=== PATIENT | female | born 1940 | race Hispanic/Latino ===

== ENCOUNTER 2020-04-17 15:16 | Inpatient (IN) | payer OTHER ==
[~2020-04-17] VITALS: Ht 162.6 cm; Wt 88.5 kg
[~2020-04-17 15:16] MED LIST: CYCLOBENZAPRINE5 MG PO; GLYBURIDE PO; LEVOTHYROXINE PO; LISINOPRIL; LOSARTAN-HCTZ1 EACH PO; METFORMIN HCL1000 MG; METFORMIN PO; TRAMADOL PO; TUMS200 MG PO; TYLENOL EXTRA500 MG PO; ZYRTEC10 M3; aleve; sudafed; symbicort inhaler
--- OUTSIDE RECORDS SUMMARY | 2020-04-17 15:45 | XMS REPORT | Clinical Summary ---
Author Author [facility] Address Unknown Phone Unavailable Care Team Providers Care Material Loader Name Role Phone Dirk Anna DO PCP Allergies Not on File Medications Not on file Active Problems Not on file Encounters Care Team Description Date Type Specialty 04/14/2020 Travel 04/12/2020 Travel 04/09/2020 Travel 04/07/2020 Travel 04/02/2020 Travel 03/29/2020 Travel 03/25/2020 Travel Ton Giraldo MD Pain in unspecified joint (Primary Dx) 03/22/2020 Transcribe Physical Therapy Orders 03/22/2020 Travel 03/18/2020 Travel 03/15/2020 Travel 03/10/2020 Travel 03/08/2020 Travel 03/03/2020 Travel 03/01/2020 Travel 02/25/2020 Travel 02/23/2020 Travel Ton Giraldo MD Pain in unspecified joint (Primary Dx) 02/23/2020 Transcribe Physical Therapy Orders 02/19/2020 Travel 02/16/2020 Travel 02/11/2020 Travel 02/09/2020 Travel 02/06/2020 Travel 02/04/2020 Travel 01/30/2020 Travel 01/26/2020 Travel 01/21/2020 Travel Ton Giraldo MD Pain in unspecified joint (Primary Dx) 01/21/2020 Transcribe Physical Therapy Orders Sebastian Costa MD 06/25/2019 Telephone Physical Therapy Sebastian Costa MD Osteoarthritis of multiple joints, unspe cified osteoarthritis type (Primary Dx) 06/16/2019 Transcribe Physical Therapy Orders Sebastian Costa MD Generalized osteoarthrosis, involving mu ltiple sites (Primary Dx) 04/17/2019 Transcribe Physical Therapy Orders after 04/17/2019 Social History Date Tobacco Use Types Packs/Day Years Used Never Assessed Sex Assigned at Date Recorded Not on file Industry Job Start Date Occupation Not on file Not on file Not on file Travel End Travel History Travel Start No recent travel history available. Date Recorded COVID-19 Exposure Response 04/14/2020 9:48 AM CDT In the last month, have you been in contact with No / Unsure someone who was confirmed or suspected to have Coronavirus / COVID-19? Last Filed Vital Signs Not on file Plan of Treatment Care Team Description Date Type Specialty Ton Giraldo MD [address] [place] [address] [phone] Josefina Sousa, FINISHED CLOTH EXAMINER 04/19/2020 Office Visit Physical Therapy Ton Giraldo MD [address] [place] [address] [phone] Josefina Sousa, FINISHED CLOTH EXAMINER 04/21/2020 Office Visit Physical Therapy Ton Giraldo MD [address] [place] [address] [phone] Josefina Sousa, FINISHED CLOTH EXAMINER 04/26/2020 Office Visit Physical Therapy Ton Giraldo MD [address] [place] [address] [phone] Josefina Sousa, FINISHED CLOTH EXAMINER 04/28/2020 Office Visit Physical Therapy Ton Giraldo MD [address] [place] [address] [phone] Josefina Sousa, FINISHED CLOTH EXAMINER 05/05/2020 Office Visit Physical Therapy Ton Giraldo MD [address], [place] 739[address] Subha Gann, PT 05/07/2020 Office Visit Physical Therapy Ton Giraldo MD [address] [place] [address] [phone] Vidya Alarcon, PT 05/10/2020 Office Visit Physical Therapy Ton Giraldo MD [address] [place] [address] [phone] Taniya Donohue, PT 05/12/2020 Office Visit Physical Therapy Ton Giraldo MD [address] [place] [address] [phone] Taniya Donohue, PT 05/20/2020 Office Visit Physical Therapy Ton Giraldo MD [address], [place] [phone] Josefina Sousa, FINISHED CLOTH EXAMINER 05/21/2020 Office Visit Physical Therapy Ton Giraldo MD [address], [place] [phone] Josefina Sousa, FINISHED CLOTH EXAMINER 05/24/2020 Office Visit Physical Therapy Health Maintenance Due Date Last Done Comments DIABETIC RETINAL EYE EXAM 1940 DIABETIC FOOT EXAM 1950 URINE MICROALBUMIN 1950 SHINGLES VACCINES (#1) 1990 INFLUENZA VACCINE 04/10/2020 05/18/2018, 06/01/2017, 06/15/2016, Additional history exists 65+ PNEUMOCOCCAL VACCINE Completed 06/18/2017, 05/10/2015 Results Not on fileafter 04/17/2019 Insurance Type Payer Benefit Subscriber ID Effective Phone Address Plan / Dates Group HMO DEVOTED HEALTH DEVOTED xxxxxx [id number] HEALTH resent Advance Directives For more information, please contact: [phone] Patient Rehab Aid Explanation Type Date Recorded Advance Directives, Living Will and Medical Power of Yoga Coordinator
--- OUTSIDE RECORDS SUMMARY | 2020-04-17 15:46 | XMS REPORT ---
Author Author GASTON FRANCO Organization Unknown Address Unknown Phone Care Team Providers Care Stunt Woman Name Role Phone DESTINEE FRANCO PP Unavailable Reason for Referral No Reason for Referral was given. History of Present Illness No HPI available. 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); (Active) Medication * Lisinopril-Hydrochlorothiazide 20-12.5 MG Oral Tablet (Active) * Levothyroxine Sodium 100 MCG Oral Tablet (Active) * ValACYclovir HCl 1 GM Oral Tablet; TAKE 2 TABLETS TWICE DAILY; Start Date: 09/17/2012; End Date: (Active) * PARoxetine HCl 20 MG Oral Tablet (Active) * Singulair 10 MG Oral Tablet (Active) * Naproxen 500 MG Oral Tablet (Active) * Abreva 10 % External Cream; APPLY AND RUB IN 5 TIMES DAILY UNTIL HEALED.; Start Date: 09/17/2012; End Date: (Active) * Gabapentin 100 MG Oral Capsule; TAKE 1 CAPSULE BEDTIME.MAY INCREASE TO 3 CAPSULES AT BEDTIME TOLERATED.; Start Date: 09/18/2012; End Date: (Active) * Symbicort 160-4.5 MCG/ACT Inhalation Aerosol; Start Date: 09/30/2012 (Active) * GlyBURIDE-MetFORMIN 5-500 MG Oral Tablet; TAKE 2 TABLET TWICE DAILY; Start Date: 09/30/2012; End Date: (Active) * Losartan Potassium-HCTZ 50-12.5 MG Oral Tablet; TAKE 1 TABLET TWICE DAILY.; Start Date: 09/30/2012 (Active) * TraMADol HCl 50 MG Oral Tablet; Start Date: 09/30/2012 (Active) * Cyanocobalamin 1000 MCG/ML Injection Solution; INJECT 1 ML INTRAMUSCULARLY ONCE A MONTH; Start Date: 09/30/2012; End Date: (Active) Allergies and Adverse Reactions * Penicillins (Active) Past Medical History * History of Herpes Simplex Type I (054.9); (Resolved) Procedures Procedure Procedure Date Date Completed Status Hysterectomy - - Resolved Social History * Never A Smoker (Active) Advance Directives * No Advance Directives available. Encounters * AUDIT 10/03/2012 * CAMILLA, Provider: DESTINEE FRANCO, Status: Will, Time: 8:15 AM 10/15/2012
--- OUTSIDE RECORDS SUMMARY | 2020-04-17 15:46 | XMS REPORT ---
Author Author Augustus GASTON Eduardo Organization Unknown Address Unknown Phone Care Team Providers Care Coreroom Foundry Laborer Name Role Phone Ping Coffman PP Unavailable Reason for Referral No Reason for Referral was given. History of Present Illness No HPI available. Problems * Normal Routine History And Physical Senior Citizen (65-80) (V70.0); ( Active) * Sciatica (724.3); (Active) * Asthma (493.90); (Active) * Pain In Flank (789.09); (Active) * Limb Pain (729.5); (Active) * Anemia (285.9); (Active) * Visit For: Screening Exam For Malignant Neoplasm Cervix (V76.2); ( Active) * Allergic Rhinitis (477.9); (Active) * Depression With Anxiety (300.4); (Active) * Hypothyroidism (244.9); (Active) * Benign Essential Hypertension (401.1); (Active) * Type 2 Diabetes Mellitus - Uncomplicated, Controlled (250.00); (Active) * Vitamin B12 Deficiency (266.2); (Active) Medication * Levothyroxine Sodium 112 MCG Oral Tablet; TAKE ONE TABLET BY MOUTH EVERY DAY; Start Date: 07/21/2013; End Date: (Active) * Symbicort 160-4.5 MCG/ACT Inhalation Aerosol; INHALE 2 PUFFS DAILY PRN; Start Date: 09/30/2012 (Active) * Losartan Potassium-HCTZ 100-25 MG Oral Tablet; TAKE 1 TABLET DAILY.; Start Date: 09/30/2012; End Date: (Active) * TraMADol HCl 50 MG Oral Tablet; TAKE ONE TABLET BY MOUTH EVERY 12 HOURS NEEDED; Start Date: 09/30/2012; End Date: (Active) * GlyBURIDE-MetFORMIN 5-500 MG Oral Tablet; TAKE TWO TABLETS BY MOUTH TWICE A DAY; Start Date: 09/30/2012; End Date: (Active) * Nebulizer Compressor KIT; USE DIRECTED.; Start Date: 05/27/2013 (Active) * Levalbuterol HCl 1.25 MG/0.5ML Inhalation Nebulization Solution; TAKE 1 VIAL IN NEBULIZER 3 TIMES A DAY.; Start Date: 05/26/2013 (Active) * Caltrate 600+D Plus TABS; TAKE 1 TABLET DAILY DIRECTED. (Active) * Probiotic CAPS; TAKE 1 CAPSULE DAILY (Active) * Cyclobenzaprine HCl 5 MG Oral Tablet; TAKE ONE TABLET BY MOUTH EVERY NIGHT AT BEDTIME NEEDED; Start Date: 05/29/2013; End Date: (Active) * Naproxen 500 MG Oral Tablet; TAKE ONE TABLET BY MOUTH TWO TIMES A DAY WITH FOOD FOR 7 DAYS THEN TAKE ONE TABLET BY MOUTH EVERY 12 HOURS NEEDED; Start Date: 09/22/2013; End Date: (Active) * Betamethasone Valerate 0.1 % External Cream; APPLY SPARINGLY TO AFFECTED AREA(S) TWICE DAILY; Start Date: 12/19/2013; End Date: (Active) * Clotrimazole Anti-Fungal 1 % External Cream; APPLY SPARINGLY TO AFFECTED AREA(S) TWICE DAILY; Start Date: 12/19/2013; End Date: (Active) * Azithromycin 250 MG Oral Tablet; TAKE 2 TABLETS ON DAY 1 THEN TAKE 1 TABLET A DAY FOR 4 DAYS.; Start Date: 12/25/2013; End Date: (Active) * Blood Pressure Monitor KIT; use as needed to check blood pressure; Start Date: 01/09/2014 (Active) Allergies and Adverse Reactions * Penicillins (Active) * Adhesive Tape (Active) Past Medical History * History of Herpes Simplex Type I (054.9); (Resolved) * History of Vitamin B12 Deficiency (266.2); (Resolved) * 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); ( Resolved) * 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); (Resolved) * History of Vaccines Prophylactic Need Against Influenza (V04.81); ( Resolved) Procedures Procedure Procedure Date Date Completed Status Hysterectomy - - Resolved Tonsillectomy - - Resolved Cataract Surgery - - Resolved Cholecystectomy - - Resolved Thyroid Surgery Total Thyroidectomy - - Resolved Immunization * Influenza (Lot #: [id number]) - Administered on: 05/19/2013 Family History * Family history of Congestive Heart Failure (Active) * Family history of Diabetes Mellitus (V18.0); (Active) * Family history of Osteoarthritis (V17.7); (Active) Social History * Never A Smoker (Active) * Alcohol Use (Active) * Marital History - Single (Active) * Occupation: Retired (Active) Treatment Plan * Medication Use 12/19/2013 Routine Advance Directives * No Advance Directives available. Encounters * AUDIT 01/14/2014 * JUANP, Provider: DESTINEE FRANCO, Status: Will, Time: 10:30 AM 03/30/2014
--- OUTSIDE RECORDS SUMMARY | 2020-04-17 15:46 | XMS REPORT ---
Author Author GASTON FRANCO Organization Unknown Address Unknown Phone Care Team Providers Care Reed Or Wind Instrument Repairer Name Role Phone DESTINEE FRANCO PP Unavailable Reason for Referral No Reason for Referral was given. History of Present Illness No HPI available. 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); (Active) * Vomiting (Symptom) (787.03); (Active) * Hypothyroidism (244.9); (Active) * Type 2 Diabetes Mellitus - Uncomplicated, Controlled (250.00); (Active) * Vaccines Prophylactic Need Against Influenza (V04.81); (Active) * Vitamin B12 Deficiency (266.2); (Active) * Asthma (493.90); (Active) Medication * Levothyroxine Sodium 112 MCG Oral Tablet; TAKE 1 TABLET DAILY.; Start Date: ; End Date: (Active) * Singulair 10 MG Oral Tablet (Active) * Losartan Potassium-HCTZ 50-12.5 MG Oral Tablet; TAKE 1 TABLET TWICE DAILY.; Start Date: 09/30/2012 (Active) * Cyanocobalamin 1000 MCG/ML Injection Solution; INJECT 1 ML INTRAMUSCULARLY ONCE A MONTH; Start Date: 09/30/2012; End Date: (Active) * TraMADol HCl 50 MG Oral Tablet; TAKE 1 TABLET EVERY 12 HOURS NEEDED.; Start Date: 09/30/2012; End Date: (Active) * Symbicort 160-4.5 MCG/ACT Inhalation Aerosol; INHALE 2 PUFFS DAILY PRN; Start Date: 09/30/2012 (Active) * GlyBURIDE-MetFORMIN 5-500 MG Oral Tablet; TAKE 2 TABLET TWICE DAILY; Start Date: 09/30/2012; End Date: (Active) * Aleve TABS; TAKE 2 TABLET DAILY (Active) * Azithromycin 250 MG Oral Tablet; TAKE 2 TABLETS ON DAY 1 THEN TAKE 1 TABLET A DAY FOR 4 DAYS.; Start Date: 05/26/2013; End Date: (Active) * Levalbuterol HCl 1.25 MG/0.5ML Inhalation Nebulization Solution; TAKE 1 VIAL IN NEBULIZER 3 TIMES A DAY.; Start Date: 05/26/2013; End Date: (Active) * Nebulizer Compressor KIT; USE DIRECTED.; Start Date: 05/27/2013 (Active) * Flexeril 5 MG TABS; TAKE 1 TABLET AT BEDTIME NEEDED. (Active) * Cyclobenzaprine HCl 5 MG Oral Tablet; TAKE ONE TABLET BY MOUTH EVERY NIGHT AT BEDTIME NEEDED; Start Date: 05/29/2013; End Date: (Active) Allergies and Adverse Reactions * Penicillins (Active) * Adhesive Tape (Active) Past Medical History * History of Herpes Simplex Type I (054.9); (Resolved) * History of Vitamin B12 Deficiency (266.2); (Resolved) Procedures Procedure Procedure Date Date Completed Status Hysterectomy - - Resolved Tonsillectomy - - Resolved Cataract Surgery - - Resolved Cholecystectomy - - Resolved Thyroid Surgery Total Thyroidectomy - - Resolved Immunization * Influenza (Lot #: [id number]) - Administered on: 05/19/2013 Family History * Family history of Congestive Heart Failure (Active) * Family history of Diabetes Mellitus (V18.0); (Active) * Family history of Osteoarthritis (V17.7); (Active) Social History * Never A Smoker (Active) * Alcohol Use (Active) * Marital History - Single (Active) * Occupation: Retired (Active) Advance Directives * No Advance Directives available. Encounters * AUDIT 05/29/2013 * ECL, Provider: DESTINEE FRANCO, Status: Pen, Time: 10:00 AM 08/11/2013
--- OUTSIDE RECORDS SUMMARY | 2020-04-17 15:46 | XMS REPORT ---
Author Author GASTON FRANCO Organization Unknown Address Unknown Phone Care Team Providers Care Toll Bridge Operator Name Role Phone DESTINEE FRANCO PP Unavailable Reason for Referral No Reason for Referral was given. History of Present Illness No HPI available. Problems * Normal Routine History And Physical Senior Citizen (65-80) (V70.0); ( Active) * Sciatica (724.3); (Active) * Depression With Anxiety (300.4); (Active) * Allergic Rhinitis (477.9); (Active) * Vomiting (Symptom) (787.03); (Active) * Asthma (493.90); (Active) * Vaccines Prophylactic Need Against Influenza (V04.81); (Active) * Hypothyroidism (244.9); (Active) * Benign Essential Hypertension (401.1); (Active) * Type 2 Diabetes Mellitus - Uncomplicated, Controlled (250.00); (Active) * Anemia (285.9); (Active) * Pain In Flank (789.09); (Active) * Limb Pain (729.5); (Active) * Urinary Tract Infection (599.0); (Active) * Vitamin B12 Deficiency (266.2); (Active) Medication * Levothyroxine Sodium 112 MCG Oral Tablet; TAKE ONE TABLET BY MOUTH EVERY DAY; Start Date: 07/21/2013; End Date: (Active) * Cyanocobalamin 1000 MCG/ML Injection Solution; INJECT 1 ML INTRAMUSCULARLY ONCE A MONTH; Start Date: 09/30/2012; End Date: (Active) * Symbicort 160-4.5 MCG/ACT Inhalation Aerosol; INHALE 2 PUFFS DAILY PRN; Start Date: 09/30/2012 (Active) * GlyBURIDE-MetFORMIN 5-500 MG Oral Tablet; TAKE 2 TABLET TWICE DAILY; Start Date: 09/30/2012; End Date: (Active) * Losartan Potassium-HCTZ 50-12.5 MG Oral Tablet; TAKE ONE TABLET BY MOUTH TWICE A DAY; Start Date: [...] CAPS; TAKE 1 CAPSULE DAILY (Active) * Ciprofloxacin HCl 500 MG Oral Tablet; TAKE 1 TABLET TWICE DAILY.; Start Date: 09/22/2013; End Date: (Active) * Naproxen 500 MG Oral Tablet; Take 1 po bid with food for seven days. 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); (Resolved) Procedures Procedure Procedure Date Date Completed Status Hysterectomy - - Resolved Tonsillectomy - - Resolved Cataract Surgery - - Resolved Cholecystectomy - - Resolved Thyroid Surgery Total Thyroidectomy - - Resolved Immunization * Influenza (Lot #: [id number]) - Administered on: 05/19/2013 Family History * Family history of Congestive Heart Failure (Active) * Family history of Diabetes Mellitus (V18.0); (Active) * Family history of Osteoarthritis (V17.7); (Active) Social History * Never A Smoker (Active) * Alcohol Use (Active) * Marital History - Single (Active) * Occupation: Retired (Active) Treatment Plan * [[facility]] CBC (INCLUDES DIFF/PLT) 10/17/2013 Routine Advance Directives * No Advance Directives available. Encounters * AUDIT 09/25/2013
--- OUTSIDE RECORDS SUMMARY | 2020-04-17 15:46 | XMS REPORT ---
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); (Active) Medication * Levothyroxine Sodium 100 MCG Oral Tablet (Active) * ValACYclovir HCl 1 GM Oral Tablet; TAKE 2 TABLETS TWICE DAILY; Start Date: 09/17/2012; End Date: (Active) * PARoxetine HCl 20 MG Oral Tablet (Active) * Singulair 10 MG Oral Tablet (Active) * Abreva 10 % External Cream; APPLY AND RUB IN 5 TIMES DAILY UNTIL HEALED.; Start Date: 09/17/2012; End Date: (Active) * Gabapentin 100 MG Oral Capsule; TAKE 1 CAPSULE BEDTIME.MAY INCREASE TO 3 CAPSULES AT BEDTIME TOLERATED.; Start Date: 09/18/2012; End Date: (Active) * Symbicort 160-4.5 MCG/ACT Inhalation Aerosol; Start Date: 09/30/2012 (Active) * Losartan Potassium-HCTZ 50-12.5 MG Oral Tablet; TAKE 1 TABLET TWICE DAILY.; Start Date: 09/30/2012 (Active) * GlyBURIDE-MetFORMIN 5-500 MG Oral Tablet; TAKE 2 TABLET TWICE DAILY; Start Date: 09/30/2012; End Date: (Active) * Cyanocobalamin 1000 MCG/ML Injection Solution; INJECT 1 ML INTRAMUSCULARLY ONCE A MONTH; Start Date: 09/30/2012; End Date: (Active) * TraMADol HCl 50 MG Oral Tablet; TAKE 1 TABLET EVERY 12 HOURS NEEDED.; Start Date: 09/30/2012; End Date: (Active) Allergies and Adverse Reactions * Penicillins (Active) Past Medical History * History of Herpes Simplex Type I (054.9); (Resolved) Procedures Procedure Procedure Date Date Completed Status Hysterectomy - - Resolved Social History * Never A Smoker (Active) Advance Directives * No Advance Directives available. Encounters * AUDIT 11/29/2012
--- OUTSIDE RECORDS SUMMARY | 2020-04-17 15:46 | XMS REPORT ---
Author Author GASTON FRANCO Organization Unknown Address Unknown Phone Care Team Providers Care Automotive Window Tinter Name Role Phone DESTINEE FRANCO PP Unavailable [...] TABS; TAKE 2 TABLET DAILY (Active) * Nebulizer Compressor KIT; USE DIRECTED.; Start Date: 05/27/2013 (Active) * Flexeril 5 MG TABS; TAKE 1 TABLET AT BEDTIME NEEDED. (Active) * Levalbuterol HCl 1.25 MG/0.5ML Inhalation Nebulization Solution; TAKE 1 VIAL IN NEBULIZER 3 TIMES A DAY.; Start Date: 05/26/2013 (Active) * Cyclobenzaprine HCl 5 MG Oral [...] - Resolved Immunization * Influenza (Lot #: [id number]) - Administered on: 05/19/2013 Family History * Family history of Congestive Heart Failure (Active) * Family history of Diabetes Mellitus (V18.0); (Active) * Family history of Osteoarthritis (V17.7); (Active) Social History * Never A Smoker (Active) * Alcohol Use (Active) * Marital History - Single (Active) * Occupation: Retired (Active) Advance Directives * No Advance Directives available. Encounters * AUDIT 06/23/2013 * ECL, Provider: DESTINEE FRANCO, Status: Will, Time: 10:00 AM 08/11/2013
--- OUTSIDE RECORDS SUMMARY | 2020-04-17 15:46 | XMS REPORT ---
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 Encounters * AUDIT 04/29/2013 * INJ, Provider: DESTINEE FRANCO, Status: Will, Time: 4:30 PM 05/26/2013
--- OUTSIDE RECORDS SUMMARY | 2020-04-17 15:46 | XMS REPORT ---
Author Author GASTON FRANCO Organization Unknown Address Unknown Phone Care Team Providers Care Liquid Fertilizer Servicer Name Role Phone DESTINEE FRANCO PP Unavailable Reason for Referral No Reason for Referral was given. History of Present Illness No HPI available. 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); (Active) * Vitamin B12 Deficiency (266.2); (Active) * Type 2 Diabetes Mellitus - Uncomplicated, Controlled (250.00); (Active) * Asthma (493.90); (Active) * Allergic Rhinitis (477.9); (Active) * Normal Routine History And Physical Senior Citizen (65-80) (V70.0); ( Active) * Sciatica (724.3); (Active) * Limb Pain (729.5); (Active) * Hypothyroidism (244.9); (Active) * Benign Essential Hypertension (401.1); (Active) * Depression With Anxiety (300.4); (Active) Medication * Levothyroxine Sodium 100 MCG Oral Tablet (Active) * PARoxetine HCl 20 MG Oral Tablet (Active) * Singulair 10 MG Oral Tablet (Active) * Symbicort 160-4.5 MCG/ACT Inhalation Aerosol; Start Date: 09/30/2012 (Active) * ValACYclovir HCl 1 GM Oral Tablet; TAKE 2 TABLETS TWICE DAILY; Start Date: 09/17/2012; End Date: (Active) * Gabapentin 100 MG Oral Capsule; TAKE 1 CAPSULE BEDTIME.MAY INCREASE TO 3 CAPSULES AT BEDTIME TOLERATED.; Start Date: 09/18/2012; End Date: (Active) * Abreva 10 % External Cream; APPLY AND RUB IN 5 TIMES DAILY UNTIL HEALED.; Start Date: 09/17/2012; End Date: (Active) * Losartan Potassium-HCTZ 50-12.5 [...] Procedures Procedure Procedure Date Date Completed Status Tonsillectomy - - Resolved Cataract Surgery - - Resolved Cholecystectomy - - Resolved Thyroid Surgery Total Thyroidectomy - - Resolved Hysterectomy - - Resolved Family History * Family history of Congestive Heart Failure (Active) * Family history of Diabetes Mellitus (V18.0); (Active) * Family history of Osteoarthritis (V17.7); (Active) Social History * Alcohol Use (Active) * Marital History - Single (Active) * Occupation: Retired (Active) * Never A Smoker (Active) Advance Directives * No Advance Directives available. Encounters * AUDIT 05/06/2013 * ECL, Provider: DESTINEE FRANCO, Status: Will, Time: 3:00 PM 05/13/2013 * INJ, Provider: DESTINEE FRANCO, Status: Will, Time: 4:30 PM 05/26/2013
--- OUTSIDE RECORDS SUMMARY | 2020-04-17 15:46 | XMS REPORT ---
Author Author Kevin GASTON Jayce Organization Unknown Address Unknown Phone Care Team Providers Care Moveman Name Role Phone Vidya Brown PP Unavailable Reason for Referral No Reason for Referral was given. History of Present Illness No HPI available. 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 (Active) Allergies and Adverse Reactions * Penicillins [...] - Resolved Immunization * Influenza (Lot #: [id number]) - Administered on: 05/19/2013 Family History * Family history of Congestive Heart Failure (Active) * Family history of Diabetes Mellitus (V18.0); (Active) * Family history of Osteoarthritis (V17.7); (Active) Social History * Never A Smoker (Active) * Alcohol Use (Active) * Marital History - Single (Active) * Occupation: Retired (Active) Treatment Plan * [QLH] TSH, 3RD GENERATION W/REFLEX TO FT4 05/13/2013 Routine * [QLH] VITAMIN B12 05/13/2013 Routine * [QLH] CMP W/EGFR 05/13/2013 Routine * [QLH] HEMOGLOBIN A1c 05/13/2013 Routine * [Q] LIPID PANEL WITH REFLEX TO DIRECT LDL 05/13/2013 Routine Advance Directives * No Advance Directives available. Encounters * AUDIT 05/19/2013 * INJ, Provider: DESTINEE FRANCO, Status: Will, Time: 4:30 PM 05/26/2013 * ECL, Provider: DESTINEE FRANCO, Status: Will, Time: 10:00 AM 08/11/2013
--- OUTSIDE RECORDS SUMMARY | 2020-04-17 15:46 | XMS REPORT ---
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 (Active) * Cyanocobalamin 1000 MCG/ML Injection Solution; [...] Thyroid Surgery Total Thyroidectomy - - Resolved Family History * Family [...] No Advance Directives available. Encounters * AUDIT 05/14/2013 * INJ, Provider: DESTINEE FRANCO, Status: Will, Time: 4:30 PM 05/26/2013 * ECL, Provider: DESTINEE FRANCO, Status: Will, Time: 10:00 AM 08/11/2013
--- OUTSIDE RECORDS SUMMARY | 2020-04-17 15:46 | XMS REPORT | Continuity of Care Document ---
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 Name Role Phone [employer] Unavailable Un available Problems Problem Status Onset Date Classification Date Reported Comments Source Rheumatoid arthritis, unspecified 07/30/2018 02/10/2019 ALVARADO Ortiz Asymptomatic menopausal state 04/23/2018 11/03/2018 ALVARADO Warren J18.9 - "PNEUMONIA, UNSPECIFIED ORGANIS" Active 10/04/2015 [employer] 493.90 - ASTHMA NOS Active 05/27/2013 ALVARADO Warren Limb Pain Active 01/14/2014 [facility] Sciatica Active 01/14/2014 [facility] Hypothyroidism Active 01/14/2014 [facility] Benign Essential Hypertension Active 01/14/2014 [facility] Depression With Anxiety Active 01/14/2014 [facility] Allergic Rhinitis Active 01/14/2014 [facility] Asthma Active 01/14/2014 [facility] Type 2 Diabetes Mellitus - Uncomplicated, Controlled Active 01/14/2014 [facility] Vitamin B12 Deficiency Active 01/14/2014 [facility] Solitary Thyroid Nodule Active 11/29/2012 [facility] Herpes Simplex Type I Active 09/18/2012 [facility] Nontoxic Solitary Thyroid Nodule Active 08/21/2013 [facility] Vomiting (Symptom) Active 11/17/2013 [facility] Vaccines Prophylactic Need Against Influenza Active 10/29/2013 [facility] Anemia Active 01/14/2014 [facility] Pain In Flank Active 01/14/2014 [facility] Urinary Tract Infection Active 11/17/2013 [facility] Other vp strategic partnerships (current) drug therapy 02/10/2019 ALVARADO Ortiz Age-related osteoporosis without current pathological fracture 02/10/2019 AIDAN [place] Encounter for therapeutic drug level monitoring 02/10/2019 ALVARADO Ortiz Unspecified acute lower respiratory infection 02/10/2019 ALVARADO [place] Osteoarthritis involving multiple joints on both sides of body Active Prob chente 04/23/2019 Beth Siddiqui Rheumatoid arthritis of multiple sites w ithout organ or system involvement with positive rheumatoid factor Active Problem Beth Milaloretta High risk medication use Active Diagnosis 04/10/2019 Beth Milaloretta Cervicalgia Active Diagnosis 04/10/2019 Beth Milaloretta Pain, joint, multiple sites Ac tive Diagnosis 0 04/10/2019 Beth Artur Counseling NOS Active Diagnosis 04/10/2019 Beth Milaloretta Medications Medication Details Route Status Patient Instructions Ordering Provider Order Date Source Hydroxychloroquine Sulfate 1.5 tabs Orally Active 200 MG Orally Once a day [facility] 05/17/2019 Beth Milaloretta Folic Acid 1 tablet Orally Active 1 mg Orally Once a day [facility] 05/17/2019 Beth Milaloretta Tramadol HCl 1 tablet as needed Orally Active 50 MG Orally bid [facility] 04/17/2019 Beth Milaloretta Enbrel Mini 50mg Subcutaneously Active 50mg Subcutaneously Onc e weekly [facility] 04/09/2019 Beth Artur Blood Pressure Monitor KIT ; S tart Date: 01/09/2014 (Active) Active 01/09/2014 [facility] Azithromycin 250 MG Oral Tablet ; Start Date: 12/25/2013; End Date: (Active) Active 12/25/2013 [facility] Betamethasone Valerate 0.1 % External Cream ; Start Date: 12/19/2013; End Date: (Active) Active 12/19/2013 [facility] Clotrimazole Anti-Fungal 1 % External Cream ; Start Date: 12/19/2013; End Date: (Active) Active 12/19/2013 [facility] Ciprofloxacin HCl 500 MG Oral Tablet ; Start Date: 09/22/2013; End Date: (Active) Active 09/22/2013 [facility] Naproxen 500 MG Oral Tablet ; Start Date: 09/22/2013; End Date: (Active) Active 09/22/2013 [facility] Levothyroxine Sodium 112 MCG Oral Tablet ; Start Date: 07/21/2013; End Date: (Active) Active 07/21/2013 [facility] Cyclobenzaprine HCl 5 MG Oral Tablet ; Start Date: 05/29/2013; End Date: (Active) Active 05/29/2013 [facility] Nebulizer Compressor KIT ; Sta rt Date: 05/27/2013 (Active) Active 05/27/2013 [facility] Azithromycin 250 MG Oral Tablet ; Start Date: 05/26/2013; End Date: (Active) Active 05/26/2013 [facility] Levalbuterol HCl 1.25 MG/0.5ML Inhalatio n Nebulization Solution ; Start Date: 05/26/2013 (Active) Active 05/26/2013 [facility] Symbicort 160-4.5 MCG/ACT Inhalation Aerosol ; Start Date: 09/30/2012 (Active) Active 09/30/2012 [facility] GlyBURIDE-MetFORMIN 5-500 MG Oral Tablet ; Start Date: 09/30/2012; End Date: (Active) Active 09/30/2012 [facility] Losartan Potassium-HCTZ 50-12.5 MG Oral Tablet ; Start Date: 09/30/2012; End Date: (Active) Active 09/30/2012 [facility] TraMADol HCl 50 MG Oral Tablet ; Start Date: 09/30/2012; End Date: (Active) Active 09/30/2012 [facility] Cyanocobalamin 1000 MCG/ML Injection Solution ; Start Date: 09/30/2012; End Date: (Active) Active 09/30/2012 [facility] Symbicort 160-4.5 MCG/ACT Inhalation Aerosol ; Start Date: 09/30/2012 (Active) Active 09/30/2012 [facility] Losartan Potassium-HCTZ 100-25 MG Oral Tablet ; Start Date: 09/30/2012; End Date: (Active) Active 09/30/2012 [facility] Gabapentin 100 MG Oral Capsule ; Start Date: 09/18/2012; End Date: (Active) Active 09/18/2012 [facility] ValACYclovir HCl 1 GM Oral Tablet ; Start Date: 09/17/2012; End Date: (Active) Active 09/17/2012 [facility] Abreva 10 % External Cream ; S tart Date: 09/17/2012; End Date: (Active) Active 09/17/2012 [facility] Levothyroxine Sodium 112 MCG Oral Tablet ; Start Date: ; End Date: (Active) Inactive [facility] Lisinopril-Hydrochlorothiazide 20-12.5 MG Oral Tablet (Active) Active [facility] Levothyroxine Sodium 100 MCG Oral Tablet (Active) Active [facility] PARoxetine HCl 20 MG Oral Tablet (Active) Active [facility] Singulair 10 MG Oral Tablet ( Active) Active [facility] Naproxen 500 MG Oral Tablet ( Active) Active [facility] Flexeril 5 MG TABS (Active) Active [facility] Aleve TABS (Active) Active [facility] Caltrate 600+D Plus TABS (Act micah) Active [facility] Probiotic CAPS (Active) Active [facility] Phenylephrine HCl 10 MG Oral Tablet (Active) Active [facility] Metformin HCl 1 tablet with a meal Orally Active 500 MG Orally Once a day [facility] Beth Namehreen Lantus SoloStar as directed Subcutaneous Active 100 UNIT/ML Subcutaneous [facility] Beth Namehreen Hydroxychloroquine Sulfate 1.5 tabs Orally Active 200 MG Orally [facility] Cetirizine HCl 1 tablet Orally Active 10 MG Orally Once a day [facility] Beth Zaragoza Atorvastatin Calcium 1 tablet Orally Active 40 MG [facility] Metronidazole 1 application to affected area Externally Active 0.75 % Externally Twice a day [facility] Beth Namehreenm Farxiga 1 tablet Orally Active 10 MG Orally Once a day Namehreen Jree n Namehreen Tramadol HCl 1 tablet as needed Orally Active 50 MG Orally bid [facility] Beth Zaragoza Stool Softener 1 capsule as ne eded Orally Active 100 MG Orally Once a day [facility] Beth Zaargoza Restasis 1 drop into affected eye Ophthalmic Active 0.05 % Ophthalmic Twice a day [facility] Beth Namehreen Folic Acid 1 tablet Orally Active 1 mg Orally [facility] Advair Diskus 1 puff Inhalation Active 100-50 MCG/DOSE Inhalat ion Twice a day [facility] Ipratropium-Albuterol 1 puff Inhalation Active 20-100 MCG/ACT Inhalation Four times a day [facility] Beth Namehreen Losartan Potassium 1 tablet Orally Active 100 MG Orally Once a day [facility] Beth Siddiqui Methotrexate 8 tabs Orally Active 2.5 mg Orally Once a we frank Siddiqui Allergies, Adverse Reactions, Alerts Substance Category Reaction Severity Reaction type Status Date Reported Comments Source Penicillin Adverse Reaction Info Not Available Adverse Reaction Active 04/09/2019 Beth Siddiqui Penicillins drug allergy drug allergy Active [facility] Immunizations Immunization Date Given Site Status Last Updated Comments Source Influenza 05/19/2013 completed [facility] Results No Data Provided for This Section Pathology Reports No Data Provided for This Section Diagnostic Reports Report Value Date Source Hand 3 views Bilateral DX CLIN ICAL HISTORY: - M06.9 Rheumatoid arthritis, unspecified; Z79.899 Other vp strategic partnerships (current) drug therapy AGE: 78 years GENDER: Female TECHNIQUE:Bilateral hand radiographs, 3 views. COMPARISON: None FINDINGS: Moderate osseous demineralization.. Left hand: There is no evidence of fracture or dislocation. Stable chronic appearing erosive change in the head of the second and fourth digits as well as in the base of the proximal phalanx of the thumb.. Moderate interphalangeal joint space narrowing in the PIP joints diffusely. Right hand: There is no evidence of fracture or dislocation. Stable erosive change in the heads of the middle phalanges of the third and fourth digits . IMPRESSION: Stable chronic erosive change in the bilateral hands. No specific radiographic evidence of acute erosive change. Moderate osseous demineralization. 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 No pulmonary or pleural-based abnormality is identified. The cardiomediastinal silhouette is normal. No acute osseous abnormality is identified. Surgical fixation hardware seen in the lower cervical spine. IMPRESSION: No acute cardiopulmonary abnormality. 07/23/2018 [facility] Bone Density DXA [employer] MA BONE DENSITY ASSESSMENT: 04/16/2018 CLINICAL DATA: Post menopausal. M81.0 Age-Related Osteoporosis Without Current Pathological Fracture/M81.0 Age-Related Osteoporosis Without Current Pathological Fracture FINDINGS: Bone density evaluation was performed 04/16/2018 on the right femur neck using a Hologic unit. The BMD average for the exam is 0.633 g/cm2. The T-score is -1.90 and the Z-score is 0.20. This matches the World Health Organization's criteria for osteopenia and places the patient at a medium risk for fracture. An additional bone density evaluation was performed 04/16/2018 on the left femur neck using a Hologic unit. The BMD average for the exam is 0.629 g/cm2. The T- score is -2.00 and the Z-score is 0.20. This matches the World Health Organization's criteria for osteopenia and places the patient at a medium risk for fracture. An additional bone density evaluation was performed 04/16/2018 on the right hip using a Hologic unit. The BMD average for the exam is 0.868 g/cm2. The T-score is -0.60 and the Z-score is 1.30. This matches the World Health Organization's criteria for normal bone density and places the patient within normal limits of fracture risk. An additional bone density evaluation was performed 04/16/2018 on the left hip using a Hologic unit. The BMD average for the exam is 0.883 g/cm2. The T-score is -0.50 and the Z-score is 1.40. This matches the World Health Organization's criteria for normal bone density and places the patient within normal limits of fracture risk. An additional bone density evaluation was performed 04/16/2018 on the AP L1-L4 region of spine using a Hologic unit. The BMD average for the exam is 1.205 g/cm2. The T-score is 1.40 and the Z-score is 4.00. This matches the World Health Organization's criteria for normal bone density and places the patient within normal limits of fracture risk. FRAX 10 year probability of major osteoporotic fracture is 13% and hip fracture is 3.4%. IMPRESSION: OSTEOPENIA Patient is at medium risk for fracture. This exam was interpreted at [id number] for KALI Nova 15. 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 Joint alignment is normal. Medial compartment joint space narrowing present. Tricompartmental osteophytes present most pronounced in the medial compartment. Superior patellar enthesophytes present. No joint effusion present. Peripheral vascular atherosclerosis present. Left knee: No fracture, periosteal reaction, or erosions identified. Joint alignment is normal. Medial compartment joint space narrowing present. Tricompartmental osteophytes present most pronounced in the medial compartment. Superior patellar enthesophytes present. No joint effusion present. Peripheral vascular atherosclerosis present. IMPRESSION: Right knee: Tricompartmental osteoarthrosis, Kellgren-Ryan grade 3, moderate most pronounced in the medial compartment. Left knee: Tricompartmental osteoarthrosis, Kellgren-Ryan grade 3, moderate most pronounced in the medial compartment. Peripheral vascular atherosclerosis. 07/20/2016 [facility] Foot 3 views bilateral DX EXAM : XR BILATERAL FEET 3 VIEWS DATE: 01/28/2016 11:43 AM CDT INDICATION: M79.671 Pain in right foot COMPARISON: None TECHNIQUE: AP, lateral, and oblique views of the bilateral feet. DISCUSSION: Generalized diminished bone mineral density. Bilateral hammertoe deformities. There is bilateral joint space narrowing osteophytes of the first MTP joint. There is also joint space narrowing and small osteophytes of the right second MTP joint. Sclerosis and collapse of the right second metatarsal head is present. No erosions identified. There are bilateral small calcaneal enthesophytes. Mild bilateral soft tissue swelling. IMPRESSION: 1. 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 2. Osteoarthrosis of the bilateral first and right second MTP joints. 3. Bilateral small calcaneal enthesophyt es. 01/28/2016 [facility] Knee 3 Views Bilateral DX EXAM : XR BILATERAL KNEES 3 VIEWS DATE: 01/20/2016 9:24 AM CDT INDICATION: M25.561 Pain in right knee COMPARISON: None available. TECHNIQUE: 3 views of bilateral knees FINDINGS: No acute fracture or malalignment is identified. Tricompartmental osteophytes are small to moderate size bilaterally. Medial joint space narrowing is identified in bilateral knees, with no subarticular cystic change or sclerosis. No excessive joint fluid is identified in either knee. Enthesophyte formation is identified at the superior patellar of the right knee. IMPRESSION: Tricompartmental osteoarthrosis of bilateral knee joints, most notably moderate in the bilateral medial compartments. 01/20/2016 [facility] Hand 2 views Bilateral DX EXAM : XR BILATERAL HANDS 2 VIEWS DATE: 01/20/2016 9:24 AM CDT INDICATION: M25.50 Pain in unspecified joint COMPARISON: None available. TECHNIQUE: PA, and lateral views of bilateral hands. FINDINGS: No acute fracture or malalignment is identified. Generalized osteopenia is identified. Multifocal small erosions are noted at the left thumb proximal phalanx, left index finger middle phalanx head, left ring finger middle phalanx head, and questionably at the left long finger middle phalanx head, as well as the right long and ring finger middle phalanx head and right ring finger proximal phalanx head and base. The joint spaces of the hands are preserved. Punctate vascular calcifications are noted at the left hand, radial to the third metacarpal midshaft. IMPRESSION: 1. Multifocal small erosive changes sug gest underlying inflammatory arthropathy, such as rheumatoid arthritis. 2. Generalized osteopenia. 01/20/2016 [facility] Chest 2 views DX EXAM: XR CHES T TWO VIEWS DATE: 10/04/2015 COMPARISON EXAMS: 05/27/2013 CLINICAL INDICATION: Pneumonia. TECHNIQUE: PA and Lateral views DISCUSSION: PA and lateral chest x-rays reveal no lung parenchymal or pleural abnormalities. The cardiomediastinal silhouette, hilar, and pulmonary vascular structures as well as the regional chest wall structures are normal in appearance. Tracheal and mainstem bronchial shadows are normal in appearance. Mild multilevel spondylosis is seen in the thoracic spine. Surgical hardware is again seen in the inferior cervical spine. IMPRESSION: No radiographic evidence of pneumonia. Stable appearance of the chest when compared with 05/27/2013. 10/04/2015 [facility] Chest 2 views No comparison ex am is available. Mild linear opacities are seen in the right lung base, likely due to atelectasis rather than pneumonia. No focal consolidation is seen. No pleural effusion or pneumothorax is seen. The heart size is within normal limits. Lower cervical spine fusion changes are seen. IMPRESSION: 1. Mild right basilar atelectasis. Pneum onia is less likely. Followup is recommended 05/27/2013 [facility] Consultation Notes No Data Provided for This Section Discharge Summaries No Data Provided for This Section History and Physicals No Data Provided for This Section Vital Signs Vital Sign Value Date Comments Source Height 64 0 04/09/2019 Beth Najam Diastolic (mm Hg) 67 04/09/2019 Beth Najam Systolic (mm Hg) 130 04/09/2019 Beth Najam Weight 194 04/09/2019 Beth Najam Height 64 0 03/18/2019 Beth Najam Diastolic (mm Hg) 83 03/18/2019 Beth Najam Systolic (mm Hg) 142 03/18/2019 Beth Najam Weight 194.8 03/18/2019 Beth Najam Encounters Location Location Details Encounter Type Encounter Number Reason For Visit Attending Provider ADM Date DC Date Status Source AUDIT [id number] 09/18/2012 09/18/2012 [facility] AUDIT [id number] 09/30/2012 09/30/2012 [facility] AUDIT [id number] 10/03/2012 10/03/2012 [facility] FUP, Provi dale: HARIKA FRANCO, Status: Pen, Time: 8:15 AM [id number] 10/15/2012 10/03/2012 [facility] AUDIT [id number] 11/29/2012 11/29/2012 [facility] AUDIT [id number] 04/29/2013 04/29/2013 [facility] AUDIT [id number] 05/06/2013 05/07/2013 [facility] ECL, Provi dale: HARIKA FRANCO, Status: Pen, Time: 3:00 PM [id number] 05/13/2013 05/07/2013 [facility] AUDIT [id number] 05/14/2013 05/14/2013 [facility] AUDIT [id number] 05/19/2013 05/19/2013 [facility] AUDIT [id number] 05/20/2013 05/20/2013 [facility] INJ, Provi dale: HARIKA FRANCO, Status: Pen, Time: 4:30 PM [id number] 05/26/2013 05/20/2013 [facility] AUDIT [id number] 05/26/2013 05/26/2013 [facility] OD [id number] 493.90 - ASTHMA NOS HARIKA FRANCO 05/27/2013 Active [facility] AUDIT [id number] 05/29/2013 05/29/2013 [facility] AUDIT [id number] 06/02/2013 06/02/2013 [facility] AUDIT [id number] 06/21/2013 06/21/2013 [facility] AUDIT [id number] 06/23/2013 06/23/2013 [facility] AUDIT [id number] 07/24/2013 07/24/2013 [facility] AUDIT [id number] 07/25/2013 07/25/2013 [facility] MELANIE, Provi dale: HARIKA FRANCO, Status: Pen, Time: 10:00 AM [id number] 08/11/2013 07/25/2013 [facility] AUDIT [id number] 08/21/2013 08/21/2013 [facility] AUDIT [id number] 09/25/2013 09/25/2013 [facility] AUDIT [id number] 10/07/2013 10/07/2013 [facility] AUDIT [id number] 10/08/2013 10/08/2013 [facility] AUDIT [id number] 10/28/2013 10/28/2013 [facility] AUDIT [id number] 10/29/2013 10/29/2013 [facility] WWHelene, Provi dale: HARIKA FRANCO, Status: Pen, Time: 3:15 PM [id number] 11/03/2013 10/29/2013 [facility] AUDIT [id number] 11/04/2013 11/04/2013 [facility] AUDIT [id number] 11/07/2013 11/07/2013 [facility] AUDIT [id number] 11/10/2013 11/11/2013 [facility] AUDIT [id number] 11/12/2013 11/12/2013 [facility] AUDIT [id number] 11/14/2013 11/14/2013 [facility] AUDIT [id number] 11/17/2013 11/17/2013 [facility] MELANIE, Provi dale: HARIKA FRANCO, Status: Pen, Time: 10:30 AM [id number] 12/29/2013 11/17/2013 [facility] AUDIT [id number] 01/02/2014 01/02/2014 [facility] AUDIT [id number] 01/14/2014 01/14/2014 [facility] CAMILLA, Provi dale: HARIKA FRANCO, Status: Pen, Time: 10:30 AM [id number] 03/30/2014 01/14/2014 [facility] [id number] Chriss Pereira 10/04/2015 10/05/[address] [facility] [id number] 02 Harika Forrestisabelle 01/20/2016 01/21/[address] [facility] [id number] 03 Marquis Loza 01/28/2016 01/29/[address] [facility] [id number] 04 Robert Jesus 07/20/2016 07/21/[address] [facility] [id number] [facility] 04/16/2018 04/17/2018 [facility] [id number] [facility] 07/23/2018 07/24/[address] [facility] [id number] 07 Christen Lawsonsaf 06/05/2019 06/06/2019 [facility] Procedures No Data Provided for This Section Assessment and Plan No Data Provided for This Section Plan of Care Plan of Care Date Source Medication Use 12/19/2013 Routine 01/14/2014 [facility] Medication Use 12/19/2013 RoutineFollow- up visit in 3 months 12/29/2013 Routine 01/02/2014 [facility] [Q] IRON, TIBC AND FERRITIN PANEL 11/03/2013 Routine 11/17/2013 [facility] [Q] IRON, TIBC AND FERRITIN PANEL 11/03/2013 Routine 11/14/2013 [facility] [Q] IRON, TIBC AND FERRITIN PANEL 11/03/2013 Routine 11/12/2013 [facility] [Q] IRON, TIBC AND FERRITIN PANEL 11/03/2013 Routine 11/11/2013 [facility] [Q] IRON, TIBC AND FERRITIN PANEL 2013 Routine[QLH] VITAMIN B12 11/03/2013 Routine[QLH] SED RATE BY MODIFIED LAURELREN 11/03/2013 Routine[Q] SUREPATH PAP 11/03/2013 Routine 11/07/2013 [facility] [Q] IRON, TIBC AND FERRITIN PANEL 2013 Routine[QLH] VITAMIN B12 11/03/2013 Routine[QLH] SED RATE BY MODIFIED JACKERGREN 11/03/2013 Routine[Q] SUREPATH PAP 11/03/2013 RoutineFollow-up visit in 2 months 11/03/2013 Routine 11/04/2013 [facility] [QLH] CBC (INCLUDES DIFF/PLT) 10/17/2013 Routine 10/08/2013 [facility] [QLH] CBC (INCLUDES DIFF/PLT) 10/17/2013 Routine 10/07/2013 [facility] [QLH] CBC (INCLUDES DIFF/PLT) 10/17/2013 Routine 09/25/2013 [facility] [QLH] CMP W/EGFR 08/21/2013 Routine[QLH] TSH, 3RD GENERATION W/REFLEX TO FT4 08/21/2013 Routine[Q] LIPID PANEL WITH REFLEX TO DIRECT LDL 08/21/2013 Routine[QLH] CBC (INCLUDES DIFF/PLT) 08/21/2013 Routine[QLH] MICROALBUMIN, RANDOM URINE (W/CREATININE) 08/21/2013 Routine[QLH] HEMOGLOBIN A1c 08/21/2013 Routine 08/21/2013 [facility] XRAY Chest 2 views [id number] 05/26/2013 Routine 05/26/2013 [facility] [QLH] TSH, 3RD GENERATION W/REFLEX TO FT 4 05/13/2013 Routine[QLH] VITAMIN B12 05/13/2013 Routine[QLH] CMP W/EGFR 05/13/2013 Routine[QLH] HEMOGLOBIN A1c 05/13/2013 Routine[Q] LIPID PANEL WITH REFLEX TO DIRECT LDL 05/13/2013 Routine 05/19/2013 [facility] [QLH] TSH, 3RD GENERATION W/REFLEX TO FT 4 05/13/2013 Routine[QLH] VITAMIN B12 05/13/2013 Routine[QLH] CMP W/EGFR 05/13/2013 Routine[QLH] HEMOGLOBIN A1c 05/13/2013 Routine[Q] LIPID PANEL WITH REFLEX TO DIRECT LDL 05/13/2013 Routine 05/14/2013 [facility] Social History Social History Date Source No data available for this section 06/06/2019 ALVARADO Warren No data available for this section 07/24/2018 ALVARADO Ortiz Never A Smoker (Active) Alcoh ol Use (Active) Marital History - Single (Active) Occupation: Retired (Active) 01/14/2014 [facility] Family History Value Date S ource Family history of Congestive Heart Failu re (Active) Family history of Diabetes Mellitus (V18.0); (Active) Family history of Osteoarthritis (V17.7); (Active) 01/14/2014 [facility] Family history of Congestive Heart Failu re (Active) Family history of Diabetes Mellitus (V18.0); (Active) Family history of Osteoarthritis (V17.7); (Active) 01/02/2014 [facility] Family history of Congestive Heart Failu re (Active) Family history of Diabetes Mellitus (V18.0); (Active) Family history of Osteoarthritis (V17.7); (Active) 11/17/2013 [facility] Family history of Congestive Heart Failu re (Active) Family history of Diabetes Mellitus (V18.0); (Active) Family history of Osteoarthritis (V17.7); (Active) 11/14/2013 [facility] Family history of Congestive Heart Failu re (Active) Family history of Diabetes Mellitus (V18.0); (Active) Family history of Osteoarthritis (V17.7); (Active) 11/12/2013 [facility] Family history of Osteoarthritis (V17.7) ; (Active) Family history of Diabetes Mellitus (V18.0); (Active) Family history of Congestive Heart Failure (Active) 11/11/2013 [facility] Family history of Congestive Heart Failu re (Active) Family history of Diabetes Mellitus (V18.0); (Active) Family history of Osteoarthritis (V17.7); (Active) 11/07/2013 [facility] Family history of Congestive Heart Failu re (Active) Family history of Diabetes Mellitus (V18.0); (Active) Family history of Osteoarthritis (V17.7); (Active) 11/04/2013 [facility] Family history of Congestive Heart Failu re (Active) Family history of Diabetes Mellitus (V18.0); (Active) Family history of Osteoarthritis (V17.7); (Active) 10/29/2013 [facility] Family history of Congestive Heart Failu re (Active) Family history of Diabetes Mellitus (V18.0); (Active) Family history of Osteoarthritis (V17.7); (Active) 10/28/2013 [facility] Family history of Congestive Heart Failu re (Active) Family history of Diabetes Mellitus (V18.0); (Active) Family history of Osteoarthritis (V17.7); (Active) 10/08/2013 [facility] Family history of Congestive Heart Failu re (Active) Family history of Diabetes Mellitus (V18.0); (Active) Family history of Osteoarthritis (V17.7); (Active) 10/07/2013 [facility] Family history of Congestive Heart Failu re (Active) Family history of Diabetes Mellitus (V18.0); (Active) Family history of Osteoarthritis (V17.7); (Active) 09/25/2013 [facility] Family history of Congestive Heart Failu re (Active) Family history of Diabetes Mellitus (V18.0); (Active) Family history of Osteoarthritis (V17.7); (Active) 08/21/2013 [facility] Family history of Congestive Heart Failu re (Active) Family history of Diabetes Mellitus (V18.0); (Active) Family history of Osteoarthritis (V17.7); (Active) 07/25/2013 [facility] Family history of Congestive Heart Failu re (Active) Family history of Diabetes Mellitus (V18.0); (Active) Family history of Osteoarthritis (V17.7); (Active) 07/24/2013 [facility] Family history of Congestive Heart Failu re (Active) Family history of Diabetes Mellitus (V18.0); (Active) Family history of Osteoarthritis (V17.7); (Active) 06/23/2013 [facility] Family history of Congestive Heart Failu re (Active) Family history of Diabetes Mellitus (V18.0); (Active) Family history of Osteoarthritis (V17.7); (Active) 06/21/2013 [facility] Family history of Congestive Heart Failu re (Active) Family history of Diabetes Mellitus (V18.0); (Active) Family history of Osteoarthritis (V17.7); (Active) 06/02/2013 [facility] Family history of Congestive Heart Failu re (Active) Family history of Diabetes Mellitus (V18.0); (Active) Family history of Osteoarthritis (V17.7); (Active) 05/29/2013 [facility] Family history of Congestive Heart Failu re (Active) Family history of Diabetes Mellitus (V18.0); (Active) Family history of Osteoarthritis (V17.7); (Active) 05/26/2013 [facility] Family history of Congestive Heart Failu re (Active) Family history of Diabetes Mellitus (V18.0); (Active) Family history of Osteoarthritis (V17.7); (Active) 05/20/2013 [facility] Family history of Congestive Heart Failu re (Active) Family history of Diabetes Mellitus (V18.0); (Active) Family history of Osteoarthritis (V17.7); (Active) 05/19/2013 [facility] Family history of Congestive Heart Failu re (Active) Family history of Diabetes Mellitus (V18.0); (Active) Family history of Osteoarthritis (V17.7); (Active) 05/14/2013 [facility] Family history of Congestive Heart Failu re (Active) Family history of Diabetes Mellitus (V18.0); (Active) Family history of Osteoarthritis (V17.7); (Active) 05/07/2013 [facility] Family history of Congestive Heart Failu re (Active) Family history of Diabetes Mellitus (V18.0); (Active) Family history of Osteoarthritis (V17.7); (Active) 04/29/2013 [facility] Advance Directives Order Name Results Value Date Source Advance Directives Advance Dir ectives No Advance Directives available. 01/14/2014 [facility] Advance Directives Advance Dir ectives No Advance Directives available. 01/02/2014 [facility] Advance Directives Advance Dir ectives No Advance Directives available. 11/17/2013 [facility] Advance Directives Advance Dir ectives No Advance Directives available. 11/14/2013 [facility] Advance Directives Advance Dir ectives No Advance Directives available. 11/12/2013 [facility] Advance Directives Advance Dir ectives No Advance Directives available. 11/11/2013 [facility] Advance Directives Advance Dir ectives No Advance Directives available. 11/07/2013 [facility] Advance Directives Advance Dir ectives No Advance Directives available. 11/04/2013 [facility] Advance Directives Advance Dir ectives No Advance Directives available. 10/29/2013 [facility] Advance Directives Advance Dir ectives No Advance Directives available. 10/28/2013 [facility] Advance Directives Advance Dir ectives No Advance Directives available. 10/08/2013 [facility] Advance Directives Advance Dir ectives No Advance Directives available. 10/07/2013 [facility] Advance Directives Advance Dir ectives No Advance Directives available. 09/25/2013 [facility] Advance Directives Advance Dir ectives No Advance Directives available. 08/21/2013 [facility] Advance Directives Advance Dir ectives No Advance Directives available. 07/25/2013 [facility] Advance Directives Advance Dir ectives No Advance Directives available. 07/24/2013 [facility] Advance Directives Advance Dir ectives No Advance Directives available. 06/23/2013 [facility] Advance Directives Advance Dir ectives No Advance Directives available. 06/21/2013 [facility] Advance Directives Advance Dir ectives No Advance Directives available. 06/02/2013 [facility] Advance Directives Advance Dir ectives No Advance Directives available. 05/29/2013 [facility] Advance Directives Advance Dir ectives No Advance Directives available. 05/26/2013 [facility] Advance Directives Advance Dir ectives No Advance Directives available. 05/20/2013 [facility] Advance Directives Advance Dir ectives No Advance Directives available. 05/19/2013 [facility] Advance Directives Advance Dir ectives No Advance Directives available. 05/14/2013 [facility] Advance Directives Advance Dir ectives No Advance Directives available. 05/07/2013 [facility] Advance Directives Advance Dir ectives No Advance Directives available. 04/29/2013 [facility] Advance Directives Advance Dir ectives No Advance Directives available. 11/29/2012 [facility] Advance Directives Advance Dir ectives No Advance Directives available. 10/03/2012 [facility] Advance Directives Advance Dir ectives No Advance Directives available. 09/30/2012 [facility] Advance Directives Advance Dir ectives No Advance Directives available. 09/18/2012 [facility] Functional Status No Data Provided for This Section
--- OUTSIDE RECORDS SUMMARY | 2020-04-17 15:46 | XMS REPORT ---
Author Author GAST[facility] FRANCO Organization Unknown Address Unknown Phone Care Team Providers Care Client Experience Consultant Name Role Phone DESTINEE FRANCO PP Unavailable Reason for Referral No Reason for Referral was given. History of Present Illness No HPI available. Problems * Normal Routine History And Physical Senior Citizen (65-80) (V70.0); ( Active) * Sciatica (724.3); (Active) * Depression With Anxiety (300.4); (Active) * Allergic Rhinitis (477.9); (Active) * Vomiting (Symptom) (787.03); (Active) * Asthma (493.90); (Active) * Benign Essential Hypertension (401.1); (Active) * Hypothyroidism (244.9); (Active) * Type 2 Diabetes Mellitus - Uncomplicated, Controlled (250.00); (Active) * Pain In Flank (789.09); (Active) * Limb Pain (729.5); (Active) * Urinary Tract Infection (599.0); (Active) * Vitamin B12 Deficiency (266.2); (Active) * Anemia (285.9); (Active) * Visit For: Screening Exam For Malignant Neoplasm Cervix (V76.2); ( Active) Medication * Levothyroxine Sodium 112 MCG Oral [...] NEEDED; Start Date: 09/22/2013; End Date: (Active) Allergies [...] - Resolved Immunization * Influenza (Lot #: [id number]) - Administered on: 05/19/2013 Family History * Family history of Congestive Heart Failure (Active) * Family history of Diabetes Mellitus (V18.0); (Active) * Family history of Osteoarthritis (V17.7); (Active) Social History * Never A Smoker (Active) * Alcohol Use (Active) * Marital History - Single (Active) * Occupation: Retired (Active) Treatment Plan * [Q] IRON, TIBC AND FERRITIN PANEL 11/03/2013 Routine Advance Directives * No Advance Directives available. Encounters * AUDIT 11/17/2013 * [facility], Provider: DESTINEE FRANCO, Status: Will, Time: 10:30 AM 12/29/2013
--- OUTSIDE RECORDS SUMMARY | 2020-04-17 15:46 | XMS REPORT | Summary of Care ---
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 (current) drug therapy (Final) - Age-related osteoporosis without current pathological fracture (Final) - Encounter for therapeutic drug level monitoring (Final) - Unspecified acute lower respiratory infection (Final) - Discharge Disposition: Home or Self Care Attending Physician: Marquis Loza MD Referring Physician: Marquis Loza MD Vital Signs No data available for this section Problem List No data available for this section Allergies, Adverse Reactions, Alerts No data available for this section Medications No data available for this section Results No data available for this section Immunizations No data available for this section Procedures No data available for this section Social History No data available for this section Assessment and Plan No data available for this section
--- OUTSIDE RECORDS SUMMARY | 2020-04-17 15:46 | XMS REPORT ---
Author Author [facility] FRAN[facility] Organization Unknown Address Unknown Phone Care Team Providers Care Lawn Caretaker Name Role Phone DESTINEE FRANCO PP Unavailable Reason for Referral No Reason for Referral was given. History of Present Illness No HPI available. 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); (Active) * Sciatica (724.3); (Active) Medication * Lisinopril-Hydrochlorothiazide 20-12.5 MG Oral Tablet (Active) * Levothyroxine Sodium 100 MCG Oral Tablet (Active) * PARoxetine HCl 20 MG Oral Tablet (Active) * Singulair 10 MG Oral Tablet (Active) * Naproxen 500 MG Oral Tablet (Active) * ValACYclovir HCl 1 GM Oral Tablet; TAKE 2 TABLETS TWICE DAILY; Start Date: 09/17/2012; End Date: (Active) * Abreva 10 % External Cream; APPLY AND RUB IN 5 TIMES DAILY UNTIL HEALED.; Start Date: 09/17/2012; End Date: (Active) * Gabapentin 100 MG Oral Capsule; TAKE 1 CAPSULE BEDTIME.MAY INCREASE TO 3 CAPSULES AT BEDTIME TOLERATED.; Start Date: 09/18/2012; End Date: (Active) Allergies and Adverse Reactions * Penicillins (Active) Past Medical History * No Significant Medical History Procedures Procedure Procedure Date Date Completed Status Hysterectomy - - Resolved Social History * Never A Smoker (Active) Advance Directives * No Advance Directives available. Encounters * AUDIT 09/18/2012
--- OUTSIDE RECORDS SUMMARY | 2020-04-17 15:46 | XMS REPORT ---
Author Author GASTON FRANCO Organization Unknown Address Unknown Phone Care Team Providers Care Warehouse Associate Name Role Phone DESTINEE FRANCO PP Unavailable [...] TWICE DAILY.; Start Date: 09/30/2012 (Active) * Symbicort 160-4.5 MCG/ACT Inhalation Aerosol; INHALE 2 PUFFS DAILY PRN; Start Date: 09/30/2012 (Active) * Flexeril 5 MG TABS; TAKE 1 TABLET AT BEDTIME NEEDED. (Active) * GlyBURIDE-MetFORMIN 5-500 MG Oral Tablet; [...] Start Date: 05/29/2013; End Date: (Active) * TraMADol HCl 50 MG Oral Tablet; TAKE ONE TABLET BY MOUTH EVERY 12 HOURS NEEDED; Start Date: 09/30/2012; End Date: (Active) Allergies [...] - Resolved Immunization * Influenza (Lot #: [id number]) - Administered on: 05/19/2013 Family History * Family history of Congestive Heart Failure (Active) * Family history of Diabetes Mellitus (V18.0); (Active) * Family history of Osteoarthritis (V17.7); (Active) Social History * Never A Smoker (Active) * Alcohol Use (Active) * Marital History - Single (Active) * Occupation: Retired (Active) Advance Directives * No Advance Directives available. Encounters * AUDIT 06/21/2013 * ECL, Provider: DESTINEE FRANCO, Status: Will, Time: 10:00 AM 08/11/2013
--- OUTSIDE RECORDS SUMMARY | 2020-04-17 15:46 | XMS REPORT ---
Author Author [facility]ost[facility]STON Organization Unknown Address Unknown Phone Care Team Providers Care Compressor Operator Portable Name Role Phone Moriah Frankel PP Unavailable Reason for Referral No Reason [...] - Resolved Immunization * Influenza (Lot #: [id number]) - Administered on: 05/19/2013 Family History * Family history of Congestive Heart Failure (Active) * Family history of Diabetes Mellitus (V18.0); (Active) * Family history of Osteoarthritis (V17.7); (Active) Social History * Never A Smoker (Active) * Alcohol Use (Active) * Marital History - Single (Active) * Occupation: Retired (Active) Treatment Plan * [Q] IRON, TIBC AND FERRITIN PANEL 11/03/2013 Routine * [QLH] VITAMIN B12 11/03/2013 Routine * [QLH] SED RATE BY MODIFIED WESTERGREN 11/03/2013 Routine * [Q] SUREPATH PAP 11/03/2013 Routine Advance Directives * No Advance Directives available. Encounters * AUDIT 11/07/2013 * ECL, Provider: DESTINEE FRANCO, Status: Will, Time: 10:30 AM 12/29/2013
--- OUTSIDE RECORDS SUMMARY | 2020-04-17 15:46 | XMS REPORT ---
Author Author [facility] FRANCO Organization Unknown Address Unknown Phone Care Team Providers Care Manager Chemical Name Role Phone DESTINEE FRANCO PP Unavailable Reason for Referral No Reason for Referral was given. History of Present Illness No HPI available. 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 (Active) * Phenylephrine HCl 10 MG Oral Tablet; TAKE 1 TABLET EVERY 4 HOURS NEEDED. 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); ( Resolved) Procedures Procedure Procedure Date Date Completed Status Hysterectomy - - Resolved Tonsillectomy - - Resolved Cataract Surgery - - Resolved Cholecystectomy - - Resolved Thyroid Surgery Total Thyroidectomy - - Resolved Immunization * Influenza (Lot #: [id number]) - Administered on: 05/19/2013 Family History * Family history of Congestive Heart Failure (Active) * Family history of Diabetes Mellitus (V18.0); (Active) * Family history of Osteoarthritis (V17.7); (Active) Social History * Never A Smoker (Active) * Alcohol Use (Active) * Marital History - Single (Active) * Occupation: Retired (Active) Treatment Plan * [QLH] CMP W/EGFR 08/21/2013 Routine * [QLH] TSH, 3RD GENERATION W/REFLEX TO FT4 08/21/2013 Routine * [Q] LIPID PANEL WITH REFLEX TO DIRECT LDL 08/21/2013 Routine * [QLH] CBC (INCLUDES DIFF/PLT) 08/21/2013 Routine * [QLH] MICROALBUMIN, RANDOM URINE (W/CREATININE) 08/21/2013 Routine * [QLH] HEMOGLOBIN A1c 08/21/2013 Routine Advance Directives * No Advance Directives available. Encounters * AUDIT 08/21/2013
--- OUTSIDE RECORDS SUMMARY | 2020-04-17 15:46 | XMS REPORT ---
Author Author GASTON Lisa Organization Unknown Address Unknown Phone Care Team Providers Care Electrical Equipment Assembler Name Role Phone Gabriela Lisa PP Unavailable Reason for Referral No Reason [...] DAYS.; Start Date: 12/25/2013; End Date: (Active) Allergies and Adverse Reactions [...] - Resolved Immunization * Influenza (Lot #: [id number]) - Administered on: 05/19/2013 Family History * Family history of Congestive Heart Failure (Active) * Family history of Diabetes Mellitus (V18.0); (Active) * Family history of Osteoarthritis (V17.7); (Active) Social History * Never A Smoker (Active) * Alcohol Use (Active) * Marital History - Single (Active) * Occupation: Retired (Active) Treatment Plan * Medication Use 12/19/2013 Routine * Follow-up visit in 3 months 12/29/2013 Routine Advance Directives * No Advance Directives available. Encounters * AUDIT 01/02/2014 * [facility], Provider: DESTINEE FRANCO, Status: Will, Time: 10:30 AM 03/30/2014
--- OUTSIDE RECORDS SUMMARY | 2020-04-17 15:46 | XMS REPORT ---
Author Author GASTON FRANCO Organization Unknown Address Unknown Phone Care Team Providers Care Cyber Transport Systems Specialist Name Role Phone DESTINEE FRANCO PP [...] CAPS; TAKE 1 CAPSULE DAILY (Active) * TraMADol HCl 50 MG Oral Tablet; TAKE ONE TABLET BY MOUTH EVERY 12 HOURS NEEDED; Start Date: 09/30/2012; End Date: (Active) * Ciprofloxacin HCl 500 MG Oral Tablet; TAKE 1 TABLET TWICE DAILY.; Start Date: 09/22/2013; End Date: (Active) * Naproxen 500 MG Oral Tablet; Take 1 po bid with food for seven days. Then take q 12 hours prn.; Start Date: 09/22/2013; End Date: (Active) * Cyclobenzaprine HCl 5 MG Oral [...] - Resolved Immunization * Influenza (Lot #: [id number]) - Administered on: 05/19/2013 Family History * Family history of Congestive Heart Failure (Active) * Family history of Diabetes Mellitus (V18.0); (Active) * Family history of Osteoarthritis (V17.7); (Active) Social History * Never A Smoker (Active) * Alcohol Use (Active) * Marital History - Single (Active) * Occupation: Retired (Active) Advance Directives * No Advance Directives available. Encounters * AUDIT 10/28/2013
--- OUTSIDE RECORDS SUMMARY | 2020-04-17 15:46 | XMS REPORT ---
Author Author GASTON Stone Organization Unknown Address Unknown Phone Care Team Providers Care Child Support Agent Name Role Phone ChaseDee PP Unavailable Reason for Referral No Reason [...] - Resolved Immunization * Influenza (Lot #: [id number]) - Administered on: 05/19/2013 Family History * [...] No Advance Directives available. Encounters * AUDIT 11/14/2013 * ECL, Provider: DESTINEE FRANCO, Status: Pen, Time: 10:30 AM 12/29/2013
--- OUTSIDE RECORDS SUMMARY | 2020-04-17 15:46 | XMS REPORT ---
Author Author GASTON FRANCO Organization Unknown Address Unknown Phone Care Team Providers Care Hydraulic Rubbish Compactor Mechanic Name Role Phone DESTINEE FRANCO PP Unavailable Reason for Referral No Reason for Referral was given. History of Present Illness No HPI available. Problems * Depression With Anxiety (300.4); (Active) * Allergic Rhinitis (477.9); (Active) * Asthma (493.90); (Active) * Benign Essential Hypertension (401.1); (Active) * Hypothyroidism (244.9); (Active) * Type 2 Diabetes Mellitus - Uncomplicated, Controlled (250.00); (Active) * Urinary Tract Infection (599.0); (Active) * Vitamin B12 Deficiency (266.2); (Active) * Visit For: Screening Exam For Malignant Neoplasm Cervix (V76.2); ( Active) * Sciatica (724.3); (Active) * Vomiting (Symptom) (787.03); (Active) * Anemia (285.9); (Active) * Limb Pain (729.5); (Active) * Pain In Flank (789.09); (Active) * Normal Routine History And Physical Senior Citizen (65-80) (V70.0); ( Active) Medication * Levothyroxine Sodium 112 [...] Intestine (211.3); ( Resolved) * History of Vaccines Prophylactic Need Against Influenza (V04.81); ( Resolved) * 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); (Resolved) Procedures Procedure Procedure Date Date Completed Status Thyroid Surgery Total Thyroidectomy - - Resolved Cholecystectomy - - Resolved Cataract Surgery - - Resolved Tonsillectomy - - Resolved Hysterectomy - - Resolved Immunization * Influenza (Lot #: [id number]) - Administered on: 05/19/2013 Family History * Family history of Osteoarthritis (V17.7); (Active) * Family history of Diabetes Mellitus (V18.0); (Active) * Family history of Congestive Heart Failure (Active) Social History * Never A Smoker (Active) * Occupation: Retired (Active) * Marital History - Single (Active) * Alcohol Use (Active) Treatment Plan * [Q] IRON, TIBC AND FERRITIN PANEL 11/03/2013 Routine Advance Directives * No Advance Directives available. Encounters * AUDIT 11/10/2013 * ECL, Provider: DESTINEE FRANCO, Status: Pen, Time: 10:30 AM 12/29/2013
--- OUTSIDE RECORDS SUMMARY | 2020-04-17 15:46 | XMS REPORT ---
Author Author DevGASTON Organization Unknown Address Unknown Phone Care Team Providers Care Priest Name Role Phone Madison MéndezCharu PP Unavailable Reason for Referral No Reason [...] - Resolved Immunization * Influenza (Lot #: [id number]) - Administered on: 05/19/2013 Family History * [...] No Advance Directives available. Encounters * AUDIT 11/12/2013 * ECL, Provider: DESTINEE FRANCO, Status: Pen, Time: 10:30 AM 12/29/2013
--- OUTSIDE RECORDS SUMMARY | 2020-04-17 15:46 | XMS REPORT | Summary of Care ---
Author Author [facility] Outpatient Imaging - [facility] Organization [facility] Outpatient Imaging - [facility] Address Unknown Phone Unavailable Encounter HQ Encntr_alias(FIN) [id number] Date(s): 04/16/18 - 04/16/18 [facility] Outpatient Imaging - [place] [address] [place] [phone] Encounter Diagnosis Asymptomatic menopausal state (Final) - 04/22/18 Age-related osteoporosis without current pathological fracture (Final) - Discharge Disposition: Home or Self [...]
--- OUTSIDE RECORDS SUMMARY | 2020-04-17 15:46 | XMS REPORT ---
Author Author NicoletommieVigneshJostinGASTON Organization Unknown Address Unknown Phone Care Team Providers Care Tourist Agent Name Role Phone OluJostinDorothea PP Unavailable Reason for Referral No Reason [...] DAILY PRN; Start Date: 09/30/2012 (Active) * Aleve TABS; TAKE 2 TABLET DAILY (Active) * Azithromycin 250 MG Oral Tablet; TAKE 2 TABLETS ON DAY 1 THEN TAKE 1 TABLET A DAY FOR 4 DAYS.; Start Date: 05/26/2013; End Date: (Active) * Levalbuterol HCl 1.25 MG/0.5ML Inhalation Nebulization Solution; TAKE 1 VIAL IN NEBULIZER 3 TIMES A DAY.; Start Date: 05/26/2013; End Date: (Active) * Flexeril 5 MG TABS; TAKE [...] - Resolved Immunization * Influenza (Lot #: [id number]) - Administered on: 05/19/2013 Family History * Family history of Congestive Heart Failure (Active) * Family history of Diabetes Mellitus (V18.0); (Active) * Family history of Osteoarthritis (V17.7); (Active) Social History * Never A Smoker (Active) * Alcohol Use (Active) * Marital History - Single (Active) * Occupation: Retired (Active) Treatment Plan * XRAY Chest 2 views [phone] 05/26/2013 Routine Advance Directives * No Advance Directives available. Encounters * AUDIT 05/26/2013 * ECL, Provider: DESTINEE FRANCO, Status: Will, Time: 10:00 AM 08/11/2013
--- OUTSIDE RECORDS SUMMARY | 2020-04-17 15:46 | XMS REPORT ---
Author Author GASTON FRANCO Organization Unknown Address Unknown Phone Care Team Providers Care Heel Slicker Name Role Phone DESTINEE FRANCO PP Unavailable [...] - Resolved Immunization * Influenza (Lot #: [id number]) - Administered on: 05/19/2013 Family History * Family history of Congestive Heart Failure (Active) * Family history of Diabetes Mellitus (V18.0); (Active) * Family history of Osteoarthritis (V17.7); (Active) Social History * Never A Smoker (Active) * Alcohol Use (Active) * Marital History - Single (Active) * Occupation: Retired (Active) Treatment Plan * [[facility]] CBC (INCLUDES DIFF/PLT) 10/17/2013 Routine Advance Directives * No Advance Directives available. Encounters * AUDIT 10/07/2013
--- OUTSIDE RECORDS SUMMARY | 2020-04-17 15:46 | XMS REPORT ---
Author Author GASTON FRANCO Organization Unknown Address Unknown Phone Care Team Providers Care Apple Turner Name Role Phone DESTINEE FRANCO PP Unavailable [...] Influenza (V04.81); (Active) Medication * Levothyroxine Sodium 112 MCG [...] - Resolved Immunization * Influenza (Lot #: [id number]) - Administered on: 05/19/2013 Family History * Family history of Congestive Heart Failure (Active) * Family history of Diabetes Mellitus (V18.0); (Active) * Family history of Osteoarthritis (V17.7); (Active) Social History * Never A Smoker (Active) * Alcohol Use (Active) * Marital History - Single (Active) * Occupation: Retired (Active) Advance Directives * No Advance Directives available. Encounters * AUDIT 05/20/2013 * INJ, Provider: DESTINEE FRANCO, Status: Will, Time: 4:30 PM 05/26/2013 * ECL, Provider: DESTINEE FRANCO, Status: Will, Time: 10:00 AM 08/11/2013
--- OUTSIDE RECORDS SUMMARY | 2020-04-17 15:46 | XMS REPORT ---
Author Author GASTON FRANCO Organization Unknown Address Unknown Phone Care Team Providers Care Box Fabricator Name Role Phone DESTINEE FRANCO PP Unavailable [...] - Resolved Immunization * Influenza (Lot #: [id number]) - Administered on: 05/19/2013 Family History * Family history of Congestive Heart Failure (Active) * Family history of Diabetes Mellitus (V18.0); (Active) * Family history of Osteoarthritis (V17.7); (Active) Social History * Never A Smoker (Active) * Alcohol Use (Active) * Marital History - Single (Active) * Occupation: Retired (Active) Advance Directives * No Advance Directives available. Encounters * AUDIT 06/02/2013 * ECL, Provider: DESTINEE FRANCO, Status: Will, Time: 10:00 AM 08/11/2013
--- OUTSIDE RECORDS SUMMARY | 2020-04-17 15:46 | XMS REPORT ---
Author Author GASTON Stone Organization Unknown Address Unknown Phone Care Team Providers Care Agency Sales Representative Name Role Phone ChaseDee PP Unavailable Reason [...] Start Date: 07/21/2013; End Date: (Active) * Singulair 10 MG Oral Tablet (Active) * Cyanocobalamin 1000 MCG/ML Injection Solution; [...] - Resolved Immunization * Influenza (Lot #: [id number]) - Administered on: 05/19/2013 Family History * Family history of Congestive Heart Failure (Active) * Family history of Diabetes Mellitus (V18.0); (Active) * Family history of Osteoarthritis (V17.7); (Active) Social History * Never A Smoker (Active) * Alcohol Use (Active) * Marital History - Single (Active) * Occupation: Retired (Active) Advance Directives * No Advance Directives available. Encounters * AUDIT 07/24/2013 * ECL, Provider: DESTINEE FRANCO, Status: Will, Time: 10:00 AM 08/11/2013
--- OUTSIDE RECORDS SUMMARY | 2020-04-17 15:46 | XMS REPORT ---
Author Author GASTON Stone Organization Unknown Address Unknown Phone Care Team Providers Care Medical Staff Services Coordinator Name Role Phone ChaseDee PP Unavailable Reason [...] - Resolved Immunization * Influenza (Lot #: [id number]) - Administered on: 05/19/2013 Family History * [...] Routine * [[facility]] SED RATE BY MODIFIED LAURELREN 11/03/2013 Routine * [Q] SUREPATH PAP 11/03/2013 Routine * Follow-up visit in 2 months 11/03/2013 Routine Advance Directives * No Advance Directives available. Encounters * AUDIT 11/04/2013
--- OUTSIDE RECORDS SUMMARY | 2020-04-17 15:46 | XMS REPORT ---
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); (Active) * Asthma (493.90); (Active) * Vaccines [...] A DAY.; Start Date: 05/26/2013 (Active) * TraMADol HCl 50 MG Oral Tablet; TAKE ONE TABLET BY MOUTH EVERY 12 HOURS NEEDED; Start Date: 09/30/2012; End Date: (Active) * Cyclobenzaprine HCl 5 [...] - Resolved Immunization * Influenza (Lot #: [id number]) - Administered on: 05/19/2013 Family History * Family history of Congestive Heart Failure (Active) * Family history of Diabetes Mellitus (V18.0); (Active) * Family history of Osteoarthritis (V17.7); (Active) Social History * Never A Smoker (Active) * Alcohol Use (Active) * Marital History - Single (Active) * Occupation: Retired (Active) Advance Directives * No Advance Directives available. Encounters * AUDIT 07/25/2013 * ECL, Provider: DESTINEE FRANCO, Status: Pen, Time: 10:00 AM 08/11/2013
--- OUTSIDE RECORDS SUMMARY | 2020-04-17 15:46 | XMS REPORT ---
Author Author Manny GASTON Jayce Organization Unknown Address Unknown Phone Care Team Providers Care Director Medical Surgical Name Role Phone Michelle Bryant PP Unavailable Reason for Referral No Reason [...] - Resolved Immunization * Influenza (Lot #: [id number]) - Administered on: 05/19/2013 Family History * Family history of Congestive Heart Failure (Active) * Family history of Diabetes Mellitus (V18.0); (Active) * Family history of Osteoarthritis (V17.7); (Active) Social History * Never A Smoker (Active) * Alcohol Use (Active) * Marital History - Single (Active) * Occupation: Retired (Active) Advance Directives * No Advance Directives available. Encounters * AUDIT 10/29/2013 * ARIS, Provider: DESTINEE FRANCO, Status: Will, Time: 3:15 PM 11/03/2013
--- OUTSIDE RECORDS SUMMARY | 2020-04-17 15:46 | XMS REPORT ---
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 Encounters * AUDIT 09/30/2012 * CAMILLA, Provider: DESTINEE FRANCO, Status: Will, Time: 8:15 AM 10/15/2012
--- OUTSIDE RECORDS SUMMARY | 2020-04-17 15:46 | XMS REPORT ---
Author Author GASTON FRANCO Organization Unknown Address Unknown Phone Care Team Providers Care Investigation Specialist Name Role Phone DESTINEE FRANCO PP [...] EVERY NIGHT AT BEDTIME NEEDED; Start Date: 05/29/2013 (Active) * Naproxen 500 MG Oral Tablet; [...] - Resolved Immunization * Influenza (Lot #: [id number]) - Administered on: 05/19/2013 Family History * Family history of Congestive Heart Failure (Active) * Family history of Diabetes Mellitus (V18.0); (Active) * Family history of Osteoarthritis (V17.7); (Active) Social History * Never A Smoker (Active) * Alcohol Use (Active) * Marital History - Single (Active) * Occupation: Retired (Active) Treatment Plan * [[facility]] CBC (INCLUDES DIFF/PLT) 10/17/2013 Routine Advance Directives * No Advance Directives available. Encounters * AUDIT 10/08/2013
--- OUTSIDE RECORDS SUMMARY | 2020-04-17 15:47 | XMS REPORT ---
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
--- OUTSIDE RECORDS SUMMARY | 2020-04-17 15:47 | XMS REPORT | Summary of Care ---
Author Author [facility] Outpatient Imaging - [facility] Organization [facility] Outpatient Imaging - [facility] Address Unknown Phone Unavailable Encounter HQ Encntr_aliadrian(FIN) [id number] Date(s): 06/05/19 - 06/05/19 [facility] Outpatient Imaging - [place] [address] [address] [phone] Discharge Disposition: Home or Self Care Attending Physician: Christen Elaine MD Referring Physician: Christen Elaine MD Vital Signs No data available for [...]
--- OUTSIDE RECORDS SUMMARY | 2020-04-17 15:47 | XMS REPORT | Summary of Care ---
Author Author [facility] Outpatient [facility] - [place] Organization [facility] Outpatient Imaging - [facility] Address Unknown Phone Unavailable Encounter HQ Encntr_stephenie(FIN) [id number] Date(s): 01/28/16 - 01/28/16 [facility] Outpatient Imaging - [address], [address] [phone] Discharge Disposition: Home Attending Physician: Marquis Loza MD Vital Signs No [...]
--- OUTSIDE RECORDS SUMMARY | 2020-04-17 15:47 | XMS REPORT | Summary of Care ---
Author Author [facility] Outpatient Imaging - [place] Organization [facility] Outpatient Imaging - [facility] Address Unknown Phone Unavailable Encounter HQ Encntr_stephenie(FIN) [id number] Date(s): 10/04/15 - 10/04/15 [facility] Outpatient Imaging - [address], [address] [phone] Discharge Disposition: Home Attending Physician: Chriss Pereira MD Vital Signs No data available for [...]
--- OUTSIDE RECORDS SUMMARY | 2020-04-17 15:47 | XMS REPORT ---
Author Author Lindsey Siddiqui Organization [employer] Address Unknown Phone Unavailable Care Team Providers Care Brand Recorder Name Role Phone Beth Siddiqui CP Unavailable [...]
--- OUTSIDE RECORDS SUMMARY | 2020-04-17 15:47 | XMS REPORT ---
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.79 Active Assessment Pain, joint, multiple sites M25.50 Active Assessment Counseling NOS Z71.9 Active Assessment 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.79 Active Assessment Osteoarthritis involving multiple joints on both sides of body M15.9 Active Medications Medication Code System Code Instructions Start Date End Date Status Dosage Metformin HCl ND 81838854238 500 MG Orally Once a day Active 1 tablet with a meal Lantus SoloStar ND 85934847158 100 UNIT/ML Subcutaneous Active as directed Hydroxychloroquine Sulfate ND 92235975027 200 MG Orally Once a day Active 1.5 tabs Enbrel Mini ND 46022069952 50mg Subcutaneously Once weekly April 09, 2019 Active 50mg Cetirizine HCl ND 52263973452 10 MG Orally Once a day Active 1 tablet Atorvastatin Calcium ND 45801072939 40 MG Orally Once a day Active 1 tablet Metronidazole ND 76282617919 0.75 % Externally Twice a day Active 1 application to affected area Farxiga ND 12656728464 10 MG Orally Once a day Acti ve 1 tablet Tramadol HCl ND 19553456539 50 MG Orally bid Active 1 tablet as needed Stool Softener ND 79523419869 100 MG Orally Once a day Active 1 capsule as needed Restasis ND 64325838678 0.05 % Ophthalmic Twice a day Active 1 drop into affected eye Folic Acid ND 36586917784 1 mg Orally Once a day Ac tive 1 tablet Advair Diskus [facility] 19093739692 100-50 MCG/DOSE Inhalation Twice a day Active 1 puff Ipratropium-Albuterol [facility] [address]-24 20-100 MCG /ACT Inhalation Four times a day Active 1 puff Losartan Potassium [facility] 60648454492 100 MG Orally Once a day Active 1 tablet Methotrexate [facility] 09950323787 2.5 mg Orally Once a week Active 8 tabs Vital Signs Date/Time: April 09, 2019 Height 64 in Blood Pressure Diastolic 67 mm Hg Blood Pressure Systolic 130 mm Hg Weight 194 lbs Results No Known Results Summary Purpose [employer]Clinical[employer] Submission
--- OUTSIDE RECORDS SUMMARY | 2020-04-17 15:47 | XMS REPORT ---
Author Author Lindsey Siddiqui Organization [employer] Address Unknown Phone Unavailable Care Team Providers Care Property Management Coordinator Name Role Phone Jr Siddiquieen CP Unavailable [...] End Date Status Dosage Metformin HCl ND 81995876633 500 MG Orally Once a day Active 1 tablet with a meal Restasis [facility] 37933609871 0.05 % Ophthalmic Twice a day Active 1 drop into affected eye Stool Softener ND 88423139253 100 MG Orally Once a day Active 1 capsule as needed Ipratropium-Albuterol [facility] [address]-46 20-100 MCG /ACT Inhalation Four times a day Active 1 puff Lantus SoloStar ND 40565230293 100 UNIT/ML Subcutaneous Active as directed Losartan Potassium ND 46092776695 100 MG Orally Once a day Active 1 tablet Tramadol HCl ND 57872539839 50 MG Orally bid Apr 17, 2019 A ctive 1 tablet as needed Methotrexate ND 47117348455 2.5 mg Orally Once a week Active 8 tabs Advair Diskus ND 78586783038 100-50 MCG/DOSE Inhalation Twice a day Active 1 puff Atorvastatin Calcium ND 55138478344 40 MG Orally Once a day Active 1 tablet Hydroxychloroquine Sulfate ND 14185953936 200 MG Orally Once a day May 17, 2019 Active 1.5 tabs Farxiga [facility] 39352699043 10 MG Orally Once a day Acti ve 1 tablet Metronidazole [facility] 70223030264 0.75 % Externally Twice a day Active 1 application to affected area Cetirizine HCl [facility] 63040423349 10 MG Orally Once a day Active 1 tablet Folic Acid [facility] 48218745476 1 mg Orally Once a day May 17 019 Active 1 tablet Vital Signs Date/Time: March 18, 2019 Height 64 in Blood Pressure Diastolic 83 mm Hg Blood Pressure Systolic 142 mm Hg Weight 194.8 lbs Results No Known Results Summary Purpose eClinicalWorks Submission
--- OUTSIDE RECORDS SUMMARY | 2020-04-17 15:47 | XMS REPORT | Summary of Care ---
Author Author [facility] Outpatient Imaging - [facility] Organization [facility] Outpatient Imaging - [facility] Address Unknown Phone Unavailable Encounter HQ Encntr_stephenie(FIN) [id number] Date(s): 07/20/16 - 07/20/16 [facility] Outpatient Imaging - [address], [address] [place] [phone] Discharge Disposition: Home or Self Care Attending Physician: Robert Jesus MD Vital Signs No data available for [...]
--- OUTSIDE RECORDS SUMMARY | 2020-04-17 15:47 | XMS REPORT ---
Author Author Lindsey Siddiqui Organization [employer] Address Unknown Phone Unavailable Care Team Providers Care Prestressed Concrete Laborer Name Role Phone Beth Siddiqui CP Unavailable [...]
--- OUTSIDE RECORDS SUMMARY | 2020-04-17 15:48 | XMS REPORT | Summary of Care ---
Author Author Matthew Mesa, GASTON Eduardo Organization Unknown Address Unknown Phone Unavailable Care Team Providers Care Propeller Engineer Name Role Phone FRANCISCO Cabrera, DEBORA Unavailable Unavailable JOAN Cabrera, DESTINEE Unavailable Unavailable GABRIEL Cabrera, ANUJ Unavailable Unavailable PALMA N.P., SAMUEL Unavailable Unavailable JOSEFINA P.A., SIDNEY Unavailable Unavailable ALMA Cabrera, ISAIAS Unavailable Unavailable JOAN MARSHALL AL, DESTINEE Eduardo Unavailable Unavailable GABRIEL MARSHALL AL, ANUJ Unavailable Unavailable ZACH SUBRAMANIAN AL, PENNIE Starr Unavailable Unavailable Unavailable Unavailable Functional Status Name Dates Details Functional status health issues are not documented Status: Name Dates Details Cognitive status health issues are not d ocumented Status: Problems Name Dates Details Encounter for diabetic foot exam (250.00 , E11.9) Status: Active Screening for STD (sexually transmitted disease) (V74.5, Z11.3) Status: Active Encounter for Medicare annual wellness e xam (V70.0, Z00.00) Status: Active 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 2) Status: Active Arthralgia of both knees (719.46, M25.56 1) Status: Active Arthralgia of left hand (719.44, M25.542 ) Status: Active Arthralgia of right hand (719.44, M25.54 1) Status: Active BMI 32.0-32.9,adult (V85.32, Z68.32) Status: Active Chronic constipation (564.00, K59.09) Status: Active Chronic hoarseness (784.42, R49.0) Status: Active Chronic left shoulder pain (719.41, M25. 512) Status: Active Chronic pain of left ankle (719.47, M25. 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 02) Status: Active Mild cognitive impairment (331.83, G31.8 4) Status: Active Mixed hyperlipidemia (272.2, E78.2) Status: Active Need for pneumococcal vaccination (V03.8 2, Z23) Status: Active Nonspecific finding on examination of ur ine (791.9, R82.90) Status: Active NSAID long-term use (V58.64, Z79.1) Status: Active Numbness and tingling in both hands (782 .0, R20.0) Status: Active On prednisone therapy (V58.65, Z79.52) Status: Active Osteoporosis screening (V82.81, Z13.820) Status: Active Pain in unspecified limb (729.5, M79.609 ) Status: Active Pain of lower extremity (729.5, M79.606) Status: Active Pain of paraspinal muscle (729.1, M79.18 ) Status: Active Pes planus of both feet (734, M21.41) Status: Active Plantar fasciitis, right (728.71, M72.2) Status: Active Polypharmacy (V58.69, Z79.899) Status: Active Refusal of statin medication by patient (V64.2, Z53.29) Status: Active Right foot pain (729.5, M79.671) Status: Active Right knee pain (719.46, M25.561) Status: Active Sciatica (724.3, M54.30) Status: Active 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 11) Status: Active Greater trochanteric bursitis of right h ip (726.5, M70.61) Status: Active Macrocytosis (289.89, D75.89) Status: Active Dry skin (701.1, L85.3) Status: Active Acute bronchitis, unspecified organism ( 466.0, J20.9) Status: Active Lower respiratory infection (519.8, J22) Status: Active Postmenopausal osteoporosis (733.01, M81 .0) Status: Active Rheumatoid arthritis (714.0, M06.9) Status: Active Encounter for monitoring of hydroxychlor oquine therapy (V58.83, Z51.81) Status: Active On methotrexate therapy (V58.69, Z79.899 ) Status: Active Acute URI (465.9, J06.9) Status: Active Active asthma (493.90, J45.909) Status: Active Diabetes mellitus type 2, controlled (25 0.00, E11.9) Status: Active Essential hypertension, benign (401.1, I 10) Status: Active Medications Name Dates Details Losartan Potassium-HCTZ 100-25 MG Oral T ablet TAKE 1 TABLET Daily NEEDS OFFICE VISIT Quantity: 30 DESTINEE FRANCO M.D. * Start : 13-Sep-2018 Active Nebulizer Compressor KIT USE DIRECTED. * Quantity: 1 Refills: 0 DESTINEE FRANCO M.D. * Start : 27-May-2013 Active Blood Pressure Monitor KIT use as needed to check blood pressure * Quantity: 1 Refills: 0 DESTINEE FRANCO M.D. * Start : 09-Jan-2014 Active Advair Diskus 100-50 MCG/DOSE Inhalation Aerosol Powder Breath Activated INHALE 1 PUFFS TWICE DAILY * Quantity: 3 Refills: 0 DESTINEE FRANCO M.D. * Start : 21-May-2018 Active 60 Each Pack Acyclovir 5 % External Ointment APPLY A SMALL AMOUNT 3 TIMES DAILY DIRECTED. * Quantity: 1 Refills: 0 PALMA N.P., SAMUEL * Start : 25-Jan-2015 Active 15 GM Tube Gabapentin 300 MG Oral Capsule TAKE ONE CAPSULE BY MOUTH AT BEDTIMEneeds office visit * Quantity: 30 Refills: 0 DESTINEE FRANCO M.D. * Start : 17-Oct-2018 Active traMADol HCl - 50 MG Oral Tablet TAKE ONE TABLET BY MOUTH EVERY 12 HOURS NEEDED * Quantity: 60 Refills: 2 DESTINEE FRANCO M.D. * Start : 30-Sep-2018 Active Albuterol Sulfate 1.25 MG/3ML Inhalation Nebulization Solution USE 1 UNIT DOSE IN NEBULIZER EVERY 4 TO 6 HOURS NEEDED. * Quantity: 3 Refills: 1 DESTINEE FRANCO M.D. * Start : 04-Oct-2015 Active 25 x 3 ML Plas Cont Fluticasone Propionate 50 MCG/ACT Nasal Suspension USE 1 SPRAY IN EACH NOSTRIL TWO TIMES A DAY * Quantity: 1 Refills: 4 DESTINEE FRANCO M.D. * Start : 22-Jul-2018 Active 16 GM Bottle Systane Balance SOLN 1 drop BID PRN OU * Refills: 0 Active Multiple Vitamin TABS TAKE 1 TABLET DAILY. * Refills: 0 * Start : 24-Mar-2016 Active Folic Acid 1 MG Oral Tablet TAKE 2 TABLETS DAILY * Quantity: 180 Refills: 1 GABRIEL Cabrera ANUJ * Start : 24-Mar-2016 Active Levothyroxine Sodium 112 MCG Oral Tablet TAKE ONE TABLET BY MOUTH DAILY * Quantity: 90 Refills: 0 DESTINEE FRANCO M.D. * Start : 30-Sep-2018 Active metFORMIN HCl ER 500 MG Oral Tablet Extended Release 24 Hour TAKE ONE TABLET BY MOUTH TWICE A DAY * Quantity: 180 Refills: 1 ISAIAS MARQUEZ M.D. * Start : 15-Jun-2016 Active Nystatin 633183 UNIT/GM External Cream APPLY AND RUB IN A THIN FILM TO AFFECTED AREAS TWICE DAILY.(AM AND PM). * Quantity: 30 Refills: 2 DESTINEE FRANCO M.D. * Start : 19-Jun-2016 Active BD Pen Needle Short U/F 31G X 8 MM use once a day * Quantity: 1 Refills: 2 ISAIAS MARQUEZ M.D. * Start : 26-Aug-2018 Active 100 Unit Box Nebulizer/Tubing/Mouthpiece KIT USE DIRECTED. DX:J45.909, J2.8 * Quantity: 1 Refills: 0 DESTINEE FRANCO M.D. * Start : 03-Jan-2017 Active Accu-Chek Karine Plus In Vitro Strip USE TO TEST BLOOD GLUCOSE ONCE DAILY * Quantity: 100 Refills: 2 DEBORA SINGH M.D. * Start : 22-Jan-2017 Active raNITIdine HCl - 150 MG Oral Capsule TAKE 1 CAPSULE AT BEDTIME. * Refills: 0 Active Methotrexate 2.5 MG Oral Tablet TAKE 8 TABLETS BY MOUTH WEEKLY * Quantity: 40 Refills: 3 GABRIEL Cabrera DANIELShandra * Start : 12-Mar-2017 Active metroNIDAZOLE 0.75 % External Gel APPLY GM PRN * Refills: 0 Active 45 GM Tube Restasis 0.05 % Ophthalmic Emulsion * Refills: 0 Active GenTeal GEL APPLY STRIP PRN * Refills: 0 Active 15 ML Bottle Lantus SoloStar 100 UNIT/ML Subcutaneous Solution Pen-injector INJECT 22 UNITS UNDER THE SKIN EVERY NIGHT * Quantity: 2 Refills: 0 ISAIAS MARQUEZ M.D. * Start : 13-Jun-2018 Active 5 x 3 ML Pen TRUEplus Lancets 28G USE TO TEST BLOOD GLUCOSE ONCE DAILY * Quantity: 100 Refills: 2 ISAIAS MARQUEZ M.D. * Start : 05-Jun-2017 Active Hydroxychloroquine Sulfate 200 MG Oral Tablet TAKE ONE AND ONE-HALF TABLET BY MOUTH DAILY ONLY AFTER APPROVAL OF OPHTHALMOLOGI ST * Quantity: 135 Refills: 1 ANUJ RIOS M.D. * Start : 25-Jun-2017 Active Atorvastatin Calcium 10 MG Oral Tablet TAKE ONE TABLET BY MOUTH EVERY NIGHT AT BEDTIME FOR CHOLESTEROL * Quantity: 30 Refills: 2 ISAIAS MARQUEZ M.D. * Start : 05-Aug-2018 Active Alendronate Sodium 70 MG Oral Tablet TAKE 1 TABLET BY MOUTH ONCE WEEKLY 30 TO 60 MINUTES BEFORE BREAKFAST, ON AN EMPT Y STOMACH. DO NOT LIE DOWN AFTER TAKING MEDICATION. * Quantity: 12 Refills: 1 ANUJ RIOS M.D. * Start : 26-Feb-2018 Active tiZANidine HCl - 4 MG Oral Tablet TAKE 1 TABLET 3 TIMES DAILY NEEDED. * Quantity: 20 Refills: 0 DEBORA SINGH M.D. * Start : 15-Sep-2017 Active Acetaminophen 500 MG Oral Tablet TAKE 1 TABLET 3 TIMES DAILY * Refills: 0 Active Clindamycin HCl - 150 MG Oral Capsule 4 CAPS 1 HR prior to dentist visit. * Refills: 0 Active Wrist Splint Firm neutral position wrist splints for each wrist, to be worn at night only. * Quantity: 2 Refills: 0 ANUJ RIOS M.D. * Start : 22-Oct-2017 Active Citrucel TABS * Refills: 0 Active Vitamin B12 TR 1000 MCG Oral Tablet Extended Release * Refills: 0 Active Cetirizine HCl - 5 MG Oral Tablet TAKE 1 TABLET DAILY NEEDED. * Quantity: 90 Refills: 0 DESTINEE FRANCO M.D. Active Diclofenac Sodium 1 % Transdermal Gel APPLY TO UPPER EXTREMITIES, 2 GM OF GEL TO AFFECTED AREA 4 TIMES DAILY. DO NOT APPLY MORE THAN 8 GM DAILY TO ANY ONE AFFECTED JOINT. * Quantity: 1 Refills: 0 ANUJ RIOS M.D. * Start : 26-Nov-2017 Active 100 GM Tube Mupirocin 2 % External Ointment APPLY SPARINGLY TO AFFECTED AREA(S) TWICE DAILY * Quantity: 1 Refills: 0 PALMA N.P., SAMUEL * Start : 13-Dec-2017 Active 22 GM Tube valACYclovir HCl - 500 MG Oral Tablet TAKE 1 TABLET Twice daily take at the first sign of outbreak * Quantity: 10 Refills: 1 PALMA N.P.SAMUEL * Start : 17-Dec-2017 Active Shingrix 50 MCG Intramuscular Suspension Reconstituted INJECT 1 ML ONCE * Quantity: 1 Refills: 0 DESTINEE FRANCO M.D. * Start : 11-Mar-2018 Active Tdap (Adacel) INJECT 0.5 ML Intramuscular * Quantity: 1 Refills: 0 DESTINEE FRANCO M.D. * Start : 11-Mar-2018 Active 0.5 ML Syringe Turmeric Curcumin Oral Capsule 1 pill daily * Refills: 0 Active Ammonium Lactate 12 % External Cream APPLY AND RUB IN A THIN FILM TO AFFECTED AREAS TWICE DAILY.(AM AND PM). * Quantity: 1 Refills: 3 ISAIAS MARQUEZ M.D. * Start : 30-Apr-2018 Active 385 GM Bottle Farxiga 10 MG Oral Tablet TAKE 1 TABLET BY MOUTH EVERY MORNING with breakfast for blood sugar. Drink plent y of water. * Quantity: 30 Refills: 5 ISAIAS MARQUEZ M.D. * Start : 07-May-2018 Active Ipratropium [place] 0.03 % Nasal Solution USE 2 SPRAYS IN EACH NOSTRIL 3 TIMES DAILY NEEDED FOR NASAL CONGESTION * Quantity: 1 Refills: 0 JOSEFNIASIDNEY SOLANO * Start : 31-Aug-2018 Active 30 ML Bottle Benzonatate 100 MG Oral Capsule TAKE ONE TO TWO CAPSULES BY MOUTH EVERY 8 HOURS NEEDED FOR COUGH * Quantity: 40 Refills: 0 SIDNEY ARAIZA * Start : 19-Sep-2018 Active OneTouch Verio In Vitro Strip USE TO TEST BLOOD GLUCOSE ONCE DAILY (DX:E11.9) * Quantity: 100 Refills: 0 DESTINEE FRANCO M.D. * Start : 12-Nov-2018 Active OneTouch Delica Lancets 33G USE TO TEST BLOOD GLUCOSE ONCE DAILY * Quantity: 100 Refills: 0 DESTINEE FRANCO M.D. Start : 12-Nov-2018 Active Allergies and Adverse Reactions Name Dates Details Penicillins (Allergy) Status: Active Adhesive Tape (Allergy) Status: Active Past Medical History Name Dates Details History of Acute pharyngitis due to othe r specified organisms (462, J02.8) Status: Resolved History of Acute recurrent frontal sinus itis (461.1, J01.11) Status: Resolved History of Acute vaginitis (616.10, N76. 0) Status: Resolved History of adenomatous polyp of colon (V 12.72, Z86.010) Status: Resolved History of adverse drug reaction (V14.9, Z88.9) Status: Resolved History of breast pain Status: Resolved History of Chest discomfort (786.59, R07 .89) Status: Resolved History of common cold (V12.09, Z86.19) Status: Resolved History of Costochondral pain (786.52, R 07.1) Status: Resolved History of cystitis (V13.02, Z87.440) Status: Resolved History of flank pain (V13.89, Z87.898) Status: Resolved History of Grieving (309.0, F43.21) Status: Resolved History of Herpes simplex type 1 infecti on (054.9, B00.9) Status: Resolved History of herpes zoster (V12.09, Z86.19 ) Status: Resolved History of Hordeolum of right lower eyel id (373.11, H00.012) Status: Resolved History of nausea and vomiting (V12.79, Z87.898) Status: Resolved History of Need for hepatitis C screenin g test (V73.89, Z11.59) Status: Resolved History of Noninfectious diarrhea (787.9 1, K52.9) Status: Resolved History of Otitis media, serous, acute, without rupture, left (381.01, H65.02) Status: Resolved History of pneumonia (V12.61, Z87.01) Status: Resolved History of postnasal drip (V12.69, Z87.0 9) Status: Resolved History of sinusitis (V12.69, Z87.09) Status: Resolved History of Solitary thyroid nodule (241. 0, E04.1) Status: Resolved History of sore throat (V12.60, Z87.09) Status: Resolved History of TMJ arthralgia (524.62, M26.6 29) Status: Resolved History of unsteady gait (V15.89, Z87.89 8) Status: Resolved History of urinary frequency (V13.09, Z8 7.898) Status: Resolved History of UTI (urinary tract infection) (599.0, N39.0) Status: Resolved Procedures Procedure Dates Details History of Hysterectomy Completed History of Tonsillectomy Completed History of Cataract Surgery Completed History of Cholecystectomy Completed History of Thyroid Surgery Total Thyroidectomy Completed Immunization Name Dates Details Influenza Lot #: [id number] on: 19-May-2013 Influenza Lot #: [id number] on: 25-May-2014 Prevnar 13 Intramuscular Suspension Lot #: [id number] on: 10-May-2015 Fluzone Quadrivalent 0.5 ML Intramuscula r Suspension Lot #: [id number] on: 16-Aug-2015 Fluzone High-Dose SUSP Lot #: [id number] on: 15-Jun-2016 Fluzone High-Dose 0.5 ML Intramuscular S uspension Prefilled Syringe Lot #: [id number] on: 01-Jun-2017 Pneumovax 23 25 MCG/0.5ML Injection Inje ctable Lot #: [id number] on: 18-Jun-2017 Fluzone High-Dose 0.5 ML Intramuscular S uspension Prefilled Syringe Lot #: [id number] on: 18-May-2018 Family History Name Dates Details Family history of Osteoarthritis (V17.7) Comments: Family History Status: Active Family history of Congestive Heart Failu re Comments: Family History Status: Active Family history of Diabetes Mellitus (V18 .0) Comments: Family History Status: Active Name Dates Details Family history of leukemia (V16.6, Z80.6 ) Status: Active Name Dates Details Family history of cerebrovascular accide nt (CVA) (V17.1, Z82.3) Status: Active Family history of hypertension (V17.49, Z82.49) Status: Active Name Dates Details Family history of rheumatic fever (V17.4 9, Z82.49) Status: Active Name Dates Details Family history of Congestive Heart Failu re Status: Active Name Dates Details Family history of Diabetes Mellitus (V18 .0) Status: Active Social History Name Dates Details - Status: Name Dates Details Never smoker Vital Signs Date Test Result Details No Known Vitals to report Results Date Description Value Details Results not documented Plan of Care Name Dates Details Planned Observations Planned Goals not documented Interventions Provided Medication Changes* Margarita Mccall Lancets 33G - Renew * Margraita Cao In Vitro Strip - Renew Instructions Name Dates Details Instructions not documented Encounters Appointment; ANUJ RIOS M.D. Encounter Diagnosis: Problem not documented On: 26-Dec-2016 11:30 Appointment; DESTINEE FRANCO M.D. Encounter Diagnosis: Problem not documented On: 01-Jan-2017 11:00 Appointment; DESTINEE FRANCO M.D. Encounter Diagnosis: Problem not documented On: 22-Jan-2017 11:15 Appointment; DESTINEE FRANCO M.D. Encounter Diagnosis: Problem not documented On: 12-Feb-2017 11:15 Appointment; ANUJ RIOS M.D. Encounter Diagnosis: Problem not documented On: 26-Feb-2017 14:00 Appointment; ISAIAS MARQUEZ M.D. Encounter Diagnosis: Problem not documented On: 26-Mar-2017 15:00 Appointment; ISAIAS MARQUEZ M.D. Encounter Diagnosis: Problem not documented On: 23-Apr-2017 14:40 Appointment; ISAIAS MARQUEZ M.D. Encounter Diagnosis: Problem not documented On: 30-Apr-2017 14:00 Appointment; DESTINEE FRANCO M.D. Encounter Diagnosis: Problem not documented On: 01-Jun-2017 13:30 Appointment; DESTINEE FRANCO M.D. Encounter Diagnosis: Problem not documented On: 18-Jun-2017 15:15 Appointment; ANUJ RIOS M.D. Encounter Diagnosis: Problem not documented On: 25-Jun-2017 15:30 Appointment; ISAIAS MARQUEZ M.D. Encounter Diagnosis: Problem not documented On: 09-Jul-2017 8:40 Appointment; SAMUEL PALMA NP Encounter Diagnosis: Problem not documented On: 18-Jul-2017 15:30 Appointment; SAMUEL PALMA NP Encounter Diagnosis: Problem not documented On: 20-Jul-2017 12:30 Appointment; LINA TENORIO M.D. Encounter Diagnosis: Problem not documented On: 01-Aug-2017 13:00 Appointment; PRAVEENA PLATT D.O. Encounter Diagnosis: Problem not documented On: 15-Aug-2017 14:00 Appointment; ANUJ RIOS M.D. Encounter Diagnosis: Problem not documented On: 27-Aug-2017 14:30 Appointment; ANUJ RIOS M.D. Encounter Diagnosis: Problem not documented On: 12-Sep-2017 16:00 Appointment; DEBORA SINGH M.D. Encounter Diagnosis: Problem not documented On: 15-Sep-2017 10:00 Appointment; ISAIAS MARQUEZ M.D. Encounter Diagnosis: Problem not documented On: 15-Oct-2017 8:40 Appointment; DESTINEE FRANCO M.D. Encounter Diagnosis: Problem not documented On: 15-Oct-2017 14:30 Appointment; ANUJ RIOS M.D. Encounter Diagnosis: Problem not documented On: 22-Oct-2017 15:00 Appointment; [facility] Encounter Diagnosis: Problem not documented On: 22-Oct-2017 15:00 Appointment; [facility] Encounter Diagnosis: Problem not documented On: 29-Oct-2017 11:30 Appointment; [facility] Encounter Diagnosis: Problem not documented On: 05-Nov-2017 11:30 Appointment; [facility] Encounter Diagnosis: Problem not documented On: 12-Nov-2017 11:30 Appointment; MICKIE CERVANTES Encounter Diagnosis: Problem not documented On: 15-Nov-2017 9:00 Appointment; ANUJ RIOS M.D. Encounter Diagnosis: Problem not documented On: 26-Nov-2017 11:30 Appointment; SAMUEL PALMA NP Encounter Diagnosis: Problem not documented On: 13-Dec-2017 15:00 Appointment; SAMUEL PALMA NP Encounter Diagnosis: Problem not documented On: 17-Dec-2017 15:30 Appointment; ISAIAS MARQUEZ M.D. Encounter Diagnosis: Problem not documented On: 14-Jan-2018 8:40 Appointment; DESTINEE FRANCO M.D. Encounter Diagnosis: Problem not documented On: 11-Mar-2018 14:00 Appointment; DESTINEE FRANCO M.D. Encounter Diagnosis: Problem not documented On: 11-Mar-2018 14:15 Appointment; ANUJ RIOS M.D. Encounter Diagnosis: Problem not documented On: 25-Mar-2018 15:30 Appointment; ISAIAS MARQUEZ M.D. Encounter Diagnosis: Problem not documented On: 30-Apr-2018 14:40 Appointment; DEBORA SINGH M.D. Encounter Diagnosis: Problem not documented On: 18-May-2018 10:15 Appointment; DESTINEE FRANCO M.D. Encounter Diagnosis: Problem not documented On: 24-May-2018 13:30 Appointment; PRAVEENA PLATT D.O. Encounter Diagnosis: Problem not documented On: 15-Jul-2018 10:15 Appointment; DESTINEE FRANCO M.D. Encounter Diagnosis: Problem not documented On: 19-Jul-2018 15:30 Appointment; ANUJ RIOS M.D. Encounter Diagnosis: Problem not documented On: 22-Jul-2018 15:00 Appointment; ISAIAS MARQUEZ M.D. Encounter Diagnosis: Problem not documented On: 22-Jul-2018 16:00 Appointment; SIDNEY ROCHA P.A. Encounter Diagnosis: Problem not documented On: 31-Aug-2018 11:45 Appointment; SIDNEY ROCHA P.A. Encounter Diagnosis: Problem not documented On: 16-Sep-2018 11:15
--- OUTSIDE RECORDS SUMMARY | 2020-04-17 15:48 | XMS REPORT | Continuity of Care Document ---
Author Author [facility] t Organization [facility] Address [address] [place] [address] Phone Unavailable Care Team Providers Care Library Services Dean Name Role Phone Dirk Anna DO PCP ABBIE VERGARA Attphys Unavailable Bay Costa MD Attphys Christen Elaine Attphys SIDNEY ROCHA, PJack Attphys Unavailable Anuj Loza Attphys ISAIAS MARQUEZ M.D. Attphys Unavailable ANUJ LOZA M.D. Attphys Unavailable HARIKA HAYES M.D. Attphys Unavailable PRAVEENA PLATT D.O. Attphys Unavailable DEBORA PEREIRA M.D. Attphys Unavailable SAMUEL PALMA NP Attphys Unavailable MICKIE CERVANTES Attphys Unavailable [facility] Attphys Unavailable LINA TENORIO M.D. Attphys Unavailable DINO CHICAS M.D. Attphys Unavailable Frank Oliva Attphys ARUN OLIVA M.D. Attphys Unavailable DANNY GOVEA, P.ACharu Attphys Unavailable RENNY LAZO M.D. Attphys Unavailable EUNICE VIVAR NP Attphys Unavailable Sae Hayes Attphys MARQUES PARKS NP Attphys Unavailable Tila Pereira Attphys Payers Payer Name Policy Type Policy Number Effective Date Expiration Date S stephane DEVOTED HEALTHDEVOTED [id number] xxxxxx 2019 00:00:00 [place] [facility] Problems Condition Name Condition Details Condition Category Status Onset Date Resolution Date Last Treatment Date Treating Clinician Comments Source J18.9 - "PNEUMONIA, UNSPECIFIED ORGANIS" J18.9 - "PNEUMONIA, UNSPECIFIED ORGANIS" Active 10/04/2015 [facility] [place] Diagnosis Active 2015-10-04 00:01:00 2015-10-04 11:30:[facility]HMA NOS 493. 90 - ASTHMA NOS Active 05/27/2013 [facility] [place] Diagnosis Active 2013-05-27 00:01:00 2013-05-27 11:36: 00 Mayo Lazcano History of Acute pharyngitis due to other specified or ganisms History of Acute pharyngitis due to other specified organisms Problem Resolved [facility] History of Acute recurrent frontal sinusitis History o f Acute recurrent frontal sinusitis Problem Resolved [facility] History of Acute vaginitis History of Acute vaginitis Problem Resolved [facility] History of adenomatous polyp of colon History of adenomatous polyp of colon Problem Resolved [facility] History of nausea and vomiting History of nausea and vomiting Probl em Resolved [facility] History of Costochondral pain History of Costochondral pain Problem Resolved [facility] History of Herpes simplex type 1 infection History of Herpes simplex type 1 infection Problem Resolved [facility] History of herpes zoster History of herpes zoster Problem Resolved [facility] History of Need for hepatitis C screening test History of Need for hepatitis C screening test Problem Resolved [facility] History of Solitary thyroid nodule History of Solitary thyroid n odule Problem Resolved [facility] History of UTI (urinary tract infection) History of UT I (urinary tract infection) Problem Resolved [facility] Diabetes mellitus type 2, controlled Diabetes mellitus type 2, controlled Problem Active [facility] 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 Problem Active [facility] Refusal of statin medication by patient Refusal of statin me dication by patient Problem Active [facility] Intermittent claudication Intermittent claudication Problem Active [facility] Right knee pain Right knee pain Problem Active [facility] Arthralgia of right hand Arthralgia of right hand Problem Active [facility] BMI 32.0-32.9,adult BMI 32.0-32.9,adult Problem Active [facility] History of Chest discomfort History of Chest discomfort [facility] De Quervain's disease (tenosynovitis) De Quervain's disease (tenosynovitis) Problem Active [facility] Dietary iron deficiency anemia Dietary iron deficiency anemia Problem Active [facility] Diffuse arthralgia Diffuse arthralgia Problem Active [facility] Active asthma Active asthma Problem Active [facility] Late onset dysthymia Late onset dysthymia Problem Active [facility] Essential hypertension, benign Essential hypertension, benign Problem Active [facility] Frequent urination Frequent urination Problem Active [facility] History of Grieving History of Grieving Problem Resolved [facility] Headache Headache [facility] Irregular bowel habits Irregular bowel habits Problem Active [facility] Irritable bowel syndrome with diarrhea Irritable bowel syndr ome with diarrhea Problem Active [facility] Localized osteoarthritis of both knees Localized osteoarthri tis of both knees Problem Active [facility] Low back pain Low back pain Problem Active [facility] History of Noninfectious diarrhea History of Noninfectious diarr hea Problem Resolved [facility] Nonspecific finding on examination of urine Nonspecifi c finding on examination of urine Problem Active [facility] Pain of lower extremity Pain of lower extremity Problem Active [facility] Right foot pain Right foot pain Problem Active [facility] Sciatica Sciatica Problem Active [facility] Sicca syndrome Sicca syndrome Problem Active [facility] History of TMJ arthralgia History of TMJ arthralgia Problem Resolved [facility] Vitamin B12 deficiency Vitamin B12 deficiency Problem Active [facility] Vitiligo Vitiligo Problem Active [facility] Pain in unspecified limb Pain in unspecified limb Problem Active [facility] Generalized OA Generalized OA Problem Active [facility] Allergic rhinitis, seasonal Allergic rhinitis, seasonal Problem Active [facility] Chronic hoarseness Chronic hoarseness Problem Active [facility] Major depression, recurrent, chronic Major depression, recur rent, chronic Problem Active [facility] On methotrexate therapy On methotrexate therapy Problem Active [facility] Hypothyroidism Hypothyroidism Problem Active [facility] Influenza vaccine needed Influenza vaccine needed Problem Active [facility] Need for vaccination Need for vaccination Problem Active [facility] Postmenopausal osteoporosis Postmenopausal osteoporosis Problem Active [facility] Vitamin D deficiency Vitamin D deficiency Problem Active [facility] Mixed hyperlipidemia Mixed hyperlipidemia Problem Active [facility] Rheumatoid arthritis Rheumatoid arthritis Problem Active [facility] History of Hordeolum of right lower eyelid History of Hordeolum of right lower eyelid Problem Resolved [facility] History of Otitis media, serous, acute, without ruptur e, left History of Otitis media, serous, acute, without rupture, left Problem Resolved [facility] Encounter for monitoring of hydroxychloroquine therapy Encounter for monitoring of hydroxychloroquine therapy Problem Active [facility] Pain of paraspinal muscle Pain of paraspinal muscle Problem Active [facility] History of breast pain History of breast pain Problem Resolved [facility] History of common cold History of common cold Problem Resolved [facility] History of cystitis History of cystitis Problem Resolved [facility] History of unsteady gait History of unsteady gait Problem Resolved [facility] History of pneumonia History of pneumonia Problem Resolved [facility] History of sinusitis History of sinusitis Problem Resolved [facility] History of urinary frequency History of urinary frequency Problem Re solved [facility] Chronic constipation Chronic constipation Problem Active [facility] Polypharmacy Polypharmacy Problem Active [facility] Numbness and tingling in both hands Numbness and tingling in bot h hands Problem Active [facility] Medial epicondylitis, left Medial epicondylitis, left Problem Active [facility] Pes planus of both feet Pes planus of both feet Problem Active [facility] Plantar fasciitis, right Plantar fasciitis, right Problem Active [facility] Chronic left shoulder pain Chronic left shoulder pain Problem Active [facility] 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 Pro blem Active [facility] Mild cognitive impairment Mild cognitive impairment Problem Active [facility] Adjustment disorder with mixed anxiety and depressed m ood Adjustment disorder with mixed anxiety and depressed mood Problem Active [facility] Encounter for diabetic foot exam Encounter for diabetic foot exa m Problem Active [facility] Encounter for Medicare annual wellness exam Encounter for Medicare annual wellness exam Problem Active [facility] Chronic pain of right ankle Chronic pain of right ankle Problem Active [facility] Greater trochanteric bursitis of right hip Greater tro chanteric bursitis of right hip Problem Active [facility] Macrocytosis Macrocytosis Problem Active [facility] Dry skin Dry skin Problem Active [facility] Allergic conjunctivitis Allergic conjunctivitis Problem Active [facility] Acute bronchitis, unspecified organism Acute bronchitis, uns pecified organism Problem Active [facility] Lower respiratory infection Lower respiratory infection Problem Active [facility] Acute URI Acute URI Problem Active [facility] Age-related osteoporosis without current pathological fracture Age-related osteoporosis without current pathological fracture 02/10/2019 AL[facility] [place], [facility] [place] Problem 2019-02-10 11: 45:37 Mayo Lazcano Encounter for therapeutic drug level monitoring Encounter for therapeutic drug level monitoring 02/10/2019 [place] Problem 2019-02-10 11:45:37 Mayo Lazcano Unspecified acute lower respiratory infection Unspecified acute lower respiratory infection 02/10/2019 [place] Problem 2019-02-10 11:45:37 Mayo Lazcano Limb Pain Limb Pain Active 01/14/2014 [facility] Problem Active 2014-01-14 14:51:33 Mayo Lazcano Sciatica Scia wang Active 01/14/2014 [facility] Problem Active 2014-01-14 14:51:33 Mayo Lazcano Hypothyroidism Hypo thyroidism Active 01/14/2014 [facility] Problem Active 2014-01-14 14:51:33 M ricardo Lazcano Benign Essential Hypertension Benign Essential Hypertension Active 01/14/2014 [facility] Problem Active 2014-01-14 14:51:33 Mayo Lazcano Depression With Anxiety Depr ession With Anxiety Active 01/14/2014 [facility] Problem Active 2014-01-14 14:51: 33 Mayo Lazcano Allergic Rhinitis Kenny rgic Rhinitis Active 01/14/2014 [facility] Problem Active 2014-01-14 14:51:33 M emorihimanshu Lazcano Asthma Asth ma Active 01/14/2014 [facility] Problem Active 2014-01-14 14:51:33 Da Lazcano Type 2 Diabetes Mellitus - Uncomplicated, Controlled Type 2 Diabetes Mellitus - Uncomplicated, Controlled Active 01/14/2014 [facility] Problem Active 2014-01-14 14:51:33 M emorihimanshu Lazcano Vitamin B12 Deficiency Jolly min B12 Deficiency Active 01/14/2014 [facility] Problem Active 2014-01-14 14:51:33 Mayo Lazcano Herpes Simplex Type I Herp es Simplex Type I Active 09/18/2012 [facility] Problem Active 2012-09-18 19:50:23 Mayo Lazcano Nontoxic Solitary Thyroid Nodule Nontoxic Solitary Thyroid Nodule Active 08/21/2013 [facility] Problem Active 2013-08-21 20:48:32 Mayo Lazcano Vomiting (Symptom) Vomi ting (Symptom) Active 11/17/2013 [facility] Problem Active 2013-11-17 13:51:30 Mayo Lazcano Vaccines Prophylactic Need Against Influenza Vaccines Prophylactic Need Against Influenza Active 10/29/2013 [facility] Problem Active 2013-10-29 16:32:26 [facility] [place] Anemia Anem ia Active 01/14/2014 [facility] Problem Active 2014-01-14 14:51:33 [facility] [place] Pain In Flank Pain In Flank Active 01/14/2014 [facility] Problem Active 2014-01-14 14:51:33 M emorihimanshu Lazcano Urinary Tract Infection Urin emilie Tract Infection Active 11/17/2013 [facility] Problem Active 2013-11-17 13:51: 30 Mayo Lazcano Osteoarthritis involving multiple joints on both sides of body Osteoarthritis involving multiple joints on both sides of body Active Problem 04/23/2019 Beth Najam Problem Active 2019-04-23 02:45:21 Mayo Lazcano Rheumatoid arthritis of multiple sites w ithout organ or system involvement with positive rheumatoid factor Rheumatoid arthr itis of multiple sites without organ or system involvement with positive rheumatoid factor Active Problem 04/23/2019 Bethngoc Zaragozam Problem Active 2019-04-23 02:45:21 Mayo Lazcano High risk medication use High risk medication use Active Diagnosis 04/10/2019 Beth Najam Diagnosis Active 2019-04-10 02 :45:33 Mayo Lazcano Cervicalgia Cerv icalgia Active Diagnosis 04/10/2019 Beth Najam Diagnosis Active 2019-04-10 02:45:33 Mayo Lazcano Pain, joint, multiple sites Pa in, joint, multiple sites Active Diagnosis 04/10/2019 Beth Najam Diagnosis Active 2019-04-10 02:45:33 Mayo Lazcano Counseling NOS Coun seling NOS Active Diagnosis 04/10/2019 Beth Najam Diagnosis Active 2019-04-10 02:45:33 Mayo Lazcano Rheumatoid arthritis, unspecified Rheumatoid arthritis, unspecified 07/30/2018 02/10/2019 AIDAN [place] Problem 2018-07-30 06:06:11 2019-02-10 11:45:37 2019-02-10 11:45:37 Mayo Lazcano Asymptomatic menopausal state Asymptomatic menopausal state 04/23/2018 11/03/2018 AIDAN [place] Problem 2017 04:06:26 2018-11-03 14:58:43 2018-11-03 14:58:43 Mayo Lazcano Allergies, Adverse Reactions, Alerts Allergy Name Allergy Type Status Severity Reaction(s) Onset Date Inacti ve Date Treating Clinician Comments Source Penicillin Penicillin Active Info Not Available 2019-04-09 00:00:0 0 Mayo Lazcano Penicillins drug allergy Active [facility] Adhesive Tape allergy to substance Active [facility] Penicillins Penicillins Active [facility] [place] Family History Family Member Diagnosis Comments Start Date Stop Date Source Unknown Family Member Family history of Osteoarthritis Family History [facility] Unknown Family Member Family history of Congestive Heart Failure Family History [facility] Unknown Family Member Family history of Diabetes Mellitus Family Hist ory [facility] Unknown Family Member Family History 2013-04-29 06:16:24 2 06:16:24 Mayo Lazcano natural son Family history of leukemia [facility] cousin Family history of cerebrovascular accident (CVA) [facility] cousin Family history of hypertension [facility] Mother Family history of rheumatic fever [facility] Father Family history of Congestive Heart Failure [facility] Brother Family history of Diabetes Mellitus [facility] Social History Social Habit Start Date Stop Date Quantity Comments Source Sex Assigned At [facility] Exposure to SARS-CoV-2 (event) Not sure [place] [facility] Social History 2014-01-14 14:51:33 2014-01-14 14:51:33 Mayo Lazcano Smoking Status Start Date Stop Date Source Never smoker [facility] Medications Ordered Medication Name Filled Medication Name Start Date Stop Da te Current Medication? Ordering Clinician Indication Dosage Frequency Signature (SIG) Comments Components Source Hydroxychloroquine Sulfate 2019-05-17 00:00:00 Yes Maciej Zaragozam 1.5 tabs Mayo Lazcano Folic Acid 2019-05-17 00:00:00 Yes Beth Zaragozam 1 tablet Mayo Lazcano Tramadol HCl 2019-04-17 00:00:00 Yes Beth Najam 1 tablet as needed [facility] Metformin HCl 2019-04-10 02:45:33 Yes Beth Najam 1 tablet with a meal [facility] Lantus SoloStar 2019-04-10 02:45:33 Yes Beth Najam as directed [facility] Hydroxychloroquine Sulfate 2019-04-10 02:45:33 Yes Sabee n Najam 1.5 tabs [facility] Cetirizine HCl 2019-04-10 02:45:33 Yes Beth Najam 1 tablet [facility] Atorvastatin Calcium 2019-04-10 02:45:33 Yes Beth Najam 1 tablet [facility] Metronidazole 2019-04-10 02:45:33 Yes Beth Najam 1 application to affected area [facility] Farxiga 2019-04-10 02:45:33 Yes Beth Najam 1 ta blet [facility] Tramadol HCl 2019-04-10 02:45:33 Yes Beth Najam 1 tablet as needed [facility] Stool Softener 2019-04-10 02:45:33 Yes Beth Najam 1 capsule as needed [facility] Restasis 2019-04-10 02:45:33 Yes Beth Najam 1 drop into affected eye [facility] Folic Acid 2019-04-10 02:45:33 Yes Beth Najam 1 tablet [facility] Advair Diskus 2019-04-10 02:45:33 Yes Beth Najam 1 puff [facility] Ipratropium-Albuterol 2019-04-10 02:45:33 Yes Beth Najam 1 puff [facility] Losartan Potassium 2019-04-10 02:45:33 Yes Beth Najam 1 tablet [facility] Methotrexate 2019-04-10 02:45:33 Yes Beth Najam 8 tabs [facility] Enbrel Mini 2019-04-09 00:00:00 Yes Beth Najam 50mg [facility] OneTouch Delica Lancets 33G OneTouch Delica Lancets 33G 2018-11-12 11:20:35 Yes HARIKA HAYES M.D. USE TO TEST BLOOD GLUCOSE ONCE DAILY [facility] OneTouch Verio In Vitro Strip OneTouch Verio In Vitro Strip 2018 11:20:14 Yes HARIKA HAYES M.D. USE TO TEST BLOOD GLUCOSE ONCE DAILY (DX:E11.9) [facility] Gabapentin 300 MG Oral Capsule Gabapentin 300 MG Oral Capsul e 2018-10-17 09:56:03 Yes HARIKA HAYES M.D. TAKE ONE CAPSULE BY MOUTH AT BEDTIMEneeds office visit [facility] Levothyroxine Sodium 112 MCG Oral Tablet Levothyroxine Sodium 112 MCG Oral Tablet 2018-09-30 13:10:41 Yes HARIKA HAYES M.D. 1 QD TAKE ONE TABLET BY MOUTH DAILY [facility] traMADol HCl - 50 MG Oral Tablet traMADol HCl - 50 MG Oral T ablet 2018-09-30 13:09:24 Yes HARIKA HAYES M.D. TAKE ONE TABLET BY MOUTH EVERY 12 HOURS NEEDED [facility] Benzonatate 100 MG Oral Capsule Benzonatate 100 MG Oral Caps ule 2018-09-19 12:40:42 Yes SIDNEY Roblero TAKE ONE TO TWO CAPSULES BY MOUTH EVERY 8 HOURS NEEDED FOR COUGH [facility] Losartan Potassium-HCTZ 100-25 MG Oral Tablet Losartan Potassium-HCTZ 100-25 MG Oral Tablet 2018-09-13 12:39:43 Yes HARIKA HAYES M.D. 1 QD TAKE 1 TABLET Daily NEEDS OFFICE VISIT [facility] Ipratropium [place] 0.03 % Nasal Solution Ipratropium [place] 0.03 % Nasal Solution 2018-08-31 00:00:00 Yes SIDNEY ROCHA PCharuACharu USE 2 SPRAYS IN EACH NOSTRIL 3 TIMES DAILY NEEDED FOR NASAL CONGESTION [facility] BD Pen Needle Short U/F 31G X 8 MM BD Pen Needle Short U/F 3 1G X 8 MM 2018-08-26 07:53:59 Yes ISAIAS MARQUEZ M.D. use once a day [facility] Atorvastatin Calcium 10 MG Oral Tablet Atorvastatin Calcium 10 MG Oral Tablet 2018-08-05 13:18:30 Yes ISAIAS MARQUEZ M.D. TAKE ONE TABLET BY MOUTH EVERY NIGHT AT BEDTIME FOR CHOLESTEROL [facility] Fluticasone Propionate 50 MCG/ACT Nasal Suspension Flu ticasone Propionate 50 MCG/ACT Nasal Suspension 2018-07-22 17:02:54 Yes HARIKA Spivey M.D. Q0.5D USE 1 SPRAY IN EACH NOSTRIL TWO TIMES A DAY [facility] Lantus SoloStar 100 UNIT/ML Subcutaneous Solution Pen- injector Lantus SoloStar 100 UNIT/ML Subcutaneous Solution Pen-injector 2018-06-13 11:20:36 Yes ISAIAS MARQUEZ M.D. INJECT 22 UNITS UNDER THE SKIN EVERY NIGHT [facility] Advair Diskus 100-50 MCG/DOSE Inhalation Aerosol Powde r Breath Activated Advair Diskus 100-50 MCG/DOSE Inhalation Aerosol Powder Breath Activated 2018-05-21 13:28:04 Yes HARIKA HAYES M.D. 1 Q0.5D INHALE 1 PUFFS TWICE DAILY [facility] Farxiga 10 MG Oral Tablet Farxiga 10 MG Oral Tablet 2018-05-07 00:00: 00 Yes ISAIAS MARQUEZ M.D. TAKE 1 TABLET BY MOUTH EVERY MORNING with breakfast for blood sugar. Drink plenty of water. [facility] Ammonium Lactate 12 % External Cream Ammonium Lactate 12 % E xternal Cream 2018-04-30 00:00:00 Yes ISAIAS MARQUEZ M.D. Q 0.5D APPLY AND RUB IN A THIN FILM TO AFFECTED AREAS TWICE DAILY.(AM AND PM). [facility] Tdap (Adacel) Tdap (Adacel) 2018-03-11 00:00:00 Yes HARIKA RANDLOPH M.D. INJECT 0.5 ML Intramuscular [facility] Shingrix 50 MCG Intramuscular Suspension Reconstituted Shingrix 50 MCG Intramuscular Suspension Reconstituted 2018-03-11 00:00:00 Yes HARIKA HAYES M.D. 1 INJECT 1 ML ONCE [facility] Alendronate Sodium 70 MG Oral Tablet Alendronate Sodium 70 M G Oral Tablet 2018-02-26 15:16:43 Yes ANUJ LOZA M.D. TAKE 1 TABLET BY MOUTH ONCE WEEKLY 30 TO 60 MINUTES BEFORE BREAKFAST, ON AN EMPTY STOMACH. DO NOT LIE DOWN AFTER TAKING MEDICATION. [facility] valACYclovir HCl - 500 MG Oral Tablet valACYclovir HCl - 500 MG Oral Tablet 2017-12-17 00:00:00 Yes SAMUEL PALMA N.P. 1 Q0.5D TAKE 1 TABLET Twice daily take at the first sign of outbreak [facility] Mupirocin 2 % External Ointment Mupirocin 2 % External Ointm ent 2017-12-13 00:00:00 Yes SAMUEL PALMA N.PCharu Q0.5D APPLY SPARINGLY TO AFFECTED AREA(S) TWICE DAILY [facility] Diclofenac Sodium 1 % Transdermal Gel Diclofenac Sodium 1 % Transdermal Gel 2017-11-26 00:00:00 Yes ANUJ LOZA M.D. QD APPLY TO UPPER EXTREMITIES, 2 GM OF GEL TO AFFECTED AREA 4 TIMES DAILY. DO NOT APPLY MORE THAN 8 GM DAILY TO ANY ONE AFFECTED JOINT. [facility] Wrist Splint Wrist Splint 2017-10-22 00:00:00 Yes ANUJ MCKEON M.D. Firm neutral position wrist splints for each wrist, to be wo rn at night only. [facility] tiZANidine HCl - 4 MG Oral Tablet tiZANidine HCl - 4 MG Oral Tablet 2017-09-15 00:00:00 Yes DEBORA PEREIRA M.D. Q0.3333D T WYATT 1 TABLET 3 TIMES DAILY NEEDED. [facility] Hydroxychloroquine Sulfate 200 MG Oral Tablet Hydroxyc hloroquine Sulfate 200 MG Oral Tablet 2017-06-25 00:00:00 Yes ANUJ LOZA M.D. TAKE ONE AND ONE-HALF TABLET BY MOUTH DAILY ONLY AFTER APPROVAL OF SAMPLE DYE MIXER [facility] TRUEplus Lancets 28G TRUEplus Lancets 28G 2017-06-05 12:11:07 Yes ISAIAS MARQUEZ M.D. USE TO TEST BLOOD GLUCOSE ONCE DAILY [facility] Methotrexate 2.5 MG Oral Tablet Methotrexate 2.5 MG Oral Tab let 2017-03-12 00:00:00 Yes ANUJ LOZA M.D. 8 TAKE 8 TABLET S BY MOUTH WEEKLY [facility] Accu-Chek Karine Plus In Vitro Strip Accu-Chek Karine Plus In Vitro Strip 2017-01-22 16:13:37 Yes DEBORA PEREIRA M.D. USE TO TEST BLOOD GLUCOSE ONCE DAILY [facility] Nebulizer/Tubing/Mouthpiece KIT Nebulizer/Tubing/Mouthpiece KIT 2017-01-03 00:00:00 Yes HARIKA HAYES M.D. USE DI LARRY. DX:J45.909, J2.8 [facility] Nystatin [id number] UNIT/GM External Cream Nystatin [id number] UNIT/ GM External Cream 2016-06-19 00:00:00 Yes HARIKA HAYES M.D. Q0.5D APPLY AND RUB IN A THIN FILM TO AFFECTED AREAS TWICE DAILY.(AM AND PM). [facility] metFORMIN HCl ER 500 MG Oral Tablet Extended Release 2 4 Hour metFORMIN HCl ER 500 MG Oral Tablet Extended Release 24 Hour 2016-06-15 00:00:00 Yes ISAIAS MARQUEZ M.D. TAKE ONE TABLET BY MOUTH TWICE A DAY [facility] Multiple Vitamin TABS Multiple Vitamin TABS 2016-03-24 00:00:00 Ye s 1 QD TAKE 1 TABLET DAILY. [facility] Folic Acid 1 MG Oral Tablet Folic Acid 1 MG Oral Tablet 2016-03-24 00:00:00 Yes ANUJ LOZA M.D. 1 QD TAKE 2 TABLETS DAILY [facility] Albuterol Sulfate 1.25 MG/3ML Inhalation Nebulization Solution Albuterol Sulfate 1.25 MG/3ML Inhalation Nebulization Solution 2015-10-04 00:00:00 Yes HARIKA HAYES M.D. USE 1 UNIT DOSE IN NEBULIZER EVERY 4 TO 6 HOURS NEEDED. [facility] Acyclovir 5 % External Ointment Acyclovir 5 % External Ointm ent 2015-01-25 00:00:00 Yes SAMUEL PALMA N.P. Q0.3333D APPLY A SMALL AMOUNT 3 TIMES DAILY DIRECTED. [facility] Caltrate 600+D Plus TABS 2014-01-14 14:51:33 Yes (Active) Mayo Lazcano Probiotic CAPS 2014-01-14 14:51:33 Yes (Act micah) Mayo Lazcano Blood Pressure Monitor KIT 2014-01-09 05:00:00 Yes ; Start Date: 01/09/2014 (Active) Mayo Lazcano Blood Pressure Monitor KIT Blood Pressure Monitor KIT 2014-01-09 00:0 0:00 Yes HARIKA HAYES M.D. use as needed to check blood pressure [facility] Azithromycin 250 MG Oral Tablet 2013-12-25 05:00:00 Yes ; Start Date: 12/25/2013; End Date: (Active) Mayo Lazcano Betamethasone Valerate 0.1 % External Cream 2013-12-19 05:00:00 Yes ; Start Date: 12/19/2013; End Date: (Active) Mayo Lazcano Clotrimazole Anti-Fungal 1 % External Cream 2013-12-19 05:00:00 Yes ; Start Date: 12/19/2013; End Date: (Active) Mayo Lazcano Ciprofloxacin HCl 500 MG Oral Tablet 2013-09-22 06:00:00 Ye s ; Start Date: 09/22/2013; End Date: (Active) Mayo Lazcano Naproxen 500 MG Oral Tablet 2013-09-22 06:00:00 Yes ; Start Date: 09/22/2013; End Date: (Active) Mayo Lazcano Phenylephrine HCl 10 MG Oral Tablet 2013-08-21 20:48:32 Yes (Active) Mayo Lzacano Singulair 10 MG Oral Tablet 2013-07-25 19:02:41 Yes (Active) Mayo Lazcano Flexeril 5 MG TABS 2013-07-25 19:02:41 Yes (Active) Mayo Lazcano Aleve TABS 2013-07-25 19:02:41 Yes (Active) Mayo Lazcano Levothyroxine Sodium 112 MCG Oral Tablet 2013-07-21 06:00:00 Yes ; Start Date: 07/21/2013; End Date: (Active) Mayo Lazcano Cyclobenzaprine HCl 5 MG Oral Tablet 2013-05-29 05:00:00 Ye s ; Start Date: 05/29/2013; End Date: (Active) [facility] Nebulizer Compressor KIT 2013-05-27 05:00:00 Yes ; Start Date: 05/27/2013 (Active) [facility] Nebulizer Compressor KIT Nebulizer Compressor KIT 2013-05-27 00:00:00 Yes HARIKA HAYES M.D. USE DIRECTED. [facility] Azithromycin 250 MG Oral Tablet 2013-05-26 05:00:00 Yes ; Start Date: 05/26/2013; End Date: (Active) [facility] [place] Levalbuterol HCl 1.25 MG/0.5ML Inhalation Nebulization Solut ion 2013-05-26 05:00:00 Yes ; Start Date: 05/26/2013 (Act micah) Mayo Lazcano Levothyroxine Sodium 100 MCG Oral Tablet 2013-05-19 18:47:45 Yes (Active) Mayo Lazcano PARoxetine HCl 20 MG Oral Tablet 2013-05-07 02:36:09 Yes (Active) Mayo Lazcano Lisinopril-Hydrochlorothiazide 20-12.5 MG Oral Tablet 2012-10-03 19:14:03 Yes (Active) Mayo Vitale nn Naproxen 500 MG Oral Tablet 2012-10-03 19:14:03 Yes (Active) Mayo Lazcano Symbicort 160-4.5 MCG/ACT Inhalation Aerosol 2012-09-30 06:00:00 Yes ; Start Date: 09/30/2012 (Active) Mayo Lazcano GlyBURIDE-MetFORMIN 5-500 MG Oral Tablet 2012-09-30 06:00:00 Yes ; Start Date: 09/30/2012; End Date: (Active) Mayo Lazcano Losartan Potassium-HCTZ 50-12.5 MG Oral Tablet 2012-09-30 06:00: 00 Yes ; Start Date: 09/30/2012; End Date: (Active ) Mayo Lazcano TraMADol HCl 50 MG Oral Tablet 2012-09-30 06:00:00 Yes ; Start Date: 09/30/2012; End Date: (Active) Mayo Lazcano Cyanocobalamin 1000 MCG/ML Injection Solution 2012-09-30 06:00:0 0 Yes ; Start Date: 09/30/2012; End Date: (Active) Mayo Lazcano Symbicort 160-4.5 MCG/ACT Inhalation Aerosol 2012-09-30 06:00:00 Yes ; Start Date: 09/30/2012 (Active) Mayo Lazcano Losartan Potassium-HCTZ 100-25 MG Oral Tablet 2012-09-30 06:00:0 0 Yes ; Start Date: 09/30/2012; End Date: (Active) Mayo Lazcano Gabapentin 100 MG Oral Capsule 2012-09-18 06:00:00 Yes ; Start Date: 09/18/2012; End Date: (Active) Mayo Lazcano ValACYclovir HCl 1 GM Oral Tablet 2012-09-17 06:00:00 Yes ; Start Date: 09/17/2012; End Date: (Active) Mayo Lazcano Abreva 10 % External Cream 2012-09-17 06:00:00 Yes ; Start Date: 09/17/2012; End Date: (Active) Mayo Lazcano Levothyroxine Sodium 112 MCG Oral Tablet Yes ; Start Date: ; End Date: (Active) Myao Lazcano raNITIdine HCl - 150 MG Oral Capsule raNITIdine HCl - 150 MG Oral C apsule Yes TAKE 1 CAPSULE AT BEDTIME. [facility] Restasis 0.05 % Ophthalmic Emulsion Restasis 0.05 % Ophthalmic Emulsi on Yes [facility] Acetaminophen 500 MG Oral Tablet Acetaminophen 500 MG Oral Tablet Yes 1 Q0.3333D TAKE 1 TABLET 3 TIMES DAILY [facility] Clindamycin HCl - 150 MG Oral Capsule Clindamycin HCl - 150 MG Oral Capsule Yes 4 CAPS 1 HR prior to dentist visit. [facility] Vitamin B12 TR 1000 MCG Oral Tablet Extended Release V itamin B12 TR 1000 MCG Oral Tablet Extended Release Yes [facility] Cetirizine HCl - 5 MG Oral Tablet Cetirizine HCl - 5 MG Oral Tablet Yes HARIKA HAYES M.D. 1 TAKE 1 TABLET DAILY CAMILO [facility] GenTeal GEL GenTeal GEL Yes APPLY STRIP PRN [facility] Citrucel TABS Citrucel TABS Yes [facility] Systane Balance SOLN Systane Balance SOLN Yes 1 drop BID PRN OU [facility] Turmeric Curcumin Oral Capsule Turmeric Curcumin Oral Capsule Yes 1 pill daily [facility] metroNIDAZOLE 0.75 % External Gel metroNIDAZOLE 0.75 % External Gel Yes APPLY GM PRN [facility] Immunizations Ordered Immunization Name Filled Immunization Name Date Status Comments Source Fluzone High-Dose 0.5 ML Intramuscular Suspension Prefilled Syringe 2018-05-18 11:08:00 Completed [facility] Pneumovax 23 25 MCG/0.5ML Injection Injectable 2017-06 15:06:00 Completed [facility] Fluzone High-Dose 0.5 ML Intramuscular Suspension Prefilled Syringe 2017-06-01 11:59:00 Completed [facility] Fluzone High-Dose SUSP 2016-06-15 10:08:00 Completed [facility] Fluzone Quadrivalent 0.5 ML Intramuscular Suspension 2015-08-16 17:04:00 Completed [facility] Prevnar 13 Intramuscular Suspension 2015-05-10 11:33:00 Co mpleted [facility] Influenza 2014-05-25 14:24:00 [facility] 2013-05-19 13:35:00 [facility] Vital Signs Vital Name Observation Time Observation Value Comments Source Height 2019-04-09 15:45:00 [facility] Diastolic (mm Hg) 2019-04-09 15:45:00 [facility] [place] Systolic (mm Hg) 2019-04-09 15:45:00 Matthew [facility] [place] Weight 2019-04-09 15:45:00 [facility] Height 2019-03-18 15:00:00 [facility] Diastolic (mm Hg) 2019-03-18 15:00:00 Mem o[facility] [place] Systolic (mm Hg) 2019-03-18 15:00:00 [facility] [place] Weight 2019-03-18 15:00:00 [facility] BP Systolic 2018-09-16 11:30:00 122 mm[Hg] Location: LUE; Positi on: Sitting [facility] BP Diastolic 2018-09-16 11:30:00 59 mm[Hg] Location: LUE; Positi on: Sitting [facility] Height 2018-09-16 11:30:00 64 [in_us] [facility] Weight 2018-09-16 11:30:00 191 [lb_av] [facility] Body Mass Index Calculated 2018-09-16 11:30:00 32.79 kg/m2 [facility] Temperature 2018-09-16 11:30:00 97.4 [degF] Method: Temporal [facility] Respiration Rate 2018-09-16 11:30:00 16 /min [facility] Heart Rate 2018-09-16 11:30:00 74 /min [facility] BP Systolic 2018-08-31 11:44:00 126 mm[Hg] Location: LUE; Positi on: Sitting [facility] BP Diastolic 2018-08-31 11:44:00 65 mm[Hg] Location: LUE; Positi on: Sitting [facility] Height 2018-08-31 11:44:00 64 [in_us] [facility] Weight 2018-08-31 11:44:00 190 [lb_av] [facility] Body Mass Index Calculated 2018-08-31 11:44:00 32.61 kg/m2 [facility] Temperature 2018-08-31 11:44:00 97.6 [degF] Method: Temporal [facility] Respiration Rate 2018-08-31 11:44:00 16 /min [facility] Heart Rate 2018-08-31 11:44:00 71 /min [facility] [place] [facility] BP Systolic 2018-07-22 15:00:00 112 mm[Hg] Location: JASPREET; Positi on: Sitting [facility] BP Diastolic 2018-07-22 15:00:00 64 mm[Hg] Location: JASPREET; Positi on: Sitting [facility] Weight 2018-07-22 15:00:00 192 [lb_av] [facility] [place] [facility] Body Mass Index Calculated 2018-07-22 15:00:00 32.96 kg/m2 [facility] Temperature 2018-07-22 15:00:00 97.7 Юлия Method: Oral [facility] [place] [facility] Heart Rate 2018-07-22 15:00:00 75 /min [facility] Respiration Rate 2018-07-22 15:00:00 17 /min [facility] BP Systolic 2018-07-19 15:34:00 122 mm[Hg] Location: FREDERIC Positi on: Sitting [facility] BP Diastolic 2018-07-19 15:34:00 77 mm[Hg] Location: DAMIAN; Positi on: Sitting [facility] Weight 2018-07-19 15:34:00 190.5 [lb_av] [facility] Body Mass Index Calculated 2018-07-19 15:34:00 32.7 kg/m2 [facility] Temperature 2018-07-19 15:34:00 97.2 Юлия Method: Temporal [facility] Heart Rate 2018-07-19 15:34:00 62 /min Location: L Brachial Artery; [facility] Respiration Rate 2018-07-19 15:34:00 16 /min [facility] Height 2018-07-19 15:34:00 64 [in_us] [facility] BP Systolic 2018-07-15 10:20:00 123 mm[Hg] Location: LUE; Positi on: Sitting [facility] BP Diastolic 2018-07-15 10:20:00 75 mm[Hg] Location: LUE; Positi on: Sitting [facility] Weight 2018-07-15 10:20:00 185 [lb_av] [facility] Body Mass Index Calculated 2018-07-15 10:20:00 31.76 kg/m2 [facility] Temperature 2018-07-15 10:20:00 98 Юлия Method: Temporal [facility] Heart Rate 2018-07-15 10:20:00 82 /min [facility] Respiration Rate 2018-07-15 10:20:00 16 /min [facility] Height 2018-07-15 10:20:00 64 [in_us] [facility] BP Systolic 2018-05-24 13:44:00 111 mm[Hg] Location: LUE; Positi on: Sitting [facility] BP Diastolic 2018-05-24 13:44:00 70 mm[Hg] Location: LUE; Positi on: Sitting [facility] Height 2018-05-24 13:44:00 64 [in_us] [facility] Weight 2018-05-24 13:44:00 193.125 [lb_av] [facility] Body Mass Index Calculated 2018-05-24 13:44:00 33.15 kg/m2 [facility] Temperature 2018-05-24 13:44:00 97.8 Юлия Method: Temporal [facility] Heart Rate 2018-05-24 13:44:00 77 /min [facility] Respiration Rate 2018-05-24 13:44:00 16 /min [facility] O2 SAT 2018-05-24 13:44:00 96 % [facility] BP Systolic 2018-05-18 10:32:00 120 mm[Hg] Location: LUE; Positi on: Sitting [facility] BP Diastolic 2018-05-18 10:32:00 68 mm[Hg] Location: LUE; Positi on: Sitting [facility] Height 2018-05-18 10:32:00 64 [in_us] [facility] Weight 2018-05-18 10:32:00 192.25 [lb_av] [facility] Body Mass Index Calculated 2018-05-18 10:32:00 33 kg/m2 [facility] Temperature 2018-05-18 10:32:00 97 Юлия Method: Oral [facility] [place] [facility] Heart Rate 2018-05-18 10:32:00 85 /min [facility] BP Systolic 2018-04-30 15:12:00 110 mm[Hg] Location: LUE; Positi on: Sitting [facility] BP Diastolic 2018-04-30 15:12:00 71 mm[Hg] Location: LUE; Positi on: Sitting [facility] Height 2018-04-30 15:12:00 64 [in_us] [facility] [place] [facility] Weight 2018-04-30 15:12:00 189.4 [lb_av] [facility] Body Mass Index Calculated 2018-04-30 15:12:00 32.51 kg/m2 [facility] Heart Rate 2018-04-30 15:12:00 65 /min [facility] BP Systolic 2018-03-25 15:17:00 112 mm[Hg] Location: RUE; Positi on: Sitting [facility] BP Diastolic 2018-03-25 15:17:00 69 mm[Hg] Location: RUE; Positi on: Sitting [facility] Weight 2018-03-25 15:17:00 192 [lb_av] [facility] Body Mass Index Calculated 2018-03-25 15:17:00 32.96 kg/m2 [facility] Temperature 2018-03-25 15:17:00 98.1 Юлия Method: Oral [facility] Heart Rate 2018-03-25 15:17:00 62 /min [facility] Respiration Rate 2018-03-25 15:17:00 17 /min [facility] BP Systolic 2018-03-11 14:02:00 91 mm[Hg] Location: LUE; Positi on: Sitting [facility] BP Diastolic 2018-03-11 14:02:00 58 mm[Hg] Location: LUE; Positi on: Sitting [facility] Height 2018-03-11 14:02:00 64 [in_us] [facility] Weight 2018-03-11 14:02:00 192.5 [lb_av] [facility] Body Mass Index Calculated 2018-03-11 14:02:00 33.04 kg/m2 [facility] Temperature 2018-03-11 14:02:00 97.8 Юлия Method: Temporal [facility] Heart Rate 2018-03-11 14:02:00 74 /min [facility] [place] [facility] Respiration Rate 2018-03-11 14:02:00 16 /min [facility] BP Systolic 2018-01-14 08:51:00 113 mm[Hg] Location: ROZE; Positi on: Sitting [facility] BP Diastolic 2018-01-14 08:51:00 71 mm[Hg] Location: DAMIAN; Positi on: Sitting [facility] Height 2018-01-14 08:51:00 64 [in_us] [facility] Weight 2018-01-14 08:51:00 192.3125 [lb_av] [facility] Body Mass Index Calculated 2018-01-14 08:51:00 33.01 kg/m2 [facility] Heart Rate 2018-01-14 08:51:00 52 /min [facility] [place] [facility] Respiration Rate 2018-01-14 08:51:00 16 /min [facility] BP Systolic 2017-12-17 14:54:00 128 mm[Hg] Location: DAMIAN; Positi on: Sitting [facility] BP Diastolic 2017-12-17 14:54:00 76 mm[Hg] Location: DAMIAN; Positi on: Sitting [facility] Height 2017-12-17 14:54:00 64 [in_us] [facility] [place] [facility] Weight 2017-12-17 14:54:00 193.375 [lb_av] [facility] Body Mass Index Calculated 2017-12-17 14:54:00 33.19 kg/m2 [facility] Temperature 2017-12-17 14:54:00 97.2 Юлия Method: Temporal [facility] Respiration Rate 2017-12-17 14:54:00 15 /min [facility] Heart Rate 2017-12-17 14:54:00 61 /min [facility] BP Systolic 2017-12-13 14:49:00 109 mm[Hg] Location: LUE; Positi on: Sitting [facility] BP Diastolic 2017-12-13 14:49:00 60 mm[Hg] Location: LUE; Positi on: Sitting [facility] Height 2017-12-13 14:49:00 64 [in_us] [facility] Weight 2017-12-13 14:49:00 190 [lb_av] [facility] Body Mass Index Calculated 2017-12-13 14:49:00 32.61 kg/m2 [facility] Temperature 2017-12-13 14:49:00 97.2 Юлия Method: Temporal [facility] Respiration Rate 2017-12-13 14:49:00 14 /min [facility] Heart Rate 2017-12-13 14:49:00 74 /min [facility] BP Systolic 2017-11-26 11:07:00 108 mm[Hg] Location: RUE; Positi on: Sitting [facility] BP Diastolic 2017-11-26 11:07:00 62 mm[Hg] Location: RUE; Positi on: Sitting [facility] Weight 2017-11-26 11:07:00 189 [lb_av] [facility] Body Mass Index Calculated 2017-11-26 11:07:00 32.44 kg/m2 [facility] Temperature 2017-11-26 11:07:00 97.9 Юлия Method: Oral [facility] Heart Rate 2017-11-26 11:07:00 73 /min [facility] [place] [facility] Respiration Rate 2017-11-26 11:07:00 16 /min [facility] BP Systolic 2017-10-22 15:19:00 117 mm[Hg] Location: RUE; Positi on: Sitting [facility] BP Diastolic 2017-10-22 15:19:00 70 mm[Hg] Location: RUE; Positi on: Sitting [facility] Weight 2017-10-22 15:19:00 190 [lb_av] [facility] Body Mass Index Calculated 2017-10-22 15:19:00 32.61 kg/m2 [facility] Temperature 2017-10-22 15:19:00 97.9 Юлия Method: Oral [facility] Heart Rate 2017-10-22 15:19:00 70 /min [facility] Respiration Rate 2017-10-22 15:19:00 17 /min [facility] BP Systolic 2017-10-15 14:48:00 126 mm[Hg] Location: LUE; Positi on: Sitting [facility] BP Diastolic 2017-10-15 14:48:00 74 mm[Hg] Location: LUE; Positi on: Sitting [facility] Height 2017-10-15 14:48:00 64 [in_us] [facility] Body Mass Index Calculated 2017-10-15 14:48:00 32.69 kg/m2 [facility] Weight 2017-10-15 14:48:00 190.4375 [lb_av] [facility] Temperature 2017-10-15 14:48:00 97.3 Юлия Method: Temporal [facility] Heart Rate 2017-10-15 14:48:00 60 /min Location: R Radial; [facility] BP Systolic 2017-10-15 08:57:00 115 mm[Hg] Location: ROZE; Positi on: Sitting [facility] BP Diastolic 2017-10-15 08:57:00 73 mm[Hg] Location: LUE; Positi on: Sitting [facility] Height 2017-10-15 08:57:00 64 [in_us] [facility] Weight 2017-10-15 08:57:00 191 [lb_av] [facility] Body Mass Index Calculated 2017-10-15 08:57:00 32.79 kg/m2 [facility] Heart Rate 2017-10-15 08:57:00 61 /min [facility] Respiration Rate 2017-10-15 08:57:00 16 /min [facility] BP Systolic 2017-09-15 09:53:00 117 mm[Hg] Location: LUE; Positi on: Sitting [facility] BP Diastolic 2017-09-15 09:53:00 75 mm[Hg] Location: LUE; Positi on: Sitting [facility] Height 2017-09-15 09:53:00 64 [in_us] [facility] Weight 2017-09-15 09:53:00 187.25 [lb_av] [facility] Body Mass Index Calculated 2017-09-15 09:53:00 32.14 kg/m2 [facility] Temperature 2017-09-15 09:53:00 97.4 Юлия Method: Temporal [facility] Heart Rate 2017-09-15 09:53:00 66 /min Quality: Normal [facility] Respiration Rate 2017-09-15 09:53:00 18 /min Quality: Normal [facility] BP Systolic 2017-09-12 15:51:00 116 mm[Hg] Location: LUE; Positi on: Sitting [facility] BP Diastolic 2017-09-12 15:51:00 70 mm[Hg] Location: LUE; Positi on: Sitting [facility] Weight 2017-09-12 15:51:00 186 [lb_av] [facility] [place] [facility] Body Mass Index Calculated 2017-09-12 15:51:00 31.93 kg/m2 [facility] Temperature 2017-09-12 15:51:00 97.78 Юлия Method: Oral [facility] Heart Rate 2017-09-12 15:51:00 84 /min [facility] [place] [facility] Respiration Rate 2017-09-12 15:51:00 17 /min [facility] BP Systolic 2017-08-27 14:35:00 110 mm[Hg] Location: LUE; Positi on: Sitting [facility] BP Diastolic 2017-08-27 14:35:00 68 mm[Hg] Location: LUE; Positi on: Sitting [facility] Weight 2017-08-27 14:35:00 188 [lb_av] [facility] [place] [facility] Body Mass Index Calculated 2017-08-27 14:35:00 32.27 kg/m2 [facility] Temperature 2017-08-27 14:35:00 97.9 Юлия Method: Oral [facility] Heart Rate 2017-08-27 14:35:00 82 /min [facility] [place] [facility] Respiration Rate 2017-08-27 14:35:00 16 /min [facility] BP Systolic 2017-08-15 14:04:00 120 mm[Hg] Location: LUE; Positi on: Sitting [facility] BP Diastolic 2017-08-15 14:04:00 69 mm[Hg] Location: LUE; Positi on: Sitting [facility] Height 2017-08-15 14:04:00 64 [in_us] [facility] Weight 2017-08-15 14:04:00 187 [lb_av] [facility] [place] [facility] Body Mass Index Calculated 2017-08-15 14:04:00 32.1 kg/m2 [facility] Temperature 2017-08-15 14:04:00 98.1 Юлия Method: Temporal [facility] Respiration Rate 2017-08-15 14:04:00 16 /min [facility] Heart Rate 2017-08-15 14:04:00 72 /min [facility] [place] [facility] BP Systolic 2017-08-01 13:06:00 100 mm[Hg] Location: LUE; Positi on: Sitting [facility] BP Diastolic 2017-08-01 13:06:00 62 mm[Hg] Location: LUE; Positi on: Sitting [facility] [facility] Height 2017-08-01 13:06:00 64 [in_us] [facility] Weight 2017-08-01 13:06:00 185.125 [lb_av] [facility] Body Mass Index Calculated 2017-08-01 13:06:00 31.78 kg/m2 [facility] Temperature 2017-08-01 13:06:00 98.1 Юлия Method: Temporal [facility] Heart Rate 2017-08-01 13:06:00 75 /min [facility] Respiration Rate 2017-08-01 13:06:00 16 /min [facility] BP Systolic 2017-07-20 12:53:00 103 mm[Hg] Location: LUE; Positi on: Sitting [facility] BP Diastolic 2017-07-20 12:53:00 67 mm[Hg] Location: LUE; Positi on: Sitting [facility] Height 2017-07-20 12:53:00 64 [in_us] [facility] Weight 2017-07-20 12:53:00 187.25 [lb_av] [facility] Body Mass Index Calculated 2017-07-20 12:53:00 32.14 kg/m2 [facility] Temperature 2017-07-20 12:53:00 96.9 Юлия Method: Temporal [facility] Heart Rate 2017-07-20 12:53:00 63 /min [facility] Respiration Rate 2017-07-20 12:53:00 15 /min [facility] BP Systolic 2017-07-18 15:40:00 116 mm[Hg] Location: LUE; Positi on: Sitting [facility] BP Diastolic 2017-07-18 15:40:00 69 mm[Hg] Location: LUE; Positi on: Sitting [facility] Height 2017-07-18 15:40:00 64 [in_us] [facility] Weight 2017-07-18 15:40:00 185 [lb_av] [facility] Body Mass Index Calculated 2017-07-18 15:40:00 31.76 kg/m2 [facility] Temperature 2017-07-18 15:40:00 97 Юлия Method: Temporal [facility] Heart Rate 2017-07-18 15:40:00 61 /min [facility] Respiration Rate 2017-07-18 15:40:00 16 /min [facility] BP Systolic 2017-07-09 09:07:00 113 mm[Hg] Location: LUE; Positi on: Sitting [facility] BP Diastolic 2017-07-09 09:07:00 70 mm[Hg] Location: LUE; Positi on: Sitting [facility] Height 2017-07-09 09:07:00 64 [in_us] [facility] Weight 2017-07-09 09:07:00 185.4375 [lb_av] [facility] Body Mass Index Calculated 2017-07-09 09:07:00 31.83 kg/m2 [facility] Heart Rate 2017-07-09 09:07:00 59 /min [facility] Respiration Rate 2017-07-09 09:07:00 16 /min [facility] Procedures Procedure Date / Time Performed Performing Clinician Sour e [O] Streptococcus Test Rapid (In Office) 2018-09-16 00:00:00 [facility] [O] Influenza A and B, Rapid Method (In Office) 2018-09-16 00:00 :00 [facility] [QLH] CBC (INCLUDES DIFF/PLT) 2018-07-22 00:00:00 [facility] [QLH] CMP W/EGFR 2018-07-22 00:00:00 [facility] [[facility]] C-REACTIVE PROTEIN 2018-07-22 00:00:00 [facility] [[facility]] SED RATE BY MODIFIED LAURELREN 2018-07-22 00:00:00 [facility] XRAY Chest 2 views [id number] 2018-07-22 00:00:00 [facility] [QL] TSH, 3RD GENERATION W/REFLEX TO FT4 2018-04-02 00:00:00 [facility] [QL] VITAMIN B12/FOLATE, SERUM PANEL 2018-04-02 00:00:00 [facility] [[facility]] CBC (INCLUDES DIFF/PLT) 2018-03-25 00:00:00 [facility] [[facility]] C-REACTIVE PROTEIN 2018-03-25 00:00:00 [facility] [[facility]] SED RATE BY MODIFIED SMILEY 2018-03-25 00:00:00 [facility] [L] Hepatic Function Panel (7) 2018-03-25 00:00:00 [facility] MA Bone Density DXA Dual Energy [id number] 2018-03-25 00:00:00 [facility] [[facility]] BASIC METABOLIC PANEL W/EGFR 2018-03-11 00:00:00 [facility] MA Digital Mammo Screening Herbie [id number] 2018-03-11 00:00:00 [facility] [QLH] RPR 2017-12-17 00:00:00 [facility] [Q] HIV-1/2 Antigen and Antibodies, Fourth Generation, with Reflexes 2017-12-17 00:00:00 [facility] [QL] HSV 1/2 IGG, HERPESELECT TYPE SPECIFIC AB 2017-12-17 00:00: 00 [facility] [QLH] CULTURE, URINE, ROUTINE 2017-12-17 00:00:00 [facility] [L] Ct Ng TV HSV by JONNATHAN 2017-12-13 00:00:00 [facility] [L] NuSwab BV and Wen, JONNATHAN 2017-12-13 00:00:00 [facility] [QLH] CBC (INCLUDES DIFF/PLT) 2017-11-26 00:00:00 [facility] [[facility]] CMP W/EGFR 2017-11-26 00:00:00 [facility] [[facility]] C-REACTIVE PROTEIN 2017-11-26 00:00:00 [facility]] SED RATE BY MODIFIED SMILEY 2017-11-26 00:00:00 [facility] [[facility]] VITAMIN B12 2017-11-12 00:00:00 [facility] [[facility]] BASIC METABOLIC PANEL W/EGFR 2017-10-25 00:00:00 [facility] [[facility]] VITAMIN B12 2017-10-15 00:00:00 [facility] [[facility]] CBC (INCLUDES DIFF/PLT) 2017-08-27 00:00:00 [facility] [[facility]] CMP W/EGFR 2017-08-27 00:00:00 [facility] [[facility]] C-REACTIVE PROTEIN 2017-08-27 00:00:00 [facility] [[facility]] SED RATE BY MODIFIED SMILEY 2017-08-27 00:00:00 [facility] [[facility]] VITAMIN D, 25-HYDROXY, LC/MS/MS 2017-08-27 00:00:00 [facility] History of Hysterectomy [facility] History [facility]lectomy [facility] of Cataract Surgery [facility] History of Cholecystectomy [facility] History of Thyroid Surgery Total Thyroidectomy [facility] Plan of Care Planned Activity Planned Date Details Comments Source Future Scheduled Test 2020-04-10 00:00:00 INFLUENZA VACCINE [code = INFLUENZA VACCINE] [facility] Test Pending 2018-03-25 00:00:00 MA Bone Density DXA Dual Energy 26553 [code = 31913] [facility] Test Pending 2017-11-26 00:00:00 [QLH] BASIC META BOLIC PANEL W/EGFR [code = [QLH] BASIC METABOLIC PANEL W/EGFR] [facility] Diagnostic Test Pending 2017-11-26 00:00:00 [QLH] BASIC META BOLIC PANEL W/EGFR [code = [QLH] BASIC METABOLIC PANEL W/EGFR] [facility] Diagnostic Test Pending 2017-11-26 00:00:00 [QL] VITAMIN B1 2 [code = [QL] VITAMIN B12] [facility] Scheduled Test 2014-01-14 14:51:33 Plan of Care [code = 1877 6-5] [facility] Scheduled Test 2014-01-02 20:11:28 Plan of Care [code = 1877 6-5] [facility] Scheduled Test 2013-11-17 13:51:30 Plan of Care [code = 1877 6-5] [facility] Scheduled Test 2013-11-14 22:16:13 Plan of Care [code = 1877 6-5] [facility] Scheduled Test 2013-11-12 17:34:03 Plan of Care [code = 1877 6-5] [facility] Scheduled Test 2013-11-11 02:45:42 Plan of Care [code = 1877 6-5] [facility] Scheduled Test 2013-11-07 20:02:24 Plan of Care [code = 1877 6-5] [facility] Scheduled Test 2013-11-04 21:48:28 Plan of Care [code = 1877 6-5] [facility] Scheduled Test 2013-10-08 16:01:07 Plan of Care [code = 1877 6-5] [facility] Scheduled Test 2013-10-07 21:11:16 Plan of Care [code = 1877 6-5] [facility] Scheduled Test 2013-09-25 19:46:27 Plan of Care [code = 1877 6-5] [facility] Scheduled Test 2013-08-21 20:48:32 Plan of Care [code = 1877 6-5] [facility] Scheduled Test 2013-05-26 22:02:22 Plan of Care [code = 1877 6-5] [facility] Scheduled Test 2013-05-19 18:47:45 Plan of Care [code = 1877 6-5] [facility] Scheduled Test 2013-05-14 09:01:33 Plan of Care [code = 1877 6-5] [facility] Scheduled Test 1990 00:00:00 SHINGLES VACCINES (#1) [code = SHINGLES VACCINES (#1)] [facility] Scheduled Test 1950 00:00:00 DIABETIC FOOT EXAM [code = DIABETIC FOOT EXAM] [facility] Scheduled Test 1950 00:00:00 URINE MICROALBUMIN [code = URINE MICROALBUMIN] [facility] Future Scheduled Test 1940 00:00:00 DIABETIC RETINAL E YE EXAM [code = DIABETIC RETINAL EYE EXAM] [facility] Encounters Start Date/Time End Date/Time Encounter Type Admission Type [facility] Care Department Encounter ID Source 2020-04-14 00:00:00 2020-04-14 00:00:00 Outpatient JAI ABBIE [facility] [id number] [facility] 2020-04-12 00:00:00 2020-04-12 00:00:00 Outpatient JAI ABBIE [facility] [id number] [facility] 2020-04-09 00:00:00 2020-04-09 00:00:00 Outpatient JAI ABBIE [facility] [id number] [facility] 2020-04-07 00:00:00 2020-04-07 00:00:00 Outpatient JAI ABBIE [facility] [id number] [facility] 2020-04-02 00:00:00 2020-04-02 00:00:00 Outpatient JAI ABBIE [facility] [id number] [facility] 2020-03-29 00:00:00 2020-03-29 00:00:00 Outpatient JAI ABBIE [facility] [id number] [facility] 2020-03-25 00:00:00 2020-03-25 00:00:00 Outpatient JAI STEVENICOLE [facility] [id number] [facility] 2020-03-22 00:00:00 2020-03-22 00:00:00 Outpatient JAI ABBIE [facility] [id number] [facility] 2020-03-18 00:00:00 2020-03-18 00:00:00 Outpatient CECILIA VERGARAJINA [facility] [id number] [facility] 2020-03-15 00:00:00 2020-03-15 00:00:00 Outpatient CECILIA VERGARACHRISTYNICOLE [facility] [id number] [facility] 2020-03-10 00:00:00 2020-03-10 00:00:00 Outpatient ABBIE VERGARA [facility] [id number] [facility] 2020-03-08 00:00:00 2020-03-08 00:00:00 Outpatient ABBIE VERGARA [facility] [id number] [facility] 2020-03-03 00:00:00 2020-03-03 00:00:00 Outpatient ABBIE VERGARA [facility] [id number] [facility] 2020-03-01 00:00:00 2020-03-01 00:00:00 Outpatient ABBIE VERGARA [facility] [id number] [facility] 2020-02-25 00:00:00 2020-02-25 00:00:00 Outpatient ABBIE VERGARA [facility] [id number] [facility] 2020-02-23 00:00:00 2020-02-23 00:00:00 Outpatient ABBIE VERGARA [facility] [id number] [facility] 2020-02-17 00:00:00 2020-02-17 00:00:00 Outpatient ABBIE VERGARA [facility] [id number] [facility] 2020-02-16 00:00:00 2020-02-16 00:00:00 Outpatient ABBIE VERGARA [facility] [id number] [facility] 2020-02-11 00:00:00 2020-02-11 00:00:00 Outpatient ABBIE VERGARA [facility] [id number] [facility] 2020-02-09 00:00:00 2020-02-09 00:00:00 Outpatient ABBIE VERGARA [facility] [id number] [facility] 2020-02-06 00:00:00 2020-02-06 00:00:00 Outpatient ABBIE VERGARA [facility] [id number] [facility] 2020-01-30 00:00:00 2020-01-30 00:00:00 Outpatient ABBIE VERGARA [facility] [id number] [facility] 2019-06-05 14:09:00 2019-06-05 23:59:00 Outpatient Stefanie Elaine [facility] [id number] 2019-04-21 16:15:00 2019-04-21 16:15:00 Outpatient [facility] [id number] [facility] 2019-04-09 10:45:00 2019-04-09 10:45:00 Outpatient [facility] [id number] [facility] 2019-04-02 13:29:00 2019-04-02 13:29:00 Outpatient [facility] [id number] [facility] 2019-03-26 16:41:00 2019-03-26 16:41:00 Outpatient [facility] [id number] [facility] 2019-03-19 15:05:00 2019-03-19 15:05:00 Outpatient [facility] [id number] [facility] 2019-03-18 10:00:00 2019-03-18 10:00:00 Outpatient [facility] [id number] [facility] 2018-09-16 11:15:00 2018-09-16 11:15:00 Appointment; NE ROCHA P.A. SPOONER, JOSEPH, P.A. [facility] [id number] [facility] 2018-08-31 11:45:00 2018-08-31 11:45:00 Appointment; NE ROCHA P.A. SPOONER, JOSEPH, P.A. [facility] [id number] [facility] 2018-07-23 08:11:00 2018-07-23 23:59:00 Outpatient Ellenbyron tonja Anuj MHOIB MHOIB [id number] 2018-07-22 16:00:00 2018-07-22 16:00:00 Appointment; ISAIAS MARQUEZ M.D. HAWKINS, WENDY M.D. [facility] [id number] [facility] 2018-07-22 15:00:00 2018-07-22 15:00:00 Appointment; ANUJ LOZA M.D. JAMALYARIA, FAROKH, M.D. [facility] [id number] [facility] 2018-07-19 15:30:00 2018-07-19 15:30:00 Appointment; GERALD HAYES M.D. BORTOLOTTI, JULIE, M.D. [facility] [id number] [facility] 2018-07-15 10:15:00 2018-07-15 10:15:00 Appointment; PRAVEENA PLATT D.O. YEH, SHAO-CHUN, D.O. [facility] [id number] [facility] 2018-05-24 13:30:00 2018-05-24 13:30:00 Appointment; GERALD HAYES M.D. BORTOLOTTI, JULIE, M.D. [facility] [id number] [facility] 2018-05-18 10:15:00 2018-05-18 10:15:00 Appointment; DEBORA PEREIRA M.D. MURPHY, THOMAS, M.D. [facility] [address] [id number] [facility] 2018-04-30 14:40:00 2018-04-30 14:40:00 Appointment; ISAIAS MARQUEZ M.D. HAWKINS, WENDY, M.D. [facility] [id number] [facility] 2018-04-16 08:41:00 2018-04-16 23:59:00 Outpatient [facility] [id number] 2018-03-25 15:30:00 2018-03-25 15:30:00 Appointment; ANUJ LOZA M.D. JAMALYARIA, FAROKH, M.D. [facility] [id number] [facility] 2018-03-11 14:15:00 2018-03-11 14:15:00 Appointment; GERALD HAYES M.D. BORTOLOTTI, JULIE, M.D. [facility] [address] [id number] [facility] 2018-03-11 14:00:00 2018-03-11 14:00:00 Appointment; GERALD HAYES M.D. BORTOLOTTI, JULIE, M.D. [facility] [address] [id number] [facility] 2018-01-14 08:40:00 2018-01-14 08:40:00 Appointment; ISAIAS MARQUEZ M.D. HAWKINS, WENDY, M.D. [facility] [id number] [facility] 2017-12-17 15:30:00 2017-12-17 15:30:00 Appointment; SAMUEL PALMA NP TRAN, THUY, NP [facility] [id number] [facility] 2017-12-13 15:00:00 2017-12-13 15:00:00 Appointment; SAMUEL PALMA NP TRAN, THUY, NP [facility] [id number] [facility] 2017-11-26 11:30:00 2017-11-26 11:30:00 Appointment; ANUJ LOZA M.D. JAMALYARIA, FAROKH, M.D. [facility] [id number] [facility] 2017-11-15 09:00:00 2017-11-15 09:00:00 Appointment; MICKIE CERVANTES PIO [facility] [id number] [facility] 2017-11-12 11:30:00 2017-11-12 11:30:00 Appointment; Shanti PARTIDA-MS, NURSING [facility] [address] [id number] [facility] 2017-11-05 11:30:00 2017-11-05 11:30:00 Appointment; JENNIFEROREVigneshMS N TUNDE POLLARD-MS, NURSING [facility] [id number] [facility] 2017-10-29 11:30:00 2017-10-29 11:30:00 Appointment; [place]-MS, N URSING [place]-MS, NURSING [facility] [id number] [facility] 2017-10-22 15:00:00 2017-10-22 15:00:00 Appointment; ANUJ LOZA M.D. JAMALYARIA, FAROKH, M.D. [facility] [id number] [facility] 2017-10-22 15:00:00 2017-10-22 15:00:00 Appointment; [place]-MS, N URSING [place]-MS, NURSING [facility] [address] [id number] [facility] 2017-10-15 14:30:00 2017-10-15 14:30:00 Appointment; GERALD HAYES M.D. BORTOLOTTI, JULIE, M.D. [facility] [address] [id number] [facility] 2017-10-15 08:40:00 2017-10-15 08:40:00 Appointment; ISAIAS MARQUEZ M.D. HAWKINS, WENDY, M.D. [facility] [id number] [facility] 2017-09-15 10:00:00 2017-09-15 10:00:00 Appointment; DEBORA PEREIRA M.D. MURPHY, THOMAS, M.D. [facility] [address] [id number] [facility] 2017-09-12 16:00:00 2017-09-12 16:00:00 Appointment; ANUJ LOZA M.D. JAMALYARIA, FAROKH, M.D. [facility] [id number] [facility] 2017-08-27 14:30:00 2017-08-27 14:30:00 Appointment; ANUJ LOZA M.D. JAMALYARIA, FAROKH, M.D. [facility] [id number] [facility] 2017-08-15 14:00:00 2017-08-15 14:00:00 Appointment; PRAVEENA PLATT D.O. YEH, SHAO-CHUN, D.O. [facility] [id number] [facility] 2017-08-01 13:00:00 2017-08-01 13:00:00 Appointment; LINA TENORIO M.D. SATTAR, BEENA, M.D. [facility] [id number] [facility] 2017-07-20 12:30:00 2017-07-20 12:30:00 Appointment; SAMUEL PALMA NP TRAN, THUY, NP [facility] [id number] [facility] 2017-07-18 15:30:00 2017-07-18 15:30:00 Appointment; SAMUEL PALMA NP TRAN, THUY, NP [facility] [id number] [facility] 2017-07-09 08:40:00 2017-07-09 08:40:00 Appointment; ISAIAS MARQUEZ M.D. HAWKINS, WENDY, M.D. [facility] [id number] [facility] 2017-06-25 15:30:00 2017-06-25 15:30:00 Appointment; ANUJ LOZA M.D. JAMALYARIA, FAROKH, M.D. [facility] [id number] [facility] 2017-06-18 15:15:00 2017-06-18 15:15:00 Appointment; GERALD HAYES M.D. BORTOLOTTI, JULIE, M.D. [facility] [id number] [facility] 2017-06-01 13:30:00 2017-06-01 13:30:00 Appointment; GERALD HAYES M.D. BORTOLOTTI, JULIE, M.D. [facility] [id number] [facility] 2017-04-30 14:00:00 2017-04-30 14:00:00 Appointment; ISAIAS MARQUEZ M.D. HAWKINS, WENDY, M.D. [facility] [id number] [facility] 2017-04-23 14:40:00 2017-04-23 14:40:00 Appointment; ISAIAS MARQUEZ M.D. HAWKINS, WENDY, M.D. [facility] [id number] [facility] 2017-03-26 15:00:00 2017-03-26 15:00:00 Appointment; ISAIAS MARQUEZ M.D. HAWKINS, WENDY, M.D. [facility] [id number] [facility] 2017-02-26 14:00:00 2017-02-26 14:00:00 Appointment; ANUJ LOZA M.D. JAMALYARIA, FAROKH, M.D. [facility] [id number] [facility] 2017-02-12 11:15:00 2017-02-12 11:15:00 Appointment; GERALD HAYES M.D. BORTOLOTTI, JULIE, M.D. [facility] [id number] [facility] 2017-01-22 11:15:00 2017-01-22 11:15:00 Appointment; GERALD HAYES M.D. BORTOLOTTI, JULIE, M.D. [facility] [id number] [facility] 2017-01-01 11:00:00 2017-01-01 11:00:00 Appointment; GERALD HAYES M.D. BORTOLOTTI, JULIE, M.D. [facility] [id number] [facility] 2016-12-26 11:30:00 2016-12-26 11:30:00 Appointment; ANUJ LOZA M.D. JAMALYARIA, FAROKH, M.D. [facility] [id number] [facility] 2016-10-30 10:45:00 2016-10-30 10:45:00 Appointment; GERALD HAYES M.D. BORTOLOTTI, JULIE, M.D. [facility] [id number] [facility] 2016-10-18 11:00:00 2016-10-18 11:00:00 Appointment; ANUJ LOZA M.D. JAMALYARIA, FAROKH, M.D. [facility] [id number] [facility] 2016-09-15 16:00:00 2016-09-15 16:00:00 Appointment; SAMUEL PALMA NP TRAN, THUY, NP [facility] [id number] [facility] 2016-09-09 12:00:00 2016-09-09 12:00:00 Appointment; NIKKY CHICAS M.D. [place], HUBERT, M.D. [facility] [id number] [facility] 2016-07-27 08:30:00 2016-07-27 08:30:00 Appointment; GERALD HAYES M.D. BORTOLOTTI, JULIE, M.D. [facility] [id number] [facility] 2016-07-20 13:24:00 2016-07-20 23:59:00 Outpatient Neville Oliva Marie MHOIB OIB [id number] 2016-07-20 13:30:00 2016-07-20 13:30:00 Appointment; ARUN OLIVA M.D. HUANG, EDDIE, M.D. [facility] [id number] [facility] 2016-07-10 09:15:00 2016-07-10 09:15:00 Appointment; DANNY GOVEA P.A. CAMPOS, BERTHA, P.A. [facility] [id number] [facility] 2016-07-03 10:45:00 2016-07-03 10:45:00 Appointment; GERALD HAYES M.D. BORTOLOTTI, JULIE, M.D. [facility] [id number] [facility] 2016-06-19 09:30:00 2016-06-19 09:30:00 Appointment; GERALD HAYES M.D. BORTOLOTTI, JULIE, M.D. [facility] [id number] [facility] 2016-06-15 09:30:00 2016-06-15 09:30:00 Appointment; GERALD HAYES M.D. BORTOLOTTI, JULIE, M.D. [facility] [id number] [facility] 2016-05-08 13:00:00 2016-05-08 13:00:00 Appointment; ANUJ LOZA M.D. JAMALYARIA, FAROKH, M.D. [facility] [id number] [facility] 2016-04-13 11:00:00 2016-04-13 11:00:00 Appointment; NIKKY CHICAS M.D. [place], HUBERT, M.D. [facility] [id number] [facility] 2016-04-11 08:15:00 2016-04-11 08:15:00 Appointment; YAIR LAZO M.D. PERKISON, WILLIAM, M.D. [facility] [id number] [facility] 2016-03-24 11:30:00 2016-03-24 11:30:00 Appointment; ANUJ LOZA M.D. JAMALYARIA, FAROKH, M.D. [facility] [id number] [facility] 2016-03-01 13:00:00 2016-03-01 13:00:00 Appointment; ANUJ LOZA M.D. JAMALYARIA, FAROKH, M.D. [facility] [id number] [facility] 2016-02-22 14:00:00 2016-02-22 14:00:00 Appointment; EUNICE GOODEN NP TEJADA-FOSTER, NORMA, NP [facility] [id number] [facility] 2016-02-14 09:30:00 2016-02-14 09:30:00 Appointment; GERALD HAYES M.D. BORTOLOTTI, JULIE, M.D. [facility] [id number] [facility] 2016-01-28 11:36:00 2016-01-28 23:59:00 Outpatient Anuj Saunders [facility] [id number] 2016-01-28 10:00:00 2016-01-28 10:00:00 Appointment; ANUJ LOZA M.D. JAMALYARIA, FAROKH, M.D. [facility]UST UTP [id number] [facility] 2016-01-20 09:16:00 2016-01-20 23:59:00 Outpatient Harika Sneed ELIAZARB OIB [id number] 2016-01-11 09:45:00 2016-01-11 09:45:00 Appointment; GERALD HAYES M.D. BORTOLOTTI, JULIE, M.D. UTP UTP [id number] [facility] 2016-01-06 14:00:00 2016-01-06 14:00:00 Appointment; EVANS-FOST ER, EUNICE, ANIMAL TRAPPER GHAZALA EUNICE, ANIMAL TRAPPER UTP UTP [id number] [facility] 2015-11-22 12:30:00 2015-11-22 12:30:00 Appointment; EVANS-FOST ER, EUNICE, ANIMAL TRAPPER GHAZALA EUNICE, ANIMAL TRAPPER UTP UTP [id number] [facility] 2015-10-29 13:00:00 2015-10-29 13:00:00 Appointment; MARQUES PARKS N P BECK, SHERI, NP UTP UTP [id number] [facility] 2015-10-14 12:30:00 2015-10-14 12:30:00 Appointment; EVANS-FOST ER, EUNICE, ANIMAL TRAPPER GHAZALA EUNICE, ANIMAL TRAPPER UTP UTP [id number] [facility] 2015-10-04 11:11:00 2015-10-04 23:59:00 Outpatient Teena Pereira MHOIB MHOIB [id number] 2015-10-04 09:30:00 2015-10-04 09:30:00 Appointment; EVANS-FOST ER, EUNICE, ANIMAL TRAPPER ASHISH VIVARA, ANIMAL TRAPPER UTP UTP [id number] [facility] [facility] 2015-09-27 14:30:00 2015-09-27 14:30:00 Appointment; GERALD HAYES M.D. BORTOLOTTI, JULIE, M.D. [facility] [id number] [facility] 2015-09-16 11:30:00 2015-09-16 11:30:00 Appointment; GERALD HAYES M.D. BORTOLOTTI, JULIE, M.D. [facility] [id number] [facility] 2015-08-23 13:45:00 2015-08-23 13:45:00 Appointment; GERALD HAYES M.D. BORTOLOTTI, JULIE, M.D. [facility] [id number] [facility] 2015-08-16 15:30:00 2015-08-16 15:30:00 Appointment; EUNICE GOODEN NP TEJADA-FOSTER, NORMA, NP [facility] [id number] [facility] 2014-01-14 09:51:34 2014-01-14 09:51:33 Outpatient MHIE MHIE [id number] 2014-01-02 15:11:28 2014-01-02 15:11:28 Outpatient MHIE MHIE [id number] 2013-11-17 08:51:30 2013-11-17 08:51:30 Outpatient MHIE MHIE [id number] 2013-11-14 16:16:13 2013-11-14 16:16:13 Outpatient MHIE MHIE [id number] 2013-11-12 11:34:04 2013-11-12 11:34:03 Outpatient MHIE MHIE [id number] 2013-11-10 20:45:46 2013-11-10 20:45:42 Outpatient MHIE MHIE [id number] 2013-11-07 14:02:24 2013-11-07 14:02:24 Outpatient MHIE MHIE [id number] 2013-11-04 15:48:29 2013-11-04 15:48:28 Outpatient MHIE MHIE [id number] 2013-10-29 10:32:27 2013-10-29 10:32:26 Outpatient MHIE MHIE [id number] 2013-10-28 08:16:07 2013-10-28 08:16:06 Outpatient MHIE MHIE [id number] 2013-10-08 10:01:08 2013-10-08 10:01:07 Outpatient MHIE MHIE [id number] 2013-10-07 15:11:16 2013-10-07 15:11:16 Outpatient MHIE MHIE [id number] 2013-09-25 13:46:28 2013-09-25 13:46:27 Outpatient MHIE MHIE [id number] 2013-08-21 14:48:32 2013-08-21 14:48:32 Outpatient MHIE MHIE [id number] 2013-07-25 13:02:41 2013-07-25 13:02:41 Outpatient MHIE MHIE [id number] 2013-07-24 12:16:11 2013-07-24 12:16:10 Outpatient MHIE MHIE [id number] 2013-06-23 15:17:53 2013-06-23 15:17:52 Outpatient MHIE MHIE [id number] 2013-06-21 18:30:15 2013-06-21 18:30:15 Outpatient MHIE MHIE [id number] 2013-06-02 16:16:34 2013-06-02 16:16:33 Outpatient MHIE MHIE [id number] 2013-05-29 15:16:49 2013-05-29 15:16:49 Outpatient MHIE MHIE [id number] 2013-05-26 17:02:23 2013-05-26 17:02:22 Outpatient MHIE MHIE [id number] 2013-05-26 16:30:00 2013-05-26 16:30:00 Appointment; GERALD HAYES M.D. BORTOLOTTI, JULIE, M.D. [facility] [address] [id number] [facility] 2013-05-20 13:16:18 2013-05-20 13:16:17 Outpatient MHIE MHIE [id number] 2013-05-19 13:47:45 2013-05-19 13:47:45 Outpatient MHIE MHIE [id number] 2013-05-14 04:01:54 2013-05-14 04:01:33 Outpatient MHIE MHIE [id number] 2013-05-06 21:36:30 2013-05-06 21:36:09 Outpatient MHIE MHIE [id number] 2013-04-29 01:16:48 2013-04-29 01:16:24 Outpatient MHIE MHIE [id number] 2012-11-29 12:38:25 2012-11-29 12:38:08 Outpatient MHIE MHIE [id number] 2012-10-03 13:14:20 2012-10-03 13:14:03 Outpatient MHIE MHIE [id number] 2012-09-30 10:52:27 2012-09-30 10:52:10 Outpatient MHIE MHIE [id number] 2012-09-18 13:50:42 2012-09-18 13:50:23 Outpatient MHIE MHIE [id number] Results Test Description Test Time Test Comments Results Result Comments Source DIAG MAMM BILATERAL ROSS CAD DIGITAL 2020-03-08 15:04:21 - DIAG MAMM BILATERAL ROSS CAD DIGITALBILATERAL DIGITAL DIAGNOSTIC MAMMOGRAM 3D/2D WITH CAD: 03/08/2020CLINICAL: Palpable mass, right breast. Digital breast tomosynthesis was performed in addition to routine CC and MLO views. Current mammographic images were evaluated by either a [employer] M-Vu or a [employer] ImageMaclearcker CAD (computer aided detection system). Comparison is made to exams dated 06/27/20 19 mammogram, 06/18/2018 mammogram, and 04/02/2017 mammogram - [facility]-. There are scattered fibroglandular tissues in both breasts. There are benign vascular calcifications in both breasts. No suspicious mass, architectural distortion, malignant type calcification, or lymph node abnormality detected. INCOMPLETE: ADDITIONAL IMAGING EVALUATION NEEDEDBilateral ultrasound pending for additional evaluation. - BREAST ULTRASOUND BILATERALULTRASOUND OF BOTH BREASTS AND BOTH AXILLA: 03/08/2020Comparison is made to exams dated 06/27/2019 mammogram, 06/18/2018 mammogram, and 04/02/2017 mamm ogram - [facility]-. Real-time ultrasound of both breasts and both axilla and clinical breast exam were performed. No abnormalities were seen sonographically in either breast or either axilla. Clinical breast exam was unremarkable.IMPRESSION: NEGATIVE There is no sonographic evidence of malignancy. Resume annual screening mammography in one year. Enma Hobbs M.D. dm/:03/08/2020 15:04:21 Entry: - 03/09/2020 09:45:04Imaging Technologist: Devora Pantoja , [facility]-letter sent: BIRADS 1-2 Combo FU Letter Mammogram BI-RADS: 0 Incomplete: Additional Imaging Evaluation Needed Ultrasound BI-RADS: 1 Negative BREAST ULTRASOUND BILATERAL 2020-03-08 15:04:21 - DIAG MAMM BILATERAL ROSS CAD DIGITALBILATERAL DIGITAL DIAGNOSTIC MAMMOGRAM 3D/2D WITH CAD: 03/08/2020CLINICAL: Palpable mass, right breast. Digital breast tomosynthesis was performed in addition to routine CC and MLO views. Current mammographic images were evaluated by either a [employer] M-Vu or a [employer] ImageChecker CAD (computer aided detection system). Comparison is made to exams dated 06/27/20 19 mammogram, 06/18/2018 mammogram, and 04/02/2017 mammogram - [facility]-. There are scattered fibroglandular tissues in both breasts. There are benign vascular calcifications in both breasts. No suspicious mass, architectural distortion, malignant type calcification, or lymph node abnormality detected. INCOMPLETE: ADDITIONAL IMAGING EVALUATION NEEDEDBilateral ultrasound pending for additional evaluation. - BREAST ULTRASOUND BILATERALULTRASOUND OF BOTH BREASTS AND BOTH AXILLA: 03/08/2020Comparison is made to exams dated 06/27/2019 mammogram, 06/18/2018 mammogram, and [facility] Real-time ultrasound of both breasts and both axilla and clinical breast exam were performed. No abnormalities were seen sonographically in either breast or either axilla. Clinical breast exam was unremarkable.IMPRESSION: NEGATIVE There is no sonographic evidence of malignancy. Resume annual screening mammography in one year. Enma Hobbs M.D. dm/:03/08/2020 15:04:21 Entry: - 03/09/2020 09:45:04Imaging Technologist: Devora Pantoja , [facility]-letter sent: BIRADS 1-2 Combo FU Letter Mammogram BI-RADS: 0 Incomplete: Additional Imaging Evaluation Needed Ultrasound BI-RADS: 1 Negative XR Wrist Complete 3+ Views Left 2019-09-25 15:22:31 Patient: G[place]ON HILLS Date/Time09/25/2019 15:09 CSTReason for ExamTraumaReportEXAM: XR WRIST 2 VIEWS, LEFTINDICATION: TraumaCOMPARISON: None availableTECHNIQUE: AP and lateral views of the left wrist.FINDINGS:No acute fracture or dislocation is identified. No osseous lesions. The joint spaces are maintained. No soft tissue abnormality is iden tified.IMPRESSION:No acute osseous abnormality of the left wrist.LOCATION: R16 Final Dictated by: MD Burgos Melanie CDictated DT/TM: 09/25/2019 3:22 pmSigned by: MD Burgos Melanie CSigned (Electronic Signature): 09/25/2019 3:[address] Spine Cervical w/o Contrast 2019-09-25 14:58:50 Patient: G[place]ON HILLS Date/Time09/25/2019 14:48 CSTReason for ExamTraumaReportEXAM: CT CERVICAL SPINE WITHOUT CONTRASTINDICATION: TraumaCOMPARISON: None availableTECHNIQUE: Axial CT imaging of the cervical spine was obtained without intravenous contrast. Coronal and sagittal reformatted images were submitted for review. IV contrast: NoneDISCU SSION:No acute fracture or dislocation is identified. The atlantoaxial and atlantooccipital articulations are normal. There are postsurgical changes of prior anterior fusion of C3-C7 with plates and screws. There are disc spacers seen in place. The vertebral bodies are normal in height, alignment and density. The facet joints and spinous processes are normal in alignment. There is diffuse facet joint arthropathy.There is mild spinal canal narrowing noted throughout the cervical spine. There is multilevel czmb-wg-ujzaxrtx neuroforaminal stenosis throughout the cervical spine.The prevertebral and posterior paraspinal soft tissues are normal.IMPRESSION:1. No acute abnormality of the cervical spine.2. Postsurgical changes of prior anterior fusion of C3-C7 with plate and screws. Disc spacers are seen in place.3. Mild spinal canal narrowing throughout the cervical spine.4. Ijjd-op-qrnlumdf neuroforaminal stenosis throughout the cervical spine.LOCATION: A88Yjck CT exam was performed according to our departmental dose optimization program, which includes automated exposure control, adjustment of the mA and/or kV according to the patient size and/or use of iterative reconstructive technique. Final Dictated by: MD Burgos Melanie CDictated DT/TM: 09/25/2019 2:57 pmSigned by: MD Burgos Melanie CSigned (Electronic Signature): 09/25/2019 2:[address] Spine Cervical w/o Contrast 2019-09-25 14:58:50 Patient: G[place]S Date/Time09/25/2019 14:48 CSTReason for ExamTraumaReportEXAM: CT CERVICAL SPINE WITHOUT CONTRASTINDICATION: TraumaCOMPARISON: None availableTECHNIQUE: Axial CT imaging of the cervical spine was obtained without intravenous contrast. Coronal and sagittal reformatted images were submitted for review. IV contrast: NoneDISCU SSION:No acute fracture or dislocation is identified. The atlantoaxial and atlantooccipital articulations are normal. There are postsurgical changes of prior anterior fusion of C3-C7 with plates and screws. There are disc spacers seen in place. The vertebral bodies are normal in height, alignment and density. The facet joints and spinous processes are normal in alignment. There is diffuse facet joint arthropathy.There is mild spinal canal narrowing noted throughout the cervical spine. There is multilevel zawd-so-syifcjir neuroforaminal stenosis throughout the cervical spine.The prevertebral and posterior paraspinal soft tissues are normal.IMPRESSION:1. No acute abnormality of the cervical spine.2. Postsurgical changes of prior anterior fusion of C3-C7 with plate and screws. Disc spacers are seen in place.3. Mild spinal canal narrowing throughout the cervical spine.4. Vxdd-bg-stiyxvxp neuroforaminal stenosis throughout the cervical spine.LOCATION: N57Yhmt CT exam was performed according to our departmental dose optimization program, which includes automated exposure control, adjustment of the mA and/or kV according to the patient size and/or use of iterative reconstructive technique. Final Dictated by: MD Burgos Melanie CDictated DT/TM: 09/25/2019 2:57 pmSigned by: MD Burgos Melanie CSigned (Electronic Signature): 09/25/2019 2:[address] Brain/Head w/o Contrast 2019-09-25 14:56:50 P atient: GASTON H[place]S Date/Time09/25/2019 14:48 CSTReason for ExamTraumaReportEXAM: CT BRAIN WITHOUT CONTRASTINDICATION: TraumaCOMPARISON: None availableTECHNIQUE: Routine axial noncontrast CT images of the brain were obtained.IV contrast: None.DLP: 1179.8 mGy-cmFINDINGS:No intra-axial or extra-axial fluid collections are identified. No acute hemorrhage.There is normal differentiation of the arreola and white matter. The ventricles and sulci are normal in size and shape with no midline shift or mass effect. The basal cisterns are patent. The posterior fossa and fourth ventricle are normal.There is a scalp imaging of overlying the left frontal bone measuring 2.4 x 1.4 x 2.0 cm. The paranasal sinuses and mastoid air cells are clear. No calvarial lesions. Skull base is intact. Orbits and globes are unremarkable.IMPRESSION:1. No acute intracranial abnormality. No intracranial hemorrhage.2. Scalp hematoma overlying the left frontal bone. No skull fractures.LOCATION: D32Apmd CT exam was performed according to our departmental dose optimization program, which includes automated exposure control, adjustment of the mA and/or kV according to the patient size and/or use of iterative reconstructive technique. Final Dictated by: MD Burgos Melanie CDictated DT/TM: 09/25/2019 2:55 pmSigned by: MD Burgos Melanie CSigned (Electronic Signature): 09/25/2019 2:56 pm SCR MAMM BILATERAL ROSS CAD DIGITAL 2019-06-30 09:16:48 - SCR MAMM BILATERAL ROSS CAD DIGITALBILATERAL DIGITAL SCREENING MAMMOGRAM 3D/2D WITH CAD: 06/27/2019CLINICAL: Asymptomatic. Digital breast tomosynthesis was performed in addition to routine CC and MLO views. Current mammographic images were evaluated by either a [employer] M-Vu or a [employer] ImageChecker CAD (computer aided detection system). Comparison is made to exams dated 06/18/2018 mammogram, 03/11 mammogram, and 06/19/2016 mammogram - [facility]-. There are scattered fibroglandular tissues in both breasts. No suspicious mass, architectural distortion, malignant type calcification, or lymph node abnormality detected. Breast architecture is stable compared to prior exams.IMPRESSION: NEGATIVEThere is no mammographic evidence of malignancy. Resume annual screening mammography in one year. Brittani lamb/cassierad:06/30/2019 09:16:48 Substation Operator Apprentice: Laura LYNN, [facility]-FWletter sent: BIRADS 1-2 Normal Mammogram BI-RADS: 1 Negative [O] Streptococcus Test Rapid (In Office) 2018-09-16 00:00:00 Test Item Group A Strep Screen (test code = 34479-5) negative [facility][O] Influenza A and B, Rapid Method (In Office) 2018-09-16 00:00:00* Test Item Value Reference Range Interpretation Comments INFLUENZA A & B Rapid (test code = INFLUENZA A & B Rapid) negative [facility][O] Influenza A and B, Rapid Method (In Office) 2018-08-31 00:00:00* Test Item Value Reference Range Interpretation Comments INFLUENZA A & B Rapid (test code = INFLUENZA A & B Rapid) Negative MS [facility][O] Streptococcus Test Rapid (In Office)2018-08-31 00:00:00* Test Item Value Reference Range Interpretation Comments Group A Strep Screen; Normal (test code = 26679-1) Negative N [facility][QLH] CMP [id number] 11:05:00* Test Item Value Reference Range Interpretation Comments Glucose (test code = 2345-7) 89 mg/dL 65-99 BUN (test code = 3094-0) 23 mg/dL 8-27 Creatinine (test code = 2160-0) 0.84 mg/dL 0.57-1.00 eGFR If NonAfricn Am (test code = 46121-3) 67 mL/min/1.7 >59 eGFR If Africn Am (test code = 75678-7) 78 mL/min/1.7 >59 BUN/Creatinine Ratio (test code = 3097-3) 27 12-28 Sodium, Serum (test code = 2951-2) 140 mmol/L 134-144 Potassium (test code = 2823-3) 4.5 mmol/L 3.5-5.2 Chloride (test code = 2075-0) 98 mmol/L 96-106 Carbon Dioxide, Total (test code = 2027-9) 27 mmol/L 20-29 Calcium, Serum (test code = 05905-8) 9.0 mg/dL 8.7-10.3 Protein, Total (test code = 2885-2) 6.8 g/dL 6.0-8.5 Albumin (test code = 1751-7) 4.3 g/dL 3.5-4.8 Globalulin, Total (test code = 74094-8) 2.5 g/dL 1.5-4.5 A/G Ratio (test code = 1759-0) 1.7 1.2-2.2 Bilirubin, Total (test code = 1975-2) 0.4 mg/dL 0.0-1.2 Alkaline Phosphatase (test code = 6768-6) 75 {IU/L} 39-117 AST (SGOT) (test code = 1920-8) 16 {IU/L} 0-40 ALT (SGPT) (test code = 1742-6) 13 {IU/L} 0-32 [facility]] CBC (INCLUDES DIFF/PLT)2018-07-27 11:05:00* Test Item Value Reference Range Interpretation Comments WBC (test code = 6690-2) 8.8 {x10E3/uL} 3.4-10.8 RBC; Below Low Threshold (test code = 789-8) 3.51 {x10E6/uL} 3.77-5 .28 Hemoglobin (test code = 718-7) 11.4 g/dL 11.1-15.9 Hematocrit (test code = 4544-3) 35.0 % 34.0-46.6 MCV; Above High Threshold (test code = 787-2) 100 fL 79-97 MCH (test code = 785-6) 32.5 pg 26.6-33.0 MCHC (test code = 786-4) 32.6 g/dL 31.5-35.7 RDW (test code = 788-0) 14.5 % 12.3-15.4 Platelets (test code = 777-3) 299 {x10E3/uL} 150-379 Neutrophils (test code = 770-8) 72 % Not Estab. Lymphs (test code = 736-9) 18 % Not Estab. Monocytes (test code = 5905-5) 6 % Not Estab. Eos (test code = 713-8) 3 % Not Estab. Basos (test code = 706-2) 0 % Not Estab. Immature Cells (test code = Immature Cells) See Comment Neutrophils (Absolute) (test code = 751-8) 6.4 {x10E3/uL} 1.4-7.0 Lymphs (Absolute) (test code = 731-0) 1.6 {x10E3/uL} 0.7-3.1 Monocytes(Absolute) (test code = 742-7) 0.5 {x10E3/uL} 0.1-0.9 Eos (Absolute) (test code = 711-2) 0.3 {x10E3/uL} 0.0-0.4 Baso (Absolute) (test code = 704-7) 0.0 {x10E3/uL} 0.0-0.2 Immature Granulocytes (test code = 74197-4) 1 % Not Estab. Immature Grans (Abs) (test code = 62012-8) 0.1 {x10E3/uL} 0.0-0.1 NRBC (test code = 99958-8) See Comment Hematology Comments: (test code = 91664-9) See Comment [facility]] SED RATE BY MODIFIED [id number] 11:05:00* Test Item Value Reference Range Interpretation Comments Sedimentation Rate-Smiley (test code = 4537-7) 14 {mm/hr} 0-4 0 [facility]] C-REACTIVE [id number] 11:05:00* Test Item Value Reference Range Interpretation Comments C-Reactive Protein, Quant (test code = 1988-5) 4.2 mg/L 0.0-4.9 [facility] [id number] 08:23:00EXAM: XR CHEST 2 VIEWSDATE: 07/23/2018 8:23 AM CSTINDICATION: - lower respiratory infectionCOMPARISON: Chest radiograph dated 10/04/2015TECHNIQUE: PA and lateral chest radiographsFINDINGS:Lungs are symmetrically well expanded. No pulmonary or pleural-basedabnormality is identified.The cardiomediastinal silhouette is no rmal.No acute osseous abnormality is identified. Surgical fixation hardware seen inthe lower cervical spine.IMPRESSION: No acute cardiopulmonary abnormality.--R ead by: Ramin Cai MDDictated Date/time: 07/23/18 09:00Electronical ly Signed by: Ramin Cai MD 07/23/1809:01FINAL REPO RTUnRiverton [facility] PhysiciansGlucose (Point of Care In Office)2018-07-22 16:10:00* Test Item Value Reference Range Interpretation Comments Glucose POC Lifescan (test code = Glucose POC Lifescan) 126 [facility][O] Hemoglobin A1c (in office)2018-07-22 16:09:00 * Test Item Value Reference Range Interpretation Comments HEMOGLOBIN A1c (test code = 4548-4) 6.3 [facility][O] Hemoglobin A1c (in office)2018-04-30 15:15:00 * Test Item Value Reference Range Interpretation Comments HEMOGLOBIN A1c (test code = 4548-4) 6.3 [facility]2018-04-30 15:15:00* Test Item Value Reference Range Interpretation Comments Glucose POC Lifescan (test code = Glucose POC Lifescan) 99 [facility] Bone Density [employer] [id number] 09:04:00BONE DENSITY ASSESSMENT: 04/16/2018CLINICAL DATA: Post menopausal. M81.0 Age-Related Osteoporosis WithoutCurrent Pathological Fracture/M81.0 Age-Related Osteoporosis Without CurrentPathological FractureFINDINGS:Bone density evaluation was performed 04/16/2018 on the right femur neck usinga Hologic unit. The BMD average for the exam is 0.633 g/cm2. The T-score is-1.90 and the Z-score is 0.20. This matches the World Health Organization'scriteria for osteopenia and places the patient at a medium risk for fracture. An additional bone density evaluation was performed 04/16/2018 on the leftfemur neck using a Hologic unit. The BMD average for the exam is 0.629 g/cm2.The T- score is -2.00 and the Z-score is 0.20. This matches the World HealthOrganization's criteria for osteopenia and places the patient at a medium riskfor fracture. An additional bone density evaluation was performed 04/16/2018 on the right hipusing a Hologic unit. The BMD average for the exam is 0.868 g/cm2. The T-scoreis -0.60 and the Z-score is 1.30. This matches the World Health Organization'scriteria for normal bone density and places the patient within normal limits offracture risk. An additional bone density evaluation was performed 04/16/2018 on the left hipusing a Hologic unit. The BMD average for the exam is 0.883 g/cm2. The T-scoreis -0.50 and the Z-score is 1.40. This matches the World Health Organization'scriteria for normal bone density and places the patient within normal limits offracture risk. An additional bone density evaluation was performed 04/16/2018 on the AP L1-K1dpzslj of spine using a Hologic unit. The BMD average for the exam is 1.205 g/cm2. The T-score is 1.40 and the Z-score is 4.00. This matches the WorldHealth Organization's crit eria for normal bone density and places the patientwithin normal limits of fract ure risk. FRAX 10 year probability of major osteoporotic fracture is 13% and hip fractureis 3.4%. IMPRESSION: OSTEOPENIAPatient is at medium risk for fracture. This exam was interpreted [id number] for KALI Nova 15. Aaron burgos/frank:04/16/2018 09:50:44 Substation Operator Apprentice(s): Nanci ONEIL(R)(M), Matthew Warren--Read by: Luc Bower MDDictated Date/time: 09:50Electronically Signed by: Luc Bower MD 9:50FINAL REPORTUnRiverton Hospital [facility]icians[[facility]] CBC (INCLUDES DIFF/PLT)2018-03-29 11:57:00* Test Item Value Reference Range Interpretation Comments WBC (test code = 6690-2) 5.1 {x10E3/uL} 3.4-10.8 RBC; Below Low Threshold (test code = 789-8) 3.36 {x10E6/uL} 3.77-5 .28 Hemoglobin; Below Low Threshold (test code = 718-7) 11.0 g/dL 11 .1-15.9 Hematocrit (test code = 4544-3) 35.2 % 34.0-46.6 MCV; Above High Threshold (test code = 787-2) 105 fL 79-97 MCH (test code = 785-6) 32.7 pg 26.6-33.0 MCHC; Below Low Threshold (test code = 786-4) 31.3 g/dL 31.5-35. 7 RDW (test code = 788-0) 14.3 % 12.3-15.4 Platelets (test code = 777-3) 228 {x10E3/uL} 150-379 Neutrophils (test code = 770-8) 58 % Not Estab. Lymphs (test code = 736-9) 27 % Not Estab. Monocytes (test code = 5905-5) 9 % Not Estab. Eos (test code = 713-8) 5 % Not Estab. Basos (test code = 706-2) 1 % Not Estab. Immature Cells (test code = Immature Cells) See Comment Neutrophils (Absolute) (test code = 751-8) 3.0 {x10E3/uL} 1.4-7.0 Lymphs (Absolute) (test code = 731-0) 1.4 {x10E3/uL} 0.7-3.1 Monocytes(Absolute) (test code = 742-7) 0.4 {x10E3/uL} 0.1-0.9 Eos (Absolute) (test code = 711-2) 0.3 {x10E3/uL} 0.0-0.4 Baso (Absolute) (test code = 704-7) 0.0 {x10E3/uL} 0.0-0.2 Immature Granulocytes (test code = 30077-9) 0 % Not Estab. Immature Grans (Abs) (test code = 57695-4) 0.0 {x10E3/uL} 0.0-0.1 NRBC (test code = 17057-8) See Comment Hematology Comments: (test code = 20422-1) See Comment [facility][L] Hepatic Function Panel (7)2018-03-29 11:57:00 * Test Item Value Reference Range Interpretation Comments Protein, Total (test code = 2885-2) 6.7 g/dL 6.0-8.5 Albumin (test code = 1751-7) 4.0 g/dL 3.5-4.8 Bilirubin, Total (test code = 1974-2) 0.4 mg/dL 0.0-1.2 Bilirubin, Direct (test code = 1967-7) 0.12 mg/dL 0.00-0.40 Alkaline Phosphatase (test code = 6768-6) 69 {IU/L} 39-117 AST (SGOT) (test code = 1920-8) 18 {IU/L} 0-40 ALT (SGPT) (test code = 1742-6) 13 {IU/L} 0-32 [facility]] SED RATE BY MODIFIED [id number] 11:57:00* Test Item Value Reference Range Interpretation Comments Sedimentation Rate-Smiley (test code = 4537-7) 6 {mm/hr} 0-4 0 [facility]] C-REACTIVE [id number] 11:57:00* Test Item Value Reference Range Interpretation Comments C-Reactive Protein, Quant (test code = 1988-5) 2.6 mg/L 0.0-4.9 [facility][L] Verbal [id number] 11:57:00* Test Item Value Reference Range Interpretation Comments See Below (test code = See Below) Comment: Please provide requested information and fax to . .The [place] Code of Federal Regulations requires a written andsigned request be forwarded to a laboratory following a verbal orderof a laboratory test. Please assist us to meet this requirement andto complete our records. .Date: .ICD-9/10 Diagnosis Code(s): .Physician or Authorized Designee: Please Print .Physician or Authorized Designee Signature: . Your Signature Confirms Your Order Of The Test(s) Listed . Additional Test(s) Requested (test code = Additional T est(s) Requested) Comment: Test(s) added per Ro xanne PSYCHIATRIC SECRETARY at account [id number] by Billie Veloz# [id number] TSH Rfx on Abnormal to Free T4Test# 316002 Vitamin B12 and FolateDiagnosis Codes Provided M06.9 Z79.899 Verbal Order (test code = Verbal Order) See Comment This is the second notice requesting this information.An IMMEDIATE response is needed. [facility][] VITAMIN B12/FOLATE, SERUM [id number] 11:57:00* Test Item Value Reference Range Interpretation Comments Vitamin B12 (test code = 2132-9) 777 pg/mL 232-1245 Folate (Folic Acid), Serum (test code = 2284-8) >19.9 >3.0 A serum folate concentration of less than 3.1 ng/mL isconsidered to represent clinical deficiency. [facility]] TSH, 3RD GENERATION W/REFLEX TO FT4 2018-03-29 11:57:00* Test Item Value Reference Range Interpretation Comments TSH (test code = 40205-3) 3.540 {uIU/mL} 0.450-4.500 [facility][L] Written [id number] 11:57:00* Test Item Value Reference Range Interpretation Comments Written Authorization (test code = Written Authorization) See Vivianae nt Written Authorization Received.Authorization received from ANUJ LOZA [id number] by Cheri Spencer [facility]] BASIC METABOLIC PANEL [id number] 11:45:00* Test Item Value Reference Range Interpretation Comments Glucose, Serum; Above High Threshold (test code = 2345-7) 125 mg/dL 65-99 BUN (test code = 3094-0) 20 mg/dL 8-27 Creatine, Serum (test code = 2160-0) 0.82 mg/dL 0.57-1.00 eGFR If NonAfricn Am (test code = 54291-9) 69 mL/min/1.7 >59 eGFR If Africn Am (test code = 10016-5) 80 mL/min/1.7 >59 BUN/Creatine Ratio (test code = 3097-3) 24 12-28 Sodium, Serum (test code = 2951-2) 141 mmol/L 134-144 Potassium, Serum (test code = 2823-3) 4.7 mmol/L 3.5-5.2 Chloride, Serum (test code = 2075-0) 101 mmol/L 96-106 Carbon Dioxide, Total (test code = 2028-9) 24 mmol/L 20-29 Please note reference interval change Calcium, Serum (test code = 57567-1) 9.0 mg/dL 8.7-10.3 [facility] (Diabetic)2018-01-31 01:46:24* Test Item Value Reference Range Interpretation Comments Negative Diabetic Eye Screening (test code = Negative Diabetic Eye Screening) 12/17/2017, no retinopathy, [facility]] VITAMIN [id number] 09:36:01* Test Item Value Reference Range Interpretation Comments Vitamin B12 Level (test code = 2132-9) 726 pg/ml 254-1320 [facility]] MICROALBUMIN, RANDOM URINE (W/CREATININE) 2018-01-14 09:36:01* Test Item Value Reference Range Interpretation Comments Urine Microalbumin (test code = Urine Microalbumin) 6.4 mg/L U Creatinine (test code = 2161-8) 67.60 mg/dl No established reference ranges. Urine Microalbuming Creatinine Ratio (test code = 84200-1) 9 .5 {MCG/MG CRE} <=30.0 [facility]2018-01-14 08:53:00* Test Item Value Reference Range Interpretation Comments Glucose POC Lifescan (test code = Glucose POC Lifescan) 130 [facility][O] Hemoglobin A1c (in office)2018-01-14 08:52:00 * Test Item Value Reference Range Interpretation Comments HEMOGLOBIN A1c (test code = 4548-4) 6.7 [facility][] HSV 1/2 IGG, HERPESELECT TYPE SPECIFIC AB 2017 09:47:00* Test Item Value Reference Range Interpretation Comments HSV 1 IgG, Type Spec (test code = HSV 1 IgG, Type Spec) 32.40 {i ndex} 0.00-0.90 Negative <0.91 Equivocal 0.91 - 1.09 Positive >1.09 Note: Negative indicates no antibodies detected to HSV-1. Equivocal may suggest early infection. If clinically appropriate, retest at later date. 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 HSV 2 IgG, Type Spec (test code = HSV 2 IgG, Type Spec) 16.80 {i ndex} 0.00-0.90 Negative <0.91 Equivocal 0.91 - 1.09 Positive >1.09 Note: Negative indicates no antibodies detected to HSV-2. Equivocal may suggest early infection. If clinically appropriate, retest at later date. Positive indicates antibodies detected to HSV-2. [facility][L] HIV 1/O/2 Antigen/Antibody Fourth Generation Preliminary Test with [place] to Supplementary [id number] 09:47:00* Test Item Value Reference Range Interpretation Comments HIV Screen 4th Generation wRfx (test code = 69808-2) Non Reactiv e Non Reactive [facility]] [id number] 09:47:00* Test Item Value Reference Range Interpretation Comments RPR (test code = 51786-0) Non Reactive Non Reactive [facility][O] Urine Dipstick (In Office)2017-12-17 15:01:00 * Test Item Value Reference Range Interpretation Comments LEUKOCYTES (test code = LEUKOCYTES) ++ NITRITE; Normal (test code = 09068-8) neg N UROBILINOGEN (test code = 12511-3) 1 PROTEIN; Normal (test code = 75160-0) neg N pH (test code = pH) 5 URINE BLOOD (test code = 37362-0) about 50 SPECIFIC GRAVITY (test code = 2965-2) 1.015 KETONES; Normal (test code = 75738-7) neg N BILIRUBIN; Normal (test code = 26565-8) neg N GLUCOSE (test code = 1547-9) 1000 mg/dL COLOR URINE; Normal (test code = 5778-6) yellow N APPEARANCE (test code = 5767-9) cloudy [facility] (Diabetic)2017-12-17 05:00:00* Test Item Value Reference Range Interpretation Comments Negative Diabetic Eye Screening (test code = Negative Diabetic Eye Screening) [id number] [facility]] CULTURE, URINE, [id number] 00:00:00* Test Item Value Reference Range Interpretation Comments Urine Culture, Routine (test code = 630-4) Final report Result 1 (test code = Result 1) No growth [facility][O] Urine Dipstick (In Office)2017-12-13 15:03:00 * Test Item Value Reference Range Interpretation Comments LEUKOCYTES (test code = LEUKOCYTES) ++ A NITRITE; Normal (test code = 52504-3) negative N UROBILINOGEN; Normal (test code = 96218-2) negative N PROTEIN (test code = 90533-6) trace pH (test code = pH) 6 N URINE BLOOD; Abnormal (test code = 02778-2) ~50 A SPECIFIC GRAVITY; Normal (test code = 2965-2) 1.005 N KETONES; Normal (test code = 71507-3) negative N BILIRUBIN; Normal (test code = 87819-9) negative N GLUCOSE; Abnormal (test code = 1547-9) ~1000 A COLOR URINE; Abnormal (test code = 5778-6) pale yellow A APPEARANCE; Abnormal (test code = 5767-9) cloudy A [facility][L] Ct Ng TV HSV by [id number] 00:00:00* Test Item Value Reference Range Interpretation Comments Chlamydia by JONNATHAN (test code = 53584-7) Negative Negative Gonococcus by JONNATHAN (test code = 50270-9) Negative Negative Trich vag by JONNATHAN (test code = 85623-6) Negative Negative HSV 1 JONNATHAN (test code = HSV 1 JONNATHAN) Negative Negative HSV 2 JONNATHAN (test code = HSV 2 JONNATHAN) Positive Negative A [facility][L] NuSwab BV and Wen, [id number] 00:00:00 * Test Item Value Reference Range Interpretation Comments Atopobium vaginae (test code = 60970-0) Low - 0 BVAB 2 (test code = 38420-8) Low - 0 Megasphaera 1 (test code = 27398-3) Low - 0 Calculate total score by adding the 3 individual bacterialvaginosis (BV) marker scores together. Total score isinterpreted as follows:Total score 0-1: Indicates the absence of BV.Total score 2: Indeterminate for BV. Additional clinical data should be evaluated to establish a diagnosis.Total score 3-6: Indicates the presence of BV. .This test was developed and its performance characteristicsdetermined by [facility]. It has not been cleared or approvedby the Food and Drug Administration. The FDA has determinedthat such clearance or approval is not necessary. Wen albicans, JONNATHAN; Abnormal (test code = 13790-6) Positive Negative A Wen glabrata, JONNATHAN (test code = 32185-0) Negative Negative This test was developed and its performance characteristics determinedby [facility]. It has not been cleared or approved by the Food and DrugAdministration. The FDA has determined that such clearance orapproval is not necessary. [facility]] CBC (INCLUDES DIFF/PLT)2017-11-26 12:10:01* Test Item Value Reference Range Interpretation Comments WBC (test code = 6690-2) 7.9 {K/CMM} 3.7-10.4 RBC; Below Low Threshold (test code = 789-8) 3.49 {M/CMM} 4.20-5.40 Hgb (test code = 61752-6) 12.3 g/dl 12.0-16.0 Hct (test code = 4544-3) 36.2 % 36.0-48.0 MCV; Above High Threshold (test code = 787-2) 103.8 fL 80.0-98. 0 MCH; Above High Threshold (test code = 785-6) 35.4 pg 27.0-31. 0 MCHC (test code = 786-4) 34.1 g/dl 32.0-36.0 RDW; Above High Threshold (test code = 788-0) 14.9 % 11.5-14. 5 Platelet (test code = 777-3) 268 {K/CMM} 133-450 Mean Platelet Volume (test code = 31909-6) 8.2 fL 7.4-10.4 Hgb (test code = 718-7) 12.3 g/dl 12.0-16.0 Hct (test code = 79447-8) 36.2 % 36.0-48.0 Platelet (test code = 41026-7) 268 {K/CMM} 133-450 [facility]] [id number] 12:10:01* Test Item Value Reference Range Interpretation Comments Segmented Neutrophils; Above High Threshold (test code = 304 51-9) 84.2 % 45.0-75.0 Monocytes # (test code = 44575-3) 0.3 {K/CMM} 0.0-0.8 Lymphocytes; Below Low Threshold (test code = 75247-0) 9.9 % 20.0-40.0 Eosinophils # (test code = 65541-2) 0.1 {K/CMM} 0.0-0.5 Basophils (test code = 58110-9) 0.6 % 0.0-1.0 Segs-Bands # (test code = 42339-2) 6.6 {K/CMM} 1.5-8.1 Lymphocytes #; Below Low Threshold (test code = 45988-0) 0.8 {K/CMM } 1.0-5.5 Segmented Neutrophils; Above High Threshold (test code = 265 05-8) 84.2 % 45.0-75.0 Monocytes (test code = 12057-7) 4.3 % 2.0-12.0 Eosinophils (test code = 76332-0) 1.0 % 0.0-4.0 Basophils (test code = 706-2) 0.6 % 0.0-1.0 Segs-Bands # (test code = 51112-1) 6.6 {K/CMM} 1.5-8.1 Lymphocytes #; Below Low Threshold (test code = 51192-6) 0.8 {K/CMM } 1.0-5.5 [facility]] SED RATE BY MODIFIED [id number] 12:10:01* Test Item Value Reference Range Interpretation Comments Sedimentation Rate; Above High Threshold (test code = 27502-5) 3 8 {mm/hr} 0-20 [facility]] C-REACTIVE [id number] 12:10:01* Test Item Value Reference Range Interpretation Comments CRP (test code = CRP) 8.1 mg/L <=2.9 [facility]] CMP [id number] 12:10:01* Test Item Value Reference Range Interpretation Comments Sodium Level (test code = 2951-2) 139 {mEq/l} 135-145 Potassium Level (test code = 2823-3) 4.0 {mEq/l} 3.5-5.1 Chloride Level (test code = 2075-0) 104 {mEq/l} 95-109 Carbon Dioxide (test code = 2027-9) 26 {mEq/l} 24-32 AGAP (test code = 88207-9) 13.0 {mEq/l} 10.0-20.0 Glucose Lvl; Above High Threshold (test code = 2345-7) 186 mg/dl 70-99 Adult reference range values reflect the clinical guidelinesof the [place] [employer]. Creatinine Lvl (test code = 2160-0) 1.10 mg/dl 0.50-1.40 Blood Urea Nitrogen; Above High Threshold (test code = 3094-0) 30 m g/dl 7-22 BUN/Creatinine Ratio; Above High Threshold (test code = 3097-3) 27 6-25 Total Protein (test code = 93242-8) 7.3 g/dl 6.4-8.4 Albumin Lvl (test code = 1751-7) 4.1 g/dl 3.5-5.0 Globulin (test code = 57799-5) 3.2 g/dl 2.7-4.2 A/G Ratio (test code = 1759-0) 1.3 0.7-1.6 Calcium Level Total (test code = 54832-3) 9.1 mg/dl 8.5-10.5 ALT (test code = 1742-6) 28 u/l 0-65 AST (test code = 1916-6) 22 u/l 0-37 Bili Total (test code = 46483-0) 0.4 mg/dl 0.2-1.3 Alk Phos (test code = 1783-0) 78 u/l 39-136 eGFR (test code = 66595-5) 49 {ML/MIN/1.7} The eGFR is calculated using the CKD-EPI formula. In most young, healthyindividuals the eGFR will be >90 mL/min/1.73m2. The eGFR declines with age. AneGFR of 60-89 may be normal in some populations, particularly the elderly, forwhom the CKD-EPI formula has not been extensively validated. Use of the eGFR isnot recommended in the following populations:Individuals with unstable creatinine concentrations, including patients and those with serious co-morbid conditions.Patients with extremes in muscle mass or diet.The data above are obtained from the National Kidney Disease Education Program(NKDEP) which additionally recommends that when the eGFR is used in patientswith extremes of body mass index for purposes of drug dosing, the eGFR shouldbe multiplied by the estimated BMI. Total Protein (test code = 2885-2) 7.3 g/dl 6.4-8.4 ALT (test code = 1743-4) 28 u/l 0-65 AST (test code = 19937-7) 22 u/l 0-37 Bili Total (test code = 1975-2) 0.4 mg/dl 0.2-1.3 [facility]] VITAMIN [id number] 09:44:01* Test Item Value Reference Range Interpretation Comments Vitamin B12 Level (test code = Vitamin B12 Level) 214 pg/ml 254- 1320 [facility][O] Lipid Panel (In Office)2017-10-15 08:59:00* Test Item Value Reference Range Interpretation Comments CHOLESTEROL, TOTAL (test code = 2093-3) 117 HDL CHOLESTEROL (test code = 2085-9) 42 TRIGLYCERIDES (test code = 2571-8) 159 LDL-CHOLESTEROL (test code = 56329-1) 44 NON HDL CHOLESTEROL (test code = NON HDL CHOLESTEROL) 75 T. Chol/HDL Ratio (test code = 9830-1) 2.8 GLUCOSE (test code = 1547-9) 136 [facility]2017-10-15 08:58:00* Test Item Value Reference Range Interpretation Comments Glucose POC Lifescan (test code = Glucose POC Lifescan) 141 [facility][O] Hemoglobin A1c (in office)2017-10-15 08:58:00 * Test Item Value Reference Range Interpretation Comments HEMOGLOBIN A1c (test code = 4548-4) 6.8 [facility]] CBC (INCLUDES DIFF/PLT)2017-08-27 15:47:01* Test Item Value Reference Range Interpretation Comments WBC (test code = WBC) 6.0 {K/CMM} 3.7-10.4 RBC (test code = RBC) 3.40 {M/CMM} 4.20-5.40 Hgb; Below Low Threshold (test code = 01193-1) 11.7 g/dl 12.0-16 .0 Hct; Below Low Threshold (test code = 4544-3) 34.8 % 36.0-48. 0 MCV (test code = MCV) 102.5 fL 80.0-98.0 MCH (test code = MCH) 34.4 pg 27.0-31.0 MCHC (test code = MCHC) 33.6 g/dl 32.0-36.0 RDW (test code = RDW) 14.2 % 11.5-14.5 Platelet (test code = 777-3) 233 {K/CMM} 133-450 Mean Platelet Volume (test code = Mean Platelet Volume) 8.1 fL 7.4-10.4 [facility]] [id number] 15:47:01* Test Item Value Reference Range Interpretation Comments Segmented Neutrophils (test code = 40214-8) 62.0 % 45.0-75.0 Monocytes # (test code = 08385-3) 0.5 {K/CMM} 0.0-0.8 Lymphocytes (test code = Lymphocytes) 25.2 % 20.0-40.0 Eosinophils # (test code = 71650-9) 0.2 {K/CMM} 0.0-0.5 Basophils # (test code = 49990-7) 0.1 {K/CMM} 0.0-0.2 Segs-Bands # (test code = 16074-7) 3.7 {K/CMM} 1.5-8.1 Lymphocytes # (test code = 37982-5) 1.5 {K/CMM} 1.0-5.5 [facility]] CMP [id number] 15:47:01* Test Item Value Reference Range Interpretation Comments Sodium Level (test code = Sodium Level) 140 {mEq/l} 135-145 Potassium Level (test code = Potassium Level) 3.9 {mEq/l} 3.5-5.1 Chloride Level (test code = Chloride Level) 104 {mEq/l} 95-109 Carbon Dioxide (test code = Carbon Dioxide) 30 {mEq/l} 24-32 AGAP (test code = AGAP) 9.9 {mEq/l} 10.0-20.0 Glucose Lvl (test code = Glucose Lvl) 125 mg/dl 70-99 Adult reference range values reflect the clinical guidelinesof the [place] [employer]. Creatinine Lvl (test code = Creatinine Lvl) 1.00 mg/dl 0.50-1.40 Blood Urea Nitrogen (test code = Blood Urea Nitrogen) 24 mg/dl 7-22 BUN/Creatinine Ratio (test code = BUN/Creatinine Ratio) 24 6-25 Total Protein (test code = 48122-4) 7.3 g/dl 6.4-8.4 Albumin Lvl (test code = 1751-7) 3.8 g/dl 3.5-5.0 Globulin (test code = Globulin) 3.5 g/dl 2.7-4.2 A/G Ratio (test code = A/G Ratio) 1.1 0.7-1.6 Calcium Level Total (test code = Calcium Level Total) 8.8 mg/dl 8.5-10.5 ALT (test code = 1742-6) 27 u/l 0-65 AST (test code = 1916-6) 17 u/l 0-37 Bili Total (test code = 79919-3) 0.4 mg/dl 0.2-1.3 Alk Phos (test code = 1783-0) 110 u/l 39-136 eGFR (test code = eGFR) 55 {ML/MIN/1.7} T he eGFR is calculated using the CKD-EPI formula. In most young, healthyindividuals the eGFR will be >90 mL/min/1.73m2. The eGFR declines with age. AneGFR of 60-89 may be normal in some populations, particularly the elderly, forwhom the CKD-EPI formula has not been extensively validated. Use of the eGFR isnot recommended in the following populations:Individuals with unstable creatinine concentrations, including patients and those with serious co-morbid conditions.Patients with extremes in muscle mass or diet.The data above are obtained from the National Kidney Disease Education Program(NKDEP) which additionally recommends that when the eGFR is used in patientswith extremes of body mass index for purposes of drug dosing, the eGFR shouldbe multiplied by the estimated BMI. [facility]] C-REACTIVE [id number] 15:47:01* Test Item Value Reference Range Interpretation Comments CRP (test code = CRP) 16.5 mg/L <=2.9 [facility]] SED RATE BY MODIFIED [id number] 15:47:01* Test Item Value Reference Range Interpretation Comments Sedimentation Rate (test code = Sedimentation Rate) 50 {mm/hr} 0- 20 [facility]] VITAMIN D, 25-HYDROXY, [id number]/MS/[id number] 15:47:01* Test Item Value Reference Range Interpretation Comments Vitamin D, 25-OH, Total (test code = Vitamin D, 25-OH, Total ) 30.3 ng/ml 30.0-100.0 Reference range is based on recommendations in the [employer]Society Clinical Practice Guideline (J Clin Endocrinol [id number];96:4180-1145) [facility]icians[facility]obacco Use [id number] 18:30:00* Test Item Value Reference Range Interpretation Comments Completed (test code = Completed) DONE [facility]2017-07-09 09:11:00* Test Item Value Reference Range Interpretation Comments Glucose POC Lifescan (test code = Glucose POC Lifescan) 105 [facility][O] Lipid Panel (In Office)2017-07-09 09:10:00* Test Item Value Reference Range Interpretation Comments CHOLESTEROL, TOTAL (test code = 2093-3) 194 HDL CHOLESTEROL (test code = 2085-9) 41 TRIGLYCERIDES (test code = 2571-8) 269 LDL-CHOLESTEROL (test code = 75248-0) 99 NON HDL CHOLESTEROL (test code = NON HDL CHOLESTEROL) 153 T. Chol/HDL Ratio (test code = 9830-1) 4.7 GLUCOSE (test code = 1547-9) 117 [facility][O] Hemoglobin A1c (in office)2017-07-09 09:10:00 * Test Item Value Reference Range Interpretation Comments HEMOGLOBIN A1c (test code = 4548-4) 7.1 [facility]] CBC (INCLUDES DIFF/PLT)2017-06-25 16:51:01* Test Item Value Reference Range Interpretation Comments WBC (test code = WBC) 6.7 {K/CMM} 3.7-10.4 RBC (test code = RBC) 3.46 {M/CMM} 4.20-5.40 Hgb (test code = 57070-8) 12.0 g/dl 12.0-16.0 Hct; Below Low Threshold (test code = 4544-3) 34.6 % 36.0-48. 0 MCV (test code = MCV) 99.8 fL 80.0-98.0 MCH (test code = MCH) 34.6 pg 27.0-31.0 MCHC (test code = MCHC) 34.7 g/dl 32.0-36.0 RDW (test code = RDW) 13.8 % 11.5-14.5 Platelet (test code = 777-3) 265 {K/CMM} 133-450 Mean Platelet Volume (test code = Mean Platelet Volume) 7.8 fL 7.4-10.4 [facility]] [id number] 16:51:01* Test Item Value Reference Range Interpretation Comments Segmented Neutrophils (test code = 75910-9) 59.2 % 45.0-75.0 Monocytes # (test code = 21429-8) 0.7 {K/CMM} 0.0-0.8 Lymphocytes (test code = Lymphocytes) 24.1 % 20.0-40.0 Eosinophils # (test code = 95865-8) 0.4 {K/CMM} 0.0-0.5 Basophils # (test code = 18303-8) 0.1 {K/CMM} 0.0-0.2 Segs-Bands # (test code = 64456-8) 4.0 {K/CMM} 1.5-8.1 Lymphocytes # (test code = 31387-7) 1.6 {K/CMM} 1.0-5.5 [facility]] SED RATE BY MODIFIED [id number] 16:51:01* Test Item Value Reference Range Interpretation Comments Sedimentation Rate (test code = Sedimentation Rate) 51 {mm/hr} 0- 20 [facility]] CMP [id number] 16:51:01* Test Item Value Reference Range Interpretation Comments Sodium Level (test code = Sodium Level) 137 {mEq/l} 135-145 Potassium Level (test code = Potassium Level) 4.3 {mEq/l} 3.5-5.1 Chloride Level (test code = Chloride Level) 102 {mEq/l} 95-109 Carbon Dioxide (test code = Carbon Dioxide) 30 {mEq/l} 24-32 AGAP (test code = AGAP) 9.3 {mEq/l} 10.0-20.0 Glucose Lvl (test code = Glucose Lvl) 119 mg/dl 70-99 Adult reference range values reflect the clinical guidelinesof the [place] [employer]. Creatinine Lvl (test code = Creatinine Lvl) 0.90 mg/dl 0.50-1.40 Blood Urea Nitrogen (test code = Blood Urea Nitrogen) 22 mg/dl 7-22 BUN/Creatinine Ratio (test code = BUN/Creatinine Ratio) 24 6-25 Total Protein (test code = 24561-6) 7.7 g/dl 6.4-8.4 Albumin Lvl (test code = 1751-7) 4.0 g/dl 3.5-5.0 Globulin (test code = Globulin) 3.7 g/dl 2.7-4.2 A/G Ratio (test code = A/G Ratio) 1.1 0.7-1.6 Calcium Level Total (test code = Calcium Level Total) 8.9 mg/dl 8.5-10.5 ALT (test code = 1742-6) 26 u/l 0-65 AST (test code = 1916-6) 19 u/l 0-37 Bili Total (test code = 74864-9) 0.5 mg/dl 0.2-1.3 Alk Phos (test code = 1783-0) 107 u/l 39-136 eGFR (test code = eGFR) 62 {ML/MIN/1.7} T he eGFR is calculated using the CKD-EPI formula. In most young, healthyindividuals the eGFR will be >90 mL/min/1.73m2. The eGFR declines with age. AneGFR of 60-89 may be normal in some populations, particularly the elderly, forwhom the CKD-EPI formula has not been extensively validated. Use of the eGFR isnot recommended in the following populations:Individuals with unstable creatinine concentrations, including patients and those with serious co-morbid conditions.Patients with extremes in muscle mass or diet.The data above are obtained from the National Kidney Disease Education Program(NKDEP) which additionally recommends that when the eGFR is used in patientswith extremes of body mass index for purposes of drug dosing, the eGFR shouldbe multiplied by the estimated BMI. [facility]] PHOSPHATE ( PHOSPHORUS)2017-06-25 16:51:01 * Test Item Value Reference Range Interpretation Comments Phosphorus Level (test code = Phosphorus Level) 3.5 mg/dl 2.5-4. 5 [facility]] C-REACTIVE [id number] 16:51:01* Test Item Value Reference Range Interpretation Comments CRP (test code = CRP) 8.5 mg/L <=2.9 [facility]] VITAMIN D, 25-HYDROXY, LC/MS/[id number] 16:51:01* Test Item Value Reference Range Interpretation Comments Vitamin D, 25-OH, Total (test code = Vitamin D, 25-OH, Total ) 17.9 ng/ml 30.0-100.0 Reference range is based on recommendations in the [employer] Clinical Practice Guideline (J Clin Endocrinol [id number];96:7546-3225) [facility]
[2020-04-17] MEDS ORDERED: PANTOPRAZOLE 40 MG 10ML VIAL IV ONE (16:00)
[2020-04-17] MEDS ORDERED: SODIUM CHLORIDE 0.9% 1000ML 1,000 ML IV STA (16:00)
--- NOTE | 2020-04-17 16:00 | NUR ---
Incontinence care provided for urine and feces for patient. Patient provided with clean linens, gown, purick placed on patient with adult brief.
[2020-04-17 16:15] LABS: BASOPHILS # (AUTO) 0.1 (0.0-0.1); BASOPHILS % 0.3 % (0.0-1.0); EOSINOPHILS # (AUTO) 2.5 (0.0-0.4); EOSINOPHILS % 8.5 % (0.0-6.0); HEMATOCRIT 39.5 % (34.2-44.1); HEMOGLOBIN 12.4 g/dL (12.0-16.0); LYMPHOCYTES # (AUTO) 0.5 (1.0-3.2); LYMPHOCYTES % 1.6 % (18.0-39.1); MEAN CORPUSCULAR HEMOGLOBIN 32.7 pg (28-32); MEAN CORPUSCULAR HGB CONC 31.4 g/dL (31-35); MEAN CORPUSCULAR VOLUME 104.2 fL (81-99); MONOCYTES # (AUTO) 1.7 (0.2-0.8); MONOCYTES % 5.8 % (4.4-11.3); NEUTROPHILS % 82.3 % (38.7-80.0); PLATELET COUNT 269 x10e3/uL (140-360); RED BLOOD COUNT 3.79 x10e6/uL (3.6-5.1); RED CELL DISTRIBUTION WIDTH 13.9 % (11.7-14.4)
--- NOTE | 2020-04-17 16:21 | NUR ---
Patients clothing disposed due to being soiled with urine and feces.
[2020-04-17 16:31] LABS: INR 1.16; PROTHROMBIN TIME 15.4 seconds (11.9-14.5)
[2020-04-17 16:32] LABS: PARTIAL THROMBOPLASTIN TIME 36.4 seconds (23.8-35.5)
[2020-04-17 16:47] LABS: CREATINE KINASE MB 21.6 ng/mL (0-5.0)
[2020-04-17 16:52] LABS: ALBUMIN 3.6 g/dL (3.5-5.0); ALBUMIN/GLOBULIN RATIO 0.9 (0.8-2.0); ANION GAP 23.5 mmol/L (8-16); CALCIUM 9.6 mg/dL (8.4-10.2); CREATININE, SERUM 1.68 mg/dL (0.57-1.11); MAGNESIUM 2.3 MG/DL (1.3-2.1); POTASSIUM 4.5 mmol/L (3.5-5.1)
--- NOTE | 2020-04-17 17:19 | Diagnostic Imaging Report ---
Exam: Head CT without contrast History: Syncope, trauma, fall Comparison studies: None Technique: Axial images were obtained from the skull base to the vertex. Coronal and sagittal images reconstructed from the axial data. Dose modulation, iterative reconstruction, and/or weight based adjustment of the mA/kV was utilized to reduce the radiation dose to as low as reasonably achievable. Radiation dose: Total DLP: 1346.63 mGy*cm. Estimated effective dose: DLP x 0.015 Intravenous contrast: None Findings: Scalp: Left frontal scalp swelling is without associated subcutaneous emphysema. No retained hyperdense foreign body. Bones: No fractures, blastic or lytic lesions. Brain sulci: Mildly prominent. Ventricles: Normal in size and configuration. No hydrocephalus. Extra-axial spaces: No masses, no fluid collection. Parenchyma: No mass, acute hemorrhage or acute or chronic cortical insults. Sellar/suprasellar region: No abnormalities. Craniocervical junction: Patent foramen magnum. No Chiari one malformation. Incidental findings: Bilateral intraocular lens replacements. Atherosclerotic calcifications in the carotid siphons.. IMPRESSION: 1. Left frontal scalp swelling without underlying fracture. 2. No acute intracranial abnormalities. 3. Mild generalized parenchymal volume loss Signed by: Dr. Darrel Macias M.D. on 04/17/2020 5:16 PM
--- NOTE | 2020-04-17 17:27 | Diagnostic Imaging Report ---
PELVIS AP 1-2 VIEWS - 3 views HISTORY: Pain status post fall. COMPARISON: None available. FINDINGS: Bones: No acute displaced fracture. Osseous alignment is within normal limits. Joints: There are degenerative changes of SI and hip joints. Soft tissues: Vascular calcifications. IMPRESSION: No acute radiographic abnormality. Signed by: Dr. Osorio Pratt M.D. on 04/17/2020 5:23 PM
--- NOTE | 2020-04-17 17:28 | Diagnostic Imaging Report ---
History: Trauma, fall, syncope Comparison studies: None Technique: Axial images were obtained through the cervical region. Coronal and sagittal images reconstructed from the axial data. Dose modulation, iterative reconstruction, and/or weight based adjustment of the mA/kV was utilized to reduce the radiation dose to as low as reasonably achievable. Intravenous contrast: None Findings: Atlantoaxial articulation: Intact. Alignment: Normal lordosis. No scoliosis. Cervicomedullary junction: No abnormalities. The foramen magnum is patent. Soft tissues: No gross acute abnormalities. Postsurgical changes: Prior anterior cervical discectomy and fusion (ACDF) from C3 through C7 solid interbody fusion without evidence of hardware failure or hardware loosening Vertebrae: No fractures, infection or neoplasm. Degenerative changes: Mildly degenerated C2-C3 disc and moderately degenerated C7-T1 disc adjacent to the levels of fusion. Mildly degenerated T1-T2 and T2-T3 discs. At least mild canal stenosis at C6-C7 due to a posterior osteophyte complex. Multilevel uncovertebral and facet arthrosis with moderate bilateral foraminal stenosis at C5-C6 and mild foraminal stenosis on the left at C6-C7. IMPRESSION: 1. No cervical spine fracture or subluxation. 2. Surgical changes of prior C3-C7 ACDF. 3. Degenerative changes as described. 4. Ligament, spinal cord and or vascular abnormalities cannot be excluded on the basis of this examination Signed by: Dr. Darrel Macias M.D. on 04/17/2020 5:24 PM
--- NOTE | 2020-04-17 17:28 | Diagnostic Imaging Report ---
EXAMINATION: CHEST SINGLE (NOT PORTABLE) INDICATION: Fall status post syncope. COMPARISON: None FINDINGS: TUBES and LINES: None. LUNGS: Lungs are well inflated. There are bibasilar atelectasis. There is no evidence of pneumonia or pulmonary edema. PLEURA: No pleural effusion or pneumothorax. HEART AND MEDIASTINUM: The cardiomediastinal silhouette is unremarkable. BONES AND SOFT TISSUES: No cervical fusion. UPPER ABDOMEN: No free air under the diaphragm. IMPRESSION: Bibasilar atelectasis. Signed by: Dr. Osorio Pratt M.D. on 04/17/2020 5:24 PM
--- NOTE | 2020-04-17 17:55 | NUR ---
Marci Leonard (daughter)[phone].
[2020-04-17] MEDS: CEFTRIAXONE SOD 1 GM/NS 50 ML 50 ML IV SCH (18:34)
--- NOTE | 2020-04-17 19:12 | Emergency Department Note ---
History of Present Illnes History of Present Illness Chief Complaint: Neurological History of Present Illness This is a 79 year old female per ems pt had syncopal episode 2 days ago at home fell forward states she did not hit head not on blood thinners stayed on floor for 2 days unable to get up daughter called 911 for wellness check and pt found on floor denies all other complaints at this time. Historian: Patient, Qu[facility]/EMS Arrival Mode: [place] [employer] Required: No Onset (how long ago): day(s) (2) Radiation: Reports non-radiation Severity: moderate Onset quality: sudden Chronicity: new Context: Denies recent illness Relieving factors: none Exacerbating factors: none Associated symptoms: Reports weakness Treatments prior to arrival: none Past Medical/Family History Physician Review I have reviewed the patient's past medical and family history. Any updates have been documented here. Past Medical History Recent Fever: No Clinical Suspicion of Infectio: No New/Unexplained Change in Ment: No Past Medical History: Diabetes, Hypothyroidism Past Surgical History: Cholecysctectomy, Hysterectomy Other Surgery: THYROIDECTOMY SPINAL SURGERY Social History Smoking Cessation: Never Smoker Counseling Performed: No Alcohol Use: None Any Illegal Drug Use: No TB Exposure/Symptoms: No Physically hurt or threatened: No Family History Family history of heart diseas: No Other Last Tetanus: N Any Pre-Existing Lines (PICC,: No Review of Systems Review of Systems Constitutional: Reports weakness EENTM: Reports no symptoms Cardiovascular: Reports syncope Respiratory: Reports no symptoms Gastrointestinal: Reports no symptoms Genitourinary: Reports no symptoms Musculoskeletal: Reports no symptoms Integumentary: Reports no symptoms Neurological: Reports no symptoms Psychological: Reports no symptoms Endocrine: Reports no symptoms Hematological/Lymphatic: Reports no symptoms Physical Exam Related Data Allergies: Coded Allergies: Penicillins (Verified Allergy, Unknown, 09/28/09) Triage Vital Signs Vital Signs Date Time Temp Pulse Resp B/P (MAP) Pulse Ox O2 Delivery O2 Flow Rate FiO2 04/17/20 15:33 97.8 63 18 136/87 100 Room Air Vital signs reviewed: Yes Physical Exam CONSTITUTIONAL Constitutional: Present well-developed, Present well-nourished HENT HENT: Present normocephalic, Present atraumatic, Present oropharynx clear/moist, Present nose normal HENT L/R: Present left ext ear normal, Present right ext ear normal EYES Eyes: Reports PERRL, Reports conjunctivae normal NECK Neck: Present ROM normal PULMONARY Pulmonary: Present effort normal, Present breath sounds normal CARDIOVASCULAR Cardiovascular: Present regular rhythm, Present heart sounds normal, Present capillary refill normal, Present normal rate GASTROINTESTINAL Abdominal: Present soft, Present nontender, Present bowel sounds normal GENITOURINARY Genitourinary: Present exam deferred SKIN Skin: Present warm, Present dry MUSCULOSKELETAL Musculoskeletal: Present other (ABRASION TO R GREAT TOE, MULTIPLE AREAS OF STAGE 1 PRESSURE) NEUROLOGICAL Neurological: Present alert, Present oriented x 3, Present no gross motor or sensory deficits PSYCHOLOGICAL Psychological: Present mood/affect normal, Present judgement normal Results Laboratory Result Diagram: 04/17/20 1550 04/17/20 1550 Laboratory Laboratory Tests Test 04/17/20 17:53 04/17/20 15:50 White Blood Count 29.15 x10e3/uL (4.8-10.8) Red Blood Count 3.79 x10e6/uL (3.6-5.1) Hemoglobin 12.4 g/dL (12.0-16.0) Hematocrit 39.5 % (34.2-44.1) Mean Corpuscular Volume 104.2 fL (81-99) Mean Corpuscular Hemoglobin 32.7 pg (28-32) Mean Corpuscular Hemoglobin Concent 31.4 g/dL (31-35) Red Cell Distribution Width 13.9 % (11.7-14.4) Platelet Count 269 x10e3/uL (140-360) Neutrophils (%) (Auto) 82.3 % (38.7-80.0) Lymphocytes (%) (Auto) 1.6 % (18.0-39.1) Monocytes (%) (Auto) 5.8 % (4.4-11.3) Eosinophils (%) (Auto) 8.5 % (0.0-6.0) Basophils (%) (Auto) 0.3 % (0.0-1.0) Neutrophils # (Auto) 24.0 (2.1-6.9) Lymphocytes # (Auto) 0.5 (1.0-3.2) Monocytes # (Auto) 1.7 (0.2-0.8) Eosinophils # (Auto) 2.5 (0.0-0.4) Basophils # (Auto) 0.1 (0.0-0.1) Absolute Immature Granulocyte (auto 0.44 x10e3/uL (0-0.1) Prothrombin Time 15.4 seconds (11.9-14.5) Prothromb Time International Ratio 1.16 Activated Partial Thromboplast Time 36.4 seconds (23.8-35.5) Sodium Level 144 mmol/L (136-145) Potassium Level 4.5 mmol/L (3.5-5.1) Chloride Level 106 mmol/L (98-107) Carbon Dioxide Level 19 mmol/L (22-29) Anion Gap 23.5 mmol/L (8-16) Blood Urea Nitrogen 71 mg/dL (7-26) Creatinine 1.68 mg/dL (0.57-1.11) Estimat Glomerular Filtration Rate 29 ML/MIN (60-) BUN/Creatinine Ratio 42 (6-25) Glucose Level 261 mg/dL (74-118) Calcium Level 9.6 mg/dL (8.4-10.2) Magnesium Level 2.3 MG/DL (1.3-2.1) Total Bilirubin 2.3 mg/dL (0.2-1.2) Aspartate Amino Transf (AST/SGOT) 131 IU/L (5-34) Alanine Aminotransferase (ALT/SGPT) 65 IU/L (0-55) Alkaline Phosphatase 123 IU/L (40-150) Creatine Kinase 5869 IU/L (29-168) Creatine Kinase MB 21.60 ng/mL (0-5.0) Troponin I 0.177 ng/mL (0-0.300) B-Type Natriuretic Peptide 196.0 pg/mL (0-100) Total Protein 7.8 g/dL (6.5-8.1) Albumin 3.6 g/dL (3.5-5.0) Globulin 4.2 g/dL (2.3-3.5) Albumin/Globulin Ratio 0.9 (0.8-2.0) Lab results reviewed: Yes Imaging Imaging results reviewed: Yes Procedures 12 Lead ECG Interpretation ECG Interpretation : ECG: ECG 1 Waste Hand: Interpreted by ED physician Date: Apr 17, 2020 Time: 15:48 Rhythm: sinus rhythm Ectopy: atrial premature contractions Rate: normal (87) QRS axis: normal ST segments normal: Yes T waves normal: Yes Clinical Impression: normal ECG Critical Care Time Total Critical Care Time (min): 30 Critical care time exclusive o: separately billable procedures Critcal care necessary due to: dehydration, renal failure Critcal care time spent by me: discussion w primary provider, evaluation patient response to tx, order/perform tx or interventions, order/review laboratory studies, order/review radiographic studies, re-evaluation of patient condition Assessment & Plan Medical Decision Making MDM SYNCOPE 2 DAYS AGO, COULDN'T GET OFF FLOOR - CBC, CHEM, ECG, CARDIACS, UA/CX, BLOOD CX'S, CXR, CT HEAD/C-SPINE, PELVIS XRAY - R/O STEMI/NSTEMI, RHABDOMYOLYSIS, UTI, RENAL FAILURE, CVA, CEREBRAL BLEED, CERV FX Reassessment Reassessment ADMIT TO DR PALMA Assessment & Plan Final Impression: (1) Rhabdomyolysis (2) Renal insufficiency (3) Syncope (4) Leukocytosis Depart Disposition: ADMITTED Last Vital Signs Date Time Temp Pulse Resp B/P (MAP) Pulse Ox O2 Delivery O2 Flow Rate FiO2 04/17/20 18:24 90 22 119/69 99 Room Air 04/17/20 15:33 97.8 Home Meds Reported Medications [symbicort inhaler] No Conflict Check 08/04/13 [sudafed] No Conflict Check 08/04/13 [aleve] No Conflict Check 08/04/13 Acetaminophen (TYLENOL EXTRA STRENGTH) 500 Mg Tablet, 1 - 2 TAB PO PRN 05/06/13 Calcium Carbonate (TUMS) 200 Mg Tab.chew, 2 TAB PO PRN 05/06/13 Cyclobenzaprine Hcl (FLEXERIL) 5 Mg Tablet, 5 MG PO BEDTIME PRN 05/05/13 Losartan/Hydrochlorothiazide (LOSARTAN-HCTZ 50-12.5 MG TAB) 1 Each Tablet, PO BID 05/05/13 [metformin/glyburide] No Conflict Check, 5 - 500 PO, #1 05/05/13 Cetirizine Hcl (ZYRTEC) 10 Mg Capsule, D 05/05/13 [Tramadol] No Conflict Check, 50 MG PO PRN, #1 q 12 H, PRN pain 05/05/13 [Levothyroxine] No Conflict Check, 100 MCG PO DAILY for 30 Days before meals 05/05/13 Medications in the ED Pantoprazole Sodium 40 mg ONCE ONCE IV Last administered on 04/17/20at 17:55; Admin Dose 40 MG; Start 04/17/20 at 16:00; Stop 04/17/20 at 16:01 Sodium Chloride 1,000 ml @ 0 mls/hr Q0M STAT IV Last administered on 04/17/20at 17:50; Admin Dose 999 MLS/HR; Start 04/17/20 at 16:00; Stop 04/17/20 at 16:01 Ceftriaxone Sodium 50 ml @ 100 mls/hr Q12H IV Last administered on 04/17/20at 18:34; Admin Dose 100 MLS/HR; Start 04/17/20 at 18:15; Stop 04/24/20 at 18:14 HANH BORGES MD Apr 17, 2020 19:12
[2020-04-17] MEDS ORDERED: ONDANSETRON HCL INJ 2MG/ML 2ML 2 MG/ML VIAL IV PRN (19:30)
--- OUTSIDE RECORDS SUMMARY | 2020-04-17 20:20 | XMS REPORT | Continuity of Care Document ---
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 Role Phone [employer] Unavailable Un available Problems Problem Status Onset Date Classification Date Reported Comments Source Rheumatoid arthritis, unspecified 07/30/2018 02/10/2019 ALVARADO Ortiz Asymptomatic menopausal state 04/23/2018 11/03/2018 ALVARADO Warren J18.9 - "PNEUMONIA, UNSPECIFIED ORGANIS" Active 10/04/2015 [employer] 493.90 - ASTHMA NOS Active 05/27/2013 ALVARADO Warren Limb Pain Active 01/14/2014 [facility] Sciatica Active 01/14/2014 [facility] Hypothyroidism Active 01/14/2014 [facility] Benign Essential Hypertension Active 01/14/2014 [facility] Depression With Anxiety Active 01/14/2014 [facility] Allergic Rhinitis Active 01/14/2014 [facility] Asthma Active 01/14/2014 [facility] Type 2 Diabetes Mellitus - Uncomplicated, Controlled Active 01/14/2014 [facility] Vitamin B12 Deficiency Active 01/14/2014 [facility] Solitary Thyroid Nodule Active 11/29/2012 [facility] Herpes Simplex Type I Active 09/18/2012 [facility] Nontoxic Solitary Thyroid Nodule Active 08/21/2013 [facility] Vomiting (Symptom) Active 11/17/2013 [facility] Vaccines Prophylactic Need Against Influenza Active 10/29/2013 [facility] Anemia Active 01/14/2014 [facility] Pain In Flank Active 01/14/2014 [facility] Urinary Tract Infection Active 11/17/2013 [facility] 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 05/17/2019 Beth Milaloretta Folic Acid 1 tablet Orally Active 1 mg Orally Once a day [facility] 05/17/2019 Beth Milaloretta Tramadol HCl 1 tablet as needed Orally Active 50 MG Orally bid [facility] 04/17/2019 Beth Milaloretta Enbrel Mini 50mg Subcutaneously Active 50mg Subcutaneously Onc e weekly [facility] 04/09/2019 Beth Artur Blood Pressure Monitor KIT ; S tart Date: 01/09/2014 (Active) Active 01/09/2014 [facility] Azithromycin 250 MG Oral Tablet ; [...] Date: 09/22/2013; End Date: (Active) Active 09/22/2013 [facility] Levothyroxine Sodium 112 MCG Oral Tablet ; Start Date: 07/21/2013; End Date: (Active) Active 07/21/2013 [facility] Cyclobenzaprine HCl 5 MG Oral Tablet ; Start Date: 05/29/2013; End Date: (Active) Active 05/29/2013 [facility] Nebulizer Compressor KIT ; Sta rt Date: 05/27/2013 (Active) Active 05/27/2013 [facility] Azithromycin 250 MG Oral Tablet ; Start Date: 05/26/2013; End Date: (Active) Active 05/26/2013 [facility] Levalbuterol HCl 1.25 MG/0.5ML Inhalatio n Nebulization Solution ; Start Date: 05/26/2013 (Active) Active 05/26/2013 [facility] Symbicort 160-4.5 MCG/ACT Inhalation Aerosol ; Start Date: 09/30/2012 (Active) Active 09/30/2012 [facility] GlyBURIDE-MetFORMIN 5-500 MG Oral Tablet ; Start Date: 09/30/2012; End Date: (Active) Active 09/30/2012 [facility] Losartan Potassium-HCTZ 50-12.5 MG Oral Tablet ; Start Date: 09/30/2012; End Date: (Active) Active 09/30/2012 [facility] TraMADol HCl 50 MG Oral Tablet ; Start Date: 09/30/2012; End Date: (Active) Active 09/30/2012 [facility] Cyanocobalamin 1000 MCG/ML Injection Solution ; Start Date: 09/30/2012; End Date: (Active) Active 09/30/2012 [facility] Symbicort 160-4.5 MCG/ACT Inhalation Aerosol ; Start Date: 09/30/2012 (Active) Active 09/30/2012 [facility] Losartan Potassium-HCTZ 100-25 MG Oral Tablet ; Start Date: 09/30/2012; End Date: (Active) Active 09/30/2012 [facility] Gabapentin 100 MG Oral Capsule ; Start Date: 09/18/2012; End Date: (Active) Active 09/18/2012 [facility] ValACYclovir HCl 1 GM Oral Tablet ; Start Date: 09/17/2012; End Date: (Active) Active 09/17/2012 [facility] Abreva 10 % External Cream ; [...] HCl 10 MG Oral Tablet (Active) Active [facility] Metformin HCl 1 tablet with a meal Orally Active 500 MG Orally Once a day [facility] Beth Namehreen Lantus SoloStar as directed Subcutaneous Active 100 UNIT/ML Subcutaneous [facility] Beth Namehreen Hydroxychloroquine Sulfate 1.5 tabs Orally Active 200 [facility] Cetirizine HCl 1 tablet Orally Active 10 MG Orally Once a day [facility] Beth Zaragoza Atorvastatin Calcium 1 tablet Orally Active 40 MG [facility] Metronidazole 1 application to affected area Externally Active 0.75 % Externally Twice a day [facility] Beth Namehreenm Farxiga 1 tablet Orally Active 10 MG Orally Once a day Namehreen Jree n Namehreen Tramadol HCl 1 tablet as needed Orally Active 50 MG Orally bid [facility] Beth Zaragoza Stool Softener 1 capsule as ne eded Orally Active 100 MG Orally Once a day [facility] Beth Zaragoza Restasis 1 drop into affected eye Ophthalmic Active 0.05 % Ophthalmic Twice a day [facility] Beth Namehreen Folic Acid 1 tablet Orally Active 1 mg Orally [facility] Advair Diskus 1 puff Inhalation Active 100-50 MCG/DOSE Inhalat ion Twice a day [facility] Ipratropium-Albuterol 1 puff Inhalation Active 20-100 MCG/ACT Inhalation Four times a day [facility] Beth Namehreen Losartan Potassium 1 tablet Orally Active 100 MG Orally Once a day [facility] Beth Siddiqui Methotrexate 8 tabs Orally Active 2.5 mg Orally Once a we frank Siddiqui Allergies, Adverse Reactions, Alerts Substance Category Reaction Severity Reaction type Status Date Reported Comments Source Penicillin Adverse Reaction Info Not Available Adverse Reaction Active 04/09/2019 Beth Siddiqui Penicillins drug allergy drug allergy Active [facility] Immunizations Immunization Date Given Site Status Last Updated Comments Source Influenza 05/19/2013 completed [facility] Results No Data Provided for This Section Pathology Reports No Data Provided for This Section Diagnostic Reports Report Value Date Source Hand 3 views Bilateral DX CLIN ICAL HISTORY: - M06.9 Rheumatoid arthritis, unspecified; Z79.899 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 No pulmonary or pleural-based abnormality is identified. The cardiomediastinal silhouette is normal. No acute osseous abnormality is identified. Surgical fixation hardware seen in the lower cervical spine. IMPRESSION: No acute cardiopulmonary abnormality. 07/23/2018 [facility] Bone Density DXA [employer] MA BONE [...] for fracture. This exam was interpreted at [id number] for KALI Nova 15. Aaron Garcia M.D., cm/frank:04/16/2018 09:50:44 Cap Cutter(s): Nanci Wade RT(R)(M), [facility] 04/16/2018 AIDAN Warren Knee 4+ views bilat DX EXAM: X R BILATERAL KNEE 4 VIEWS DATE: 07/20/2016 1:31 PM X [employer]AY [employer] INDICATION: M79.609 Pain in unspecified limb COMPARISON: [...] the medial compartment. Peripheral vascular atherosclerosis. 07/20/2016 [facility] Foot 3 views bilateral DX EXAM : [...] 3. Bilateral small calcaneal enthesophyt es. 01/28/2016 [facility] Knee 3 Views Bilateral DX EXAM : [...] moderate in the bilateral medial compartments. 01/20/2016 [facility] Hand 2 views Bilateral DX EXAM : [...] as rheumatoid arthritis. 2. Generalized osteopenia. 01/20/2016 [facility] Chest 2 views DX EXAM: XR CHES [...] the chest when compared with 05/27/2013. 10/04/2015 [facility] Chest 2 views No comparison ex am [...] less likely. Followup is recommended 05/27/2013 [facility] Consultation Notes No Data Provided for This [...] ADM Date DC Date Status Source AUDIT [id number] 09/18/2012 09/18/2012 [facility] AUDIT [id number] 09/30/2012 09/30/2012 [facility] AUDIT [id number] 10/03/2012 10/03/2012 [facility] FUP, Provi dale: HARIKA FRANCO, Status: Pen, Time: 8:15 AM [id number] 10/15/2012 10/03/2012 [facility] AUDIT [id number] 11/29/2012 11/29/2012 [facility] AUDIT [id number] 04/29/2013 04/29/2013 [facility] AUDIT [id number] 05/06/2013 05/07/2013 [facility] ECL, Provi dale: HARIKA FRNACO, Status: Pen, Time: 3:00 PM [id number] 05/13/2013 05/07/2013 [facility] AUDIT [id number] 05/14/2013 05/14/2013 [facility] AUDIT [id number] 05/19/2013 05/19/2013 [facility] AUDIT [id number] 05/20/2013 05/20/2013 [facility] INJ, Provi dale: HARIKA FRANCO, Status: Pen, Time: 4:30 PM [id number] 05/26/2013 05/20/2013 [facility] AUDIT [id number] 05/26/2013 05/26/2013 [facility] OD [id number] 493.90 - ASTHMA NOS HARIKA FRANCO 05/27/2013 Active [facility] AUDIT [id number] 05/29/2013 05/29/2013 [facility] AUDIT [id number] 06/02/2013 06/02/2013 [facility] AUDIT [id number] 06/21/2013 06/21/2013 [facility] AUDIT [id number] 06/23/2013 06/23/2013 [facility] AUDIT [id number] 07/24/2013 07/24/2013 [facility] AUDIT [id number] 07/25/2013 07/25/2013 [facility] MELANIE, Provi dale: HARIKA FRANCO, Status: Pen, Time: 10:00 AM [id number] 08/11/2013 07/25/2013 [facility] AUDIT [id number] 08/21/2013 08/21/2013 [facility] AUDIT [id number] 09/25/2013 09/25/2013 [facility] AUDIT [id number] 10/07/2013 10/07/2013 [facility] AUDIT [id number] 10/08/2013 10/08/2013 [facility] AUDIT [id number] 10/28/2013 10/28/2013 [facility] AUDIT [id number] 10/29/2013 10/29/2013 [facility] WWHelene, Provi dale: HARIKA FRANCO, Status: Pen, Time: 3:15 PM [id number] 11/03/2013 10/29/2013 [facility] AUDIT [id number] 11/04/2013 11/04/2013 [facility] AUDIT [id number] 11/07/2013 11/07/2013 [facility] AUDIT [id number] 11/10/2013 11/11/2013 [facility] AUDIT [id number] 11/12/2013 11/12/2013 [facility] AUDIT [id number] 11/14/2013 11/14/2013 [facility] AUDIT [id number] 11/17/2013 11/17/2013 [facility] MELANIE, Provi dale: HARIKA FRANCO, Status: Pen, Time: 10:30 AM [id number] 12/29/2013 11/17/2013 [facility] AUDIT [id number] 01/02/2014 01/02/2014 [facility] AUDIT [id number] 01/14/2014 01/14/2014 [facility] CAMILLA, Provi dale: HARIKA FRANCO, Status: Pen, Time: 10:30 AM [id number] 03/30/2014 01/14/2014 [facility] [place] [facility] [id number] Chriss Pereira 10/04/2015 10/05/[address] [facility] [facility] [place] [facility] [id number] 02 Harika Forrestisabelle 01/20/2016 01/21/[address] [facility] [place] [facility] [id number] 03 Marquis Loza 01/28/2016 01/29/[address] [facility] [place] [facility] [id number] 04 Robert Jesus 07/20/2016 07/21/[address] [facility] [place] [facility] [id number] [facility] 04/16/2018 04/17/2018 [facility] [place] [facility] [id number] [facility] 07/23/2018 07/24/[address] [facility] [place] [facility] [id number] 07 Christen Lawsonsaf 06/05/2019 06/06/2019 [facility] Procedures No Data Provided for This Section Assessment and Plan No Data Provided for This Section Plan of Care Plan of Care Date Source Medication Use 12/19/2013 Routine 01/14/2014 [facility] Medication Use 12/19/2013 RoutineFollow- up visit [...] 08/21/2013 Routine[QLH] HEMOGLOBIN A1c 08/21/2013 Routine 08/21/2013 [facility] XRAY Chest 2 views [id number] 05/26/2013 Routine 05/26/2013 [facility] [QLH] TSH, [...] REFLEX TO DIRECT LDL 05/13/2013 Routine 05/14/2013 [facility] Social History Social History Date Source No data available for this section 06/06/2019 ALVARADO Warren No data available for this section 07/24/2018 ALVARADO Ortiz Never A Smoker (Active) Alcoh ol Use (Active) Marital History - Single (Active) Occupation: Retired (Active) 01/14/2014 [facility] Family History Value Date S ource Family history of Congestive Heart Failu re (Active) Family history of Diabetes Mellitus (V18.0); (Active) Family history of Osteoarthritis (V17.7); (Active) 01/14/2014 [facility] Family history of Congestive Heart Failu re (Active) Family history of Diabetes Mellitus (V18.0); (Active) Family history of Osteoarthritis (V17.7); (Active) 01/02/2014 [facility] Family history of Congestive Heart Failu re (Active) Family history of Diabetes Mellitus (V18.0); (Active) Family history of Osteoarthritis (V17.7); (Active) 11/17/2013 [facility] Family history of Congestive Heart Failu re (Active) Family history of Diabetes Mellitus (V18.0); (Active) Family history of Osteoarthritis (V17.7); (Active) 11/14/2013 [facility] Family history of Congestive Heart Failu re (Active) Family history of Diabetes Mellitus (V18.0); (Active) Family history of Osteoarthritis (V17.7); (Active) 11/12/2013 [facility] Family history of Osteoarthritis (V17.7) ; (Active) Family history of Diabetes Mellitus (V18.0); (Active) Family history of Congestive Heart Failure (Active) 11/11/2013 [facility] Family history of Congestive Heart Failu re (Active) Family history of Diabetes Mellitus (V18.0); (Active) Family history of Osteoarthritis (V17.7); (Active) 11/07/2013 [facility] Family history of Congestive Heart Failu re (Active) Family history of Diabetes Mellitus (V18.0); (Active) Family history of Osteoarthritis (V17.7); (Active) 11/04/2013 [facility] Family history of Congestive Heart Failu re (Active) Family history of Diabetes Mellitus (V18.0); (Active) Family history of Osteoarthritis (V17.7); (Active) 10/29/2013 [facility] Family history of Congestive Heart Failu re (Active) Family history of Diabetes Mellitus (V18.0); (Active) Family history of Osteoarthritis (V17.7); (Active) 10/28/2013 [facility] Family history of Congestive Heart Failu re (Active) Family history of Diabetes Mellitus (V18.0); (Active) Family history of Osteoarthritis (V17.7); (Active) 10/08/2013 [facility] Family history of Congestive Heart Failu [...] Family history of Osteoarthritis (V17.7); (Active) 07/25/2013 [facility] Family history of Congestive Heart Failu re (Active) Family history of Diabetes Mellitus (V18.0); (Active) Family history of Osteoarthritis (V17.7); (Active) 07/24/2013 [facility] Family history of Congestive Heart Failu re (Active) Family history of Diabetes Mellitus (V18.0); (Active) Family history of Osteoarthritis (V17.7); (Active) 06/23/2013 [facility] Family history of Congestive Heart Failu re (Active) Family history of Diabetes Mellitus (V18.0); (Active) Family history of Osteoarthritis (V17.7); (Active) 06/21/2013 [facility] Family history of Congestive Heart Failu re (Active) Family history of Diabetes Mellitus (V18.0); (Active) Family history of Osteoarthritis (V17.7); (Active) 06/02/2013 [facility] Family history of Congestive Heart Failu re (Active) Family history of Diabetes Mellitus (V18.0); (Active) Family history of Osteoarthritis (V17.7); (Active) 05/29/2013 [facility] Family history of Congestive Heart Failu re (Active) Family history of Diabetes Mellitus (V18.0); (Active) Family history of Osteoarthritis (V17.7); (Active) 05/26/2013 [facility] Family history of Congestive Heart Failu [...] Family history of Osteoarthritis (V17.7); (Active) 05/07/2013 [facility] Family history of Congestive Heart Failu re (Active) Family history of Diabetes Mellitus (V18.0); (Active) Family history of Osteoarthritis (V17.7); (Active) 04/29/2013 [facility] Advance Directives Order Name Results Value Date Source Advance Directives Advance Dir ectives No Advance Directives available. 01/14/2014 [facility] Advance Directives Advance Dir ectives No Advance Directives available. 01/02/2014 [facility] Advance Directives Advance Dir ectives No Advance Directives available. 11/17/2013 [facility] Advance Directives Advance Dir ectives No Advance Directives available. 11/14/2013 [facility] Advance Directives Advance Dir ectives No Advance Directives available. 11/12/2013 [facility] Advance Directives Advance Dir ectives No Advance Directives available. 11/11/2013 [facility] Advance Directives Advance Dir ectives No Advance Directives available. 11/07/2013 [facility] Advance Directives Advance Dir ectives No Advance Directives available. 11/04/2013 [facility] Advance Directives Advance Dir ectives No Advance Directives available. 10/29/2013 [facility] Advance Directives Advance Dir ectives No Advance Directives available. 10/28/2013 [facility] Advance Directives Advance Dir ectives No Advance Directives available. 10/08/2013 [facility] Advance Directives Advance Dir ectives No Advance Directives available. 10/07/2013 [facility] Advance Directives Advance Dir ectives No Advance Directives available. 09/25/2013 [facility] Advance Directives Advance Dir ectives No Advance Directives available. 08/21/2013 [facility] Advance Directives Advance Dir ectives No Advance Directives available. 07/25/2013 [facility] Advance Directives Advance Dir ectives No Advance Directives available. 07/24/2013 [facility] Advance Directives Advance Dir ectives No Advance Directives available. 06/23/2013 [facility] Advance Directives Advance Dir ectives No Advance Directives available. 06/21/2013 [facility] Advance Directives Advance Dir ectives No Advance Directives available. 06/02/2013 [facility] Advance Directives Advance Dir ectives No Advance Directives available. 05/29/2013 [facility] Advance Directives Advance Dir ectives No Advance Directives available. 05/26/2013 [facility] Advance Directives Advance Dir ectives No Advance Directives available. 05/20/2013 [facility] Advance Directives Advance Dir ectives No Advance Directives available. 05/19/2013 [facility] Advance Directives Advance Dir ectives No Advance Directives available. 05/14/2013 [facility] Advance Directives Advance Dir ectives No Advance Directives available. 05/07/2013 [facility] Advance Directives Advance Dir ectives No Advance Directives available. 04/29/2013 [facility] Advance Directives Advance Dir ectives No Advance Directives available. 11/29/2012 [facility] Advance Directives Advance Dir ectives No Advance Directives available. 10/03/2012 [facility] Advance Directives Advance Dir ectives No Advance Directives available. 09/30/2012 [facility] Advance Directives Advance Dir ectives No Advance Directives available. 09/18/2012 [facility] Functional Status No Data Provided for This Section
[2020-04-17] MEDS: FAMOTIDINE 20 MG/2 ML VIAL IV SCH (20:23)
[2020-04-17] MEDS: SODIUM CHLORIDE 0.9% 1000ML 1,000 ML IV SCH (20:23)
[2020-04-17 21:22] LABS: EOSINOPHILS % (MANUAL) 2 % (0-7); LYMPHOCYTES % (MANUAL) 3 % (19-48)
[2020-04-17 21:23] LABS: BAND NEUTROPHILS % (MANUAL) 8 %; MONOCYTES % (MANUAL) 8 % (3.4-9.0); NEUTROPHILS % (MANUAL) 79 % (40-74); PLATELET ESTIMATE ADEQUATE; PLATELET MORPHOLOGY COMMENT NORMAL
--- NOTE | 2020-04-17 23:11 | NUR ---
pt c fever 100.[address] carmona called to inform. prn tylenol ordered.
[2020-04-17] MEDS ORDERED: ACETAMINOPHEN 325 MG TAB PO PRN (23:15)
[2020-04-17 23:30] VITALS: BP 141/73
[2020-04-18] VITALS (9 sets, daily range): BP systolic 102–141; BP diastolic 56–89
[2020-04-18] MEDS ORDERED: DEXTROSE 50% SYRINGE 50 ML IV PRN (00:15)
[2020-04-18] MEDS ORDERED: AMLODIPINE BESYLATE 5 MG TAB PO PRN (00:15)
[2020-04-18] MEDS ORDERED: HYDRALAZINE HCL 20 MG/ML VIAL IV PRN (00:15)
--- NOTE | 2020-04-18 03:19 | NUR ---
PT IS TRANSFERRED FROM ER PT IS AOX3 PT IS UNABLE TO WALK RESPIRATIONS ARE EVEN AND UNLABORED .DENIES PAIN NOW BRUISES RT AND LEFT KNEES ORIENTED THE PT TO THE ENVIRONMENT RT AC 20G NS AT 125CC/HR .TELE SHOWS SR CALL LIGHT WITH IN REACH .CONTINUE TO MONITOR
[2020-04-18] MEDS: SODIUM CHLORIDE 0.9% 1000ML 1,000 ML IV SCH ×2 (05:33→09:31)
[2020-04-18] MEDS: CEFTRIAXONE SOD 1 GM/NS 50 ML 50 ML IV SCH ×2 (06:22→18:12)
--- NOTE | 2020-04-18 06:28 | NUR ---
PT DENIES PAIN .NO ACUTE DISTRESS NOTED ,CALL LIGHT WITH IN REACH ,CONTINUE TO MONITOR
[2020-04-18 06:38] LABS: BASOPHILS # (AUTO) 0.2 (0.0-0.1); BASOPHILS % 0.4 % (0.0-1.0); HEMATOCRIT 37.5 % (34.2-44.1); HEMOGLOBIN 11.4 g/dL (12.0-16.0); LYMPHOCYTES # (AUTO) 0.6 (1.0-3.2); LYMPHOCYTES % 1.5 % (18.0-39.1); MEAN CORPUSCULAR HEMOGLOBIN 32.5 pg (28-32); MEAN CORPUSCULAR HGB CONC 30.4 g/dL (31-35); MEAN CORPUSCULAR VOLUME 106.8 fL (81-99); MONOCYTES # (AUTO) 2.1 (0.2-0.8); MONOCYTES % 5.5 % (4.4-11.3); NEUTROPHILS # (AUTO) 33.4 (2.1-6.9); NEUTROPHILS % 87.3 % (38.7-80.0); PLATELET COUNT 211 x10e3/uL (140-360); RED BLOOD COUNT 3.51 x10e6/uL (3.6-5.1); RED CELL DISTRIBUTION WIDTH 14.3 % (11.7-14.4)
[2020-04-18 07:06] LABS: ALBUMIN 2.9 g/dL (3.5-5.0); ALBUMIN/GLOBULIN RATIO 0.7 (0.8-2.0); ANION GAP 20.9 mmol/L (8-16); CREATININE, SERUM 1.56 mg/dL (0.57-1.11); POTASSIUM 3.9 mmol/L (3.5-5.1)
--- NOTE | 2020-04-18 07:09 | NUR ---
BEDSIDE REPORT GIVEN TO THE ONCOMING NURSE
[2020-04-18] MEDS: INSULIN LISPRO 100 UNIT/1 ML 3ML VIAL SQ SCH ×4 (08:45→21:00)
[2020-04-18] MEDS: FAMOTIDINE 20 MG/2 ML VIAL IV SCH ×2 (08:46→20:30)
[2020-04-18] MEDS ORDERED: LEVOTHYROXINE SODIUM 100 MCG TAB PO SCH (09:00)
[2020-04-18] MEDS ORDERED: LEVOTHYROXINE 100 MCG PO SCH (09:00)
[2020-04-18] MEDS ORDERED: INSULIN GLARGINE 100 UNITS/ML VIAL SQ ONE (09:15)
[2020-04-18] MEDS ORDERED: FUROSEMIDE INJ 10 MG/ML 4 ML VIAL IV ONE (09:15)
[2020-04-18] MEDS ORDERED: ALBUTEROL/IPRATROPIUM 3 ML NEB NEB PRN (09:15)
[2020-04-18] MEDS: ALBUTEROL/IPRATROPIUM 3 ML NEB NEB SCH ×2 (09:42→14:45)
[2020-04-18 10:23] LABS: CLARITY,URINE CLOUDY (CLEAR); COLOR,URINE YELLOW (YELLOW); LEUKOCYTE ESTERASE ,URINE 1+ (NEGATIVE); NITRITE,URINE NEGATIVE (NEGATIVE); PROTEIN,URINE DIPSTICK 2+ (NEGATIVE)
[2020-04-18 10:24] LABS: BILIRUBIN,URINE 1+ (NEGATIVE); KETONES,URINE 1+ (NEGATIVE); URINE UROBILINOGEN 1 mg/dL (0.2 - 1)
[2020-04-18 10:29] LABS: BACTERIA,URINE MANY /HPF; EPITHELIAL CELLS,URINE FEW /LPF; RBC,URINE 21-50 /HPF (0-5); WBC,URINE (MAN) >50 /HPF (0-5)
--- NOTE | 2020-04-18 11:43 | History and Physical ---
CHIEF COMPLAINT: Fell on the floor 2 days, could not get up, went into acute renal failure, rhabdomyolysis. PRIMARY CARE PHYSICAN: Dr. Chriss Pereira. HISTORY OF PRESENT ILLNESS: This is a 79-year-old female, came in because she could not get up after she fell. It was 2 to 3 days prior to family able to get to the patient. The patient came in with rhabdomyolysis. The patient is having pain. She had multiple bruises in the knee area. The patient is a little confused at this time. She is otherwise stable. She did not have any cranial injury. She had a syncopal episode 2 days ago per the patient, but currently was trip and fall and she could not get up. PAST MEDICAL HISTORY: 1. Osteoarthritis. 2. Diabetes type 2. 3. Hypothyroidism. 4. Hypertension. PAST SURGICAL HISTORY: 1. Cholecystectomy. 2. Hysterectomy. 3. Spinal surgery. SOCIAL HISTORY: The patient does not smoke or use alcohol. No regular drug. ALLERGIES: PENICILLIN. HOME MEDICATIONS: List reviewed. REVIEW OF SYSTEMS: The patient seems weak. There is no chest pain. No shortness of breath. She does have some chronic lower back pain. She had multiple joint pain, especially in the knee area. PHYSICAL EXAMINATION: VITAL SIGNS: Temperature is 97, blood pressure 136/87, pulse rate 63, respirations 18. GENERAL: The patient is not in acute distress. She is awake. HEENT: Normocephalic and atraumatic. Anicteric. NECK: Supple grossly. PULMONARY: Diminished breath sounds bilaterally without any wheezing or rales. CARDIOVASCULAR: Tachycardia. Irregular rate and rhythm. ABDOMEN: Soft, nontender, non-distention. EXTREMITIES: No gross cyanosis. Multiple bruises in the knee area. No edema. NEUROLOGIC: The patient is awake, a little confused, but able to try to move all her extremities without any focal deficit. I had a hard time moving the patient to exam because of her pain. LABORATORY DATA: WBCs 29, hemoglobin is 12, hematocrit 39, platelets is 269. Chemistry; sodium is 144, potassium 4.5, chloride 106, bicarb 19, BUN is 71, creatinine 1.6, glucose is 264. CK was 5869. BNP is 196. IMAGING TESTS: Pelvic x-ray otherwise unremarkable. Chest x-ray, bilateral atelectasis. Cervical spine CT showed no cervical spine fracture or subluxation. She did have surgical intervention, C3 through C7. Degenerative changes as described. Brain CT shows left frontal scalp swelling without underlying fractures. No acute intracranial abnormality. IMPRESSION: 1. Acute rhabdomyolysis. 2. Sepsis without shock. The patient had urinalysis showing cloudy urine with urine wbc of 50. Many bacteria. 3. Lower back pain, status post fall, was not able to get up. 4. Multiple baseline problems. 5. Metabolic acidosis. 6. Acute renal failure secondary to the above. PLAN: 1. Consultation with Nephrology and Infectious Disease. 2. IV fluids. 3. Antibiotics. 4. Harmon catheter placement. 5. CT of the T and L-spine. 6. SCD to the lower extremity. 7. Aspiration precaution. 8. Pain control. 9. We will rehydrate the patient as well. The patient seemed to be quite dehydrated. We will monitor this patient closely at this time. MD DOMINGA Blankenship/PRISCILA /[id number]
[2020-04-18 11:57] LABS: BAND NEUTROPHILS % (MANUAL) 14 %; MONOCYTES % (MANUAL) 3 % (3.4-9.0); NEUTROPHILS % (MANUAL) 83 % (40-74); PLATELET ESTIMATE ADEQUATE; PLATELET MORPHOLOGY COMMENT NORMAL
[2020-04-18 11:58] LABS: RBC MORPHOLOGY COMMENT ABNORMAL
--- NOTE | 2020-04-18 14:16 | Diagnostic Imaging Report ---
History: Trauma Comparison studies: None Technique:: Axial were obtained through the thoracic and lumbar regions. Coronal and sagittal images reconstructed from the axial data. Dose modulation, iterative reconstruction, and/or weight based adjustment of the mA/kV was utilized to reduce the radiation dose to as low as reasonably achievable. Intravenous contrast: None Findings: Alignment: Normal thoracic kyphosis. Normal lumbar lordosis. 3 mm (grade 1) anterolisthesis of L4 on L5 due to degenerative changes in the facets Soft tissues: Scattered atherosclerotic calcifications in the aorta and iliac arteries. Paraspinal muscles: Unremarkable Spinal cord: Cannot evaluate. Postsurgical changes: Partially visualized anterior cervical fusion from C3 through C7. Hardware in place Vertebrae: Bones mildly demineralized. No fractures, infection or neoplasm . Thoracic degenerative changes: Mildly degenerated discs from T1 through L1. No significant spinal canal or foraminal stenosis in spite of a few scattered disc osteophyte complexes. Lumbar degenerative changes: * Minimally degenerated discs from L3-S1. Facet arthrosis bilaterally from L1-S1, worse at L3-4 and L4-5 * Moderate spinal canal stenosis at L3-4, severe at L4-5 due to a disc bulge and facet arthrosis. * Foraminal stenosis, mild right, moderate left L4-5 due to endplate osteophytes and the grade 1 degenerative anterolisthesis of L4 on L5. IMPRESSION: 1. No acute thoracic or lumbar abnormalities. 2. Specifically, no fractures or subluxations. 3. Cannot adequately assess for spinal cord, ligament or vascular injuries on the exam. 4. No significant degenerative changes in the thoracic region. Degenerative changes in the lumbar region, however, result in moderate spinal canal stenosis at L3-4, severe spinal canal and left moderate foraminal stenosis at L4-5 in part due to degenerative anterolisthesis of L4 on L5. Signed by: Dr. Naga Herndon M.D. on 04/18/2020 2:12 PM
--- NOTE | 2020-04-18 16:27 | Diagnostic Imaging Report ---
EXAMINATION: CHEST SINGLE (PORTABLE) COMPARISON: Chest x-ray 04/17/2020 INDICATION: ^SOB ^[id number] ^[id number] DISCUSSION: HEART AND MEDIASTINUM: The heart is top normal in size. The thoracic aorta is tortuous LINES: None. LUNGS/PLEURA: Low lung volumes are stable. Small focus of atelectasis at the dome of the right diaphragm. No new findings in the left lung. No pleural effusion or pneumothorax. BONES AND SOFT TISSUES: Fusion plate in the lower cervical spine is stable and appears intact. The soft tissues are normal. Cholecystectomy clips in the right upper quadrant. IMPRESSION: No acute cardiopulmonary process. Stable right basilar atelectasis. Signed by: Dr. Lisa Banerjee MD on 04/18/2020 4:23 PM
--- NOTE | 2020-04-18 18:04 | NUR ---
14 F allen catheter placed, x1 attempt, patient tolerated well.
--- NOTE | 2020-04-18 18:35 | NUR ---
IV fluid order reviewed with and clarified , orders received for LR @ 75 mls/hr x 2 liters, and Lasix 20 mg after 1st liter complete. orders reviewed with oncoming nurse.
[2020-04-18] MEDS ORDERED: FUROSEMIDE INJ 10 MG/ML 2 ML VIAL IV PRN (19:00)
[2020-04-18] MEDS: LACTATED RINGER'S 1,000 ML INJ SCH (20:00)
--- NOTE | 2020-04-18 21:20 | Consultation ---
DATE OF CONSULTATION: ADDENDUM: For the present time, I am going to hold off on giving her IV fluids. I am going to check a chest x-ray 1st to see her fluid status and she is having a little bit of shortness of breath now. A Harmon was attempted to be placed. However, the nurses could not place the Harmon. Harmon could not be placed. Her bicarb is 16. I am going to check venous blood gas for her acid-base status, but in the meantime, I will check a chest x-ray to see if she can tolerate more IV fluids. Ather MD THA Jaime/PRISCILA /[id number]
--- NOTE | 2020-04-18 21:50 | Consultation ---
DATE OF CONSULTATION: Initial Nephrology Consultation Report REASON FOR CONSULTATION: Acute renal failure. HISTORY OF PRESENT ILLNESS: Ms. Lindsey Hatch is a 79-year-old female, who presented to the hospital after having a fall. I am being asked to see her because her serum creatinine is 1.5. When she presented her BUN and creatinine were 71 and 1.68 and now her BUN and creatinine are 74 and 1.56. The only old lab values I have from 2014 and at that time her serum creatinine was 0.99. The patient states that in the days preceding the hospitalization, she was taking about maybe one or two ibuprofen tablets a day. She does not know the dosage. PAST MEDICAL HISTORY: 1. The patient has a history of diabetes. 2. Hypertension. 3. Hypothyroidism. PAST SURGICAL HISTORY: Hysterectomy and cholecystectomy. SOCIAL HISTORY: No smoking. No EtOH. No HIV risk factor. REVIEW OF SYSTEMS: As per HPI. The patient is feeling kind of weak at this time. PHYSICAL EXAMINATION: VITAL SIGNS: Blood pressure 131/57, pulse 80, temperature 98.6. GENERAL: The patient is lying down flat. Her face is kind of flushed. HEENT: No increased JVD. CARDIOVASCULAR: Regular rhythm. LUNGS: Decreased breath sounds. ABDOMEN: Positive bowel sounds. EXTREMITIES: She is wearing pneumatic compression stockings on her legs. LABORATORY RESULTS: Her BUN and creatinine are 74 and 1.56 respectively. Sodium 142, potassium 3.9, chloride 109, bicarbonate 16. Hemoglobin and hematocrit 11.4 and 37.5 respectively. Her urinalysis shows 2+ protein, 1+ ketone, 2+ blood, 1+ leukocyte esterase, negative nitrite, greater than 50 white cells, 21-50 red cells, many bacteria. Her initial CK was 5869. IMPRESSION: 1. Acute kidney injury. 2. Rhabdomyolysis. 3. Probable urinary tract infection. PLAN: At the present time, the patient has acute kidney injury. Like I mentioned, we do not have any old labs, BUN and creatinine except for one from 2014 and at that time her serum creatinine was 0.99. She does have urinary tract infection, urine has been sent for culture. NSAIDs, SAPP-2 inhibitors and IV contrast should be avoided. We will give her lactated Ringer as her IV fluid and this will also provide some alkali. Her bicarbonate is 16, it is low. This is most likely metabolic acidosis. I will check venous blood gas on her to confirm that it is metabolic acidosis. At the present time if the renal function does not correct with IV fluids then more workup will be done, but at this time we will try to hydrate the patient with lactated Ringer and follow the course of the renal function. Thank you, Dr. Reid, for allowing me to participate in the care of this patient with you. Ather MD THA Jaime/PRISCILA /[id number]
[2020-04-19] VITALS (9 sets, daily range): BP systolic 108–140; BP diastolic 53–84
--- NOTE | 2020-04-19 03:30 | NUR ---
Called Dr Reid concerning the patient heart rate, Afib with a high of 140 but not sustained. requested a consult by Dr Covarrubias Scheduling Representative
[2020-04-19 05:05] LABS: BASOPHILS # (AUTO) 0.1 (0.0-0.1); BASOPHILS % 0.3 % (0.0-1.0); EOSINOPHILS # (AUTO) 2.3 (0.0-0.4); EOSINOPHILS % 9.2 % (0.0-6.0); HEMATOCRIT 32.4 % (34.2-44.1); HEMOGLOBIN 10.5 g/dL (12.0-16.0); LYMPHOCYTES # (AUTO) 0.9 (1.0-3.2); LYMPHOCYTES % 3.6 % (18.0-39.1); MEAN CORPUSCULAR HEMOGLOBIN 33.3 pg (28-32); MEAN CORPUSCULAR HGB CONC 32.4 g/dL (31-35); MEAN CORPUSCULAR VOLUME 102.9 fL (81-99); MONOCYTES # (AUTO) 1.9 (0.2-0.8); MONOCYTES % 7.7 % (4.4-11.3); NEUTROPHILS # (AUTO) 19.7 (2.1-6.9); NEUTROPHILS % 78.2 % (38.7-80.0); PLATELET COUNT 168 x10e3/uL (140-360); RED BLOOD COUNT 3.15 x10e6/uL (3.6-5.1); RED CELL DISTRIBUTION WIDTH 14.3 % (11.7-14.4)
[2020-04-19 05:26] LABS: ALBUMIN 2.5 g/dL (3.5-5.0); ALBUMIN/GLOBULIN RATIO 0.7 (0.8-2.0); ANION GAP 14.6 mmol/L (8-16); CALCIUM 8.8 mg/dL (8.4-10.2); CREATININE, SERUM 1.19 mg/dL (0.57-1.11); POTASSIUM 3.6 mmol/L (3.5-5.1)
[2020-04-19] MEDS: LEVOTHYROXINE SODIUM 100 MCG TAB PO SCH (06:00)
[2020-04-19] MEDS: CEFTRIAXONE SOD 1 GM/NS 50 ML 50 ML IV SCH ×2 (06:15→18:20)
--- NOTE | 2020-04-19 06:44 | NUR ---
Consult called in to Dr Covarrubias
[2020-04-19] MEDS: INSULIN LISPRO 100 UNIT/1 ML 3ML VIAL SQ SCH ×4 (08:20→21:00)
[2020-04-19] MEDS: ALBUTEROL/IPRATROPIUM 3 ML NEB NEB SCH (08:20)
[2020-04-19] MEDS: FAMOTIDINE 20 MG/2 ML VIAL IV SCH ×2 (08:24→20:52)
[2020-04-19] MEDS: LACTATED RINGER'S 1,000 ML INJ SCH (09:35)
--- NOTE | 2020-04-19 09:36 | Consultation ---
DATE OF CONSULTATION: 04/19/2020 Urology Consultation Consultation is called by Dr. Reid. CHIEF UROLOGIC COMPLAINT AND REASON FOR CONSULTATION: Renal failure, hematuria, urinary tract infection. HISTORY OF PRESENT ILLNESS: Ms. Lindsey Hatch is a 79-year-old chronically ill female patient admitted to the hospital with a fall. She has had a PureWick catheter system placed externally at an outside source. The patient was admitted to the hospital with acute renal failure. No gross hematuria. No fevers. No chills. PAST MEDICAL HISTORY: Notable for diabetes mellitus, hypertension, hypothyroidism, status post cholecystectomy, status post hysterectomy. MEDICATIONS: Please see MAR. ALLERGIES: TO PENICILLIN. SOCIAL HISTORY: Denied smoking or drinking. FAMILY HISTORY: Denied urologic stones or malignancies. REVIEW OF SYSTEMS: Noncontributory other than problems mentioned above for 12-organ systems. PHYSICAL EXAMINATION: GENERAL: Elderly female in no acute distress. Currently sleeping. VITAL SIGNS: Temperature 95.1, pulse 82, respirations 159/56, height 5 feet 4 inches, weight 195 pounds, BMI 33.46. HEENT: Sclerae anicteric. NECK: Supple. BACK: Without costovertebral bilaterally. ABDOMEN: Soft. It is nontender. It is nondistended. No palpable mass. No palpable hernias. No palpable adenopathy. : Normal female genitalia. EXTREMITIES: No edema. NEUROLOGIC: Moves all extremities. PSYCH: Alert and mood appropriate. SKIN: Intact. Normal color. PERTINENT LABORATORY DATA: Hemoglobin 10, hematocrit 32, platelet count 168,000, white blood cell count 25,000. Sodium 142, potassium 3.6, chloride 111, bicarb 20, BUN 85, creatinine 1.19, glucose 200. CK of 1566. Urinalysis, 21 to 50 reds, greater than 50 whites, 2+ glucose, 2+ protein. PERTINENT IMAGING: Lumbar spine CT showed no fractures or subluxations. No mention of a distended bladder. IMPRESSION: 1. Urinary tract infection. 2. Microscopic hematuria. 3. Mixed-type urinary incontinence. 4. Glucosuria. 5. Proteinuria. 6. Acute renal failure, likely secondary to dehydration/rhabdomyolysis. 7. Obesity. PLAN: The patient has been begun on broad-spectrum antibiotics. With this, put a hydration to renal. Electively, the patient will need a cystoscopy. The patient does not appear to be in retention due to her atrophy/agglutination unless her condition deteriorates with no evidence of hydronephrosis, no retention would not instrument her and further exacerbate her issues. We will continue the [employer] system. Thank you for allowing me to participate in the care of your patient. We will be happy to follow along with you. Arya Abdalla MD ES/MODL /[id number] cc: Bogdan Reid MD
[2020-04-19] MEDS: METOPROLOL TARTRATE 25 MG TAB PO SCH ×3 (09:43→17:55)
[2020-04-19 11:07] LABS: BAND NEUTROPHILS % (MANUAL) 1 %; LYMPHOCYTES % (MANUAL) 3 % (19-48); MONOCYTES % (MANUAL) 5 % (3.4-9.0); NEUTROPHILS % (MANUAL) 91 % (40-74); PLATELET ESTIMATE ADEQUATE; PLATELET MORPHOLOGY COMMENT NORMAL; RBC MORPHOLOGY COMMENT NORMAL
--- NOTE | 2020-04-19 11:08 | Consultation ---
DATE OF CONSULTATION: 04/19/2020 REASON FOR CONSULTATION: Sepsis. Thank you, Dr. Reid, for asking me to see this patient. HISTORY OF PRESENT ILLNESS: The patient is a 79-year-old woman who was referred for sepsis. She presented to the emergency department with inability to get up following a fall at home. The patient was found on the floor two days later by the family. She has had increased urination prior, but denies fever, chills, suprapubic pain, or flank pain. At triage, she was noted to have temperature of 98.7 degrees Fahrenheit, pulse rate 77, respiratory rate 25, blood pressure 124/63, and oxygen saturation 96% on BiPAP. INITIAL LABORATORY STUDIES: Blood leukocyte count of 29,150, BUN 71, creatinine 1.68, blood glucose 261, and creatine kinase 5869. Chest x-ray showed bibasilar atelectasis. Blood and urine cultures later grew gram-negative rods. PAST MEDICAL HISTORY: Diabetes mellitus type 2, hypertension, and hypothyroidism. PAST SURGICAL HISTORY: Cholecystectomy, hysterectomy, and C3-C7 cervical spine fusion. ALLERGIES: PENICILLIN. MEDICATIONS: The current antibiotic is ceftriaxone 1 g IV piggyback q.12h. FAMILY HISTORY: Noncontributory. SOCIAL HISTORY: No alcohol or tobacco use. REVIEW OF SYSTEMS: As per history of present illness. PHYSICAL EXAMINATION: VITAL SIGNS: T-max 99.7, pulse rate 73, respiratory rate 23, blood pressure 140/63, and weight 195 pounds. GENERAL: Acutely ill. HEENT: Normocephalic. There is bruising of the left temporal area. There is no icterus or injection of conjunctivae. There is no ear or nasal discharge. There is dry oral mucosa. No pharyngeal erythema or exudate. LUNGS: With decreased breath sounds bilaterally. HEART: With normal S1, S2. Regular. ABDOMEN: Soft and nontender. EXTREMITIES: No edema, clubbing, or cyanosis. SKIN: There is bruising of the left temporal area as stated above, as well as bilateral knees, the left greater than right. There is no acute erythema. AIRFIELD ENGINEER OFFICER: Awake, alert, and oriented to person, place, and time. Nonfocal. LABORATORY AND DIAGNOSTICS: WBC 25,170, hemoglobin 10.5, platelets 168,000, neutrophils 78.2, lymphocytes 3.6, monocytes 7.7, eosinophils 9.2, and basophils 0.3. BUN 85, creatinine 1.19, blood glucose 228, and creatine kinase 1566. Urinalysis was abnormal. SARS-CoV-2 PCR negative. Blood culture is growing Gram-negative rods. Urine culture also grew gram-negative rods. IMPRESSION: 1. Severe sepsis from urinary tract infection due to gram-negative rods, present on admission. 2. Acute kidney injury from sepsis. 3. Hyperglycemia due to diabetes mellitus type 2. PLAN: 1. Await blood and urine isolate identification and sensitivity. 2. Continue intravenous fluids and antibiotics. 3. Glycemic control per internal medicine. 4. Monitor closely for drug eruption in view of elevated eosinophils. MD JESSICA Aguilar/MODL /[id number]
[2020-04-19] MEDS: ENOXAPARIN SOD INJ 40 MG/0.4 ML SYR SC SCH ×2 (12:44→22:00)
--- NOTE | 2020-04-19 13:23 | Consultation ---
DATE OF CONSULTATION: Cardiology Consult HISTORY OF PRESENT ILLNESS: Lindsey Hatch is a 79-year-old female admitted with primary history of hypertension, uncontrolled diabetes type 2, hypothyroidism, hyperlipidemia, asthma, osteoarthritis, admitted complaining of extreme fatigue and generalized weakness and fall at home. The patient reported that she had syncopal episodes two days prior to her fall. The patient denies any palpitations, chest pain, or any shortness of breath. PAST MEDICAL HISTORY: Hypertension, diabetes type 2, hypothyroidism, osteoarthritis, asthma. PAST SURGICAL HISTORY: Cholecystectomy, hysterectomy and spinal surgery. SOCIAL HISTORY: The patient does not smoke or use alcohol. No illicit drug use. ALLERGIES: PENICILLIN. HOME MEDICATION: See list. REVIEW OF SYSTEMS: The patient has generalized weakness. Denies any chest pain. No shortness of breath. Chronic lower back pain. Multiple bruises and abrasions to the knee area. PHYSICAL EXAMINATION: CURRENT VITAL SIGNS: Temperature is 98.9, pulse is 76, respiratory rate of 20, pulse oximetry 100% on 2 L nasal cannula. GENERAL: The patient is well developed, well nourished, in no acute respiratory distress. HEENT: The patient cranium is normocephalic and atraumatic. Pupils are equally round and reactive to light and accommodation. Sclera is nonicteric. Ears are normal. Mucosa is moist. Throat is clear. NECK: Supple. Full range of motion. No cervical lymphadenopathy. No thyromegaly. Carotid artery upstroke is normal bilaterally without bruits. No JVD or hepatojugular reflux. RESPIRATORY: Normal respiratory effort. LUNGS: Diminished to lower lobes. No wheezing or rhonchi rales. CARDIOVASCULAR: S1 and S2 is audible. Regular rate and rhythm. PMI is in the 5th intercoastal space at the midclavicular line. No significant murmurs. GI: Soft, nontender, obese, nondistended. Bowel sounds are present. EXTREMITIES: No cyanosis, no clubbing. Pulses are palpable 2+ throughout. NEUROLOGIC: Motor and sensory examination of the upper and lower extremities is normal. Reflexes are normal and symmetrical bilaterally. SKIN: Abrasions to the left knee. ADMISSION LABS: WBC is 29, hemoglobin is 12, hematocrit is 39, and platelet is 269. Chemistry; sodium is 144, potassium 4.5, chloride 106, bicarb is 19, BUN is 71, creatinine is 1.6, glucose is 264. CK 5869. BNP is 196. Troponin 0.177. IMAGING TEST: Chest x-ray shows bilateral atelectases. Brain CT shows left frontal scalp swelling without underlying fractures. No acute intracranial abnormality. IMPRESSION AND PLAN: 1. The patient is a 79-year-old admitted post syncopal episode and fall. Cardiology is consulted to evaluate. The patient did have episode of atrial fibrillation overnight with a ventricular rate on the 140s, suspect paroxysmal atrial fibrillation. Monitor hemodynamic and place on continuous telemetry monitoring. 2. Obtain echocardiogram to evaluate valve and LV function. 3. Gumaro-Vasc score is three, starts on beta manasa for rate control and anticoagulation with Lovenox. 4. We will continue to evaluate for any further need of any cardiac intervention. Further recommendation will follow according to patient's clinical course. Thank you for this consultation. Dictated by Beckie Santana NP MD FILOMENA Vo/PRISCILA /[id number]
[2020-04-19] MEDS ORDERED: LACTATED RINGER'S 1,000 ML INJ SCH (16:00)
[2020-04-19] MEDS: TRAMADOL HCL 50 MG TAB PO PRN (16:29)
--- NOTE | 2020-04-19 17:15 | NUR ---
Notified Beckie [employer]CHO[employer] SCIENCE TUTOR patient's bradycardia after the first dose of Lopressor, received orders for parameters hold Lopressor, if HR is less than 60
--- NOTE | 2020-04-19 17:45 | Progress Note ---
DATE: 04/19/2020 Renal Progress Note SUBJECTIVE: Events over the last 24 hours have been noted. She is speaking well. She does not appear to be in any distress at this time even though her face does seem a little flushed. PHYSICAL EXAMINATION: VITAL SIGNS: Blood pressure is 119/56 and pulse of 115. GENERAL: The patient's face seems a little flushed. HEENT: No increased JVD. CARDIOVASCULAR: Tachycardia. LUNGS: Decreased breath sounds. ABDOMEN: Decreased bowel sounds. EXTREMITIES: Very trace edema. LABORATORY DATA: Sodium 142, potassium 3.6, chloride 110, bicarbonate 20, and BUN and creatinine 85 and 1.2. Urine culture is growing out gram-negative rods. Her creatine kinase 1566. IMPRESSION/PLAN: 1. Acute kidney injury. 2. Rhabdomyolysis. 3. Atrial fibrillation. 4. Mild metabolic acidosis. PLAN: The patient's renal function is improving. Her BUN did go up slightly. This may have been due to the Lasix that she got after her first liter of IV fluid, but her creatinine is coming down. Her CK is also coming down too. I will continue the lactated Ringer, especially since she is a little bit acidotic. We will continue that for 2 more liters. She got about 2 L already. We will continue with IV fluid. Ather MD THA Jaime/PRISCILA /[id number]
--- NOTE | 2020-04-19 22:25 | NUR ---
Pt. took bipap off. refusing to put it back on placed her back on oxygen 2L per nasal cannula. Oxygen saturation 98%.
[2020-04-20] VITALS (8 sets, daily range): BP systolic 126–157; BP diastolic 51–89
[2020-04-20] MEDS: LACTATED RINGER'S 1,000 ML INJ SCH ×2 (00:01→12:52)
[2020-04-20 04:36] LABS: BASOPHILS # (AUTO) 0.1 (0.0-0.1); BASOPHILS % 0.4 % (0.0-1.0); EOSINOPHILS # (AUTO) 0.2 (0.0-0.4); EOSINOPHILS % 1.4 % (0.0-6.0); HEMATOCRIT 32.5 % (34.2-44.1); HEMOGLOBIN 10.5 g/dL (12.0-16.0); LYMPHOCYTES # (AUTO) 1.5 (1.0-3.2); LYMPHOCYTES % 9.2 % (18.0-39.1); MEAN CORPUSCULAR HGB CONC 32.3 g/dL (31-35); MEAN CORPUSCULAR VOLUME 102.2 fL (81-99); MONOCYTES # (AUTO) 1.4 (0.2-0.8); MONOCYTES % 8.5 % (4.4-11.3); NEUTROPHILS # (AUTO) 13.3 (2.1-6.9); NEUTROPHILS % 79.2 % (38.7-80.0); PLATELET COUNT 164 x10e3/uL (140-360); RED BLOOD COUNT 3.18 x10e6/uL (3.6-5.1); RED CELL DISTRIBUTION WIDTH 14.3 % (11.7-14.4)
[2020-04-20 04:52] LABS: ANION GAP 11.5 mmol/L (8-16); BLOOD UREA NITROGEN 61 mg/dL (7-26); BUN/CREATININE RATIO 69 (6-25); CALCIUM 8.4 mg/dL (8.4-10.2); CARBON DIOXIDE 24 mmol/L (22-29); CHLORIDE 109 mmol/L (98-107); CREATININE, SERUM 0.88 mg/dL (0.57-1.11); EST GLOMERULAR FILTRATION RATE > 60 ML/MIN (60-); GLUCOSE 144 mg/dL (74-118); POTASSIUM 3.5 mmol/L (3.5-5.1); SODIUM 141 mmol/L (136-145)
[2020-04-20] MEDS: CEFTRIAXONE SOD 1 GM/NS 50 ML 50 ML IV SCH ×2 (06:32→18:00)
[2020-04-20] MEDS: LEVOTHYROXINE SODIUM 100 MCG TAB PO SCH (06:32)
[2020-04-20] MEDS: FAMOTIDINE 20 MG/2 ML VIAL IV SCH ×2 (08:52→19:58)
[2020-04-20] MEDS: INSULIN LISPRO 100 UNIT/1 ML 3ML VIAL SQ SCH ×4 (08:53→20:49)
[2020-04-20] MEDS: ENOXAPARIN SOD INJ 40 MG/0.4 ML SYR SC SCH ×2 (08:55→20:50)
[2020-04-20] MEDS: METOPROLOL TARTRATE 25 MG TAB PO SCH ×2 (09:30→17:50)
[2020-04-20] MEDS ORDERED: POTASSIUM CHLORIDE 10MEQ EA PO SCH (09:45)
[2020-04-20] MEDS: TRAMADOL HCL 50 MG TAB PO PRN (09:50)
--- NOTE | 2020-04-20 15:00 | NUR ---
Patient declining to be turn and reposition
--- NOTE | 2020-04-20 15:14 | Progress Note ---
DATE: 04/20/2020 Renal Progress Note SUBJECTIVE: Events over the past 24 hours have been noted. The patient is somewhat tired but she has no acute complaints. PHYSICAL EXAMINATION: VITAL SIGNS: Blood pressure is 128/66, pulse 70, respirations 20. I's and O's for the past 24 hours, she has had intake of 1710 mL and output of 1600 mL. GENERAL: The patient is in no acute distress, but she seems a little flushed. HEENT: No increased JVD. CARDIOVASCULAR: Regular rate and rhythm. LUNGS: Decreased breath sounds bilaterally. ABDOMEN: Positive bowel sounds. EXTREMITIES: Very little edema. The patient has SCDs in place. LABORATORY RESULTS: Includes sodium of 141, potassium 3.5, chloride 109, bicarbonate 24, BUN and creatinine of 61 and 0.8 respectively. There is no CK from today, although I had ordered it. IMPRESSION: 1. Acute kidney injury. 2. Rhabdomyolysis. 3. Atrial fibrillation. 4. Mild hypokalemia. PLAN: The patient has been getting lactated Ringer. Her renal function has improved significantly. Essentially she is back at baseline. I will go ahead and stop her lactated Ringer to make sure she does not get fluid overloaded. Her urine output is actually good. I do not think there is any need for diuretic at this time. Her urine culture has grown out Klebsiella pneumoniae. She is on ceftriaxone until 12 hours. According to the sensitivities, the organism is susceptible to ceftriaxone, so this antibiotic will be effective. Her renal function has returned to normal. I will go ahead and replace her potassium since it is on the borderline low side. I will go ahead and sign off on the case but still be available. Please re-consult as necessary. Ather MD THA Jaime/PRISCILA /[id number]
[2020-04-21] VITALS (8 sets, daily range): BP systolic 137–157; BP diastolic 53–67
[2020-04-21 04:35] LABS: BASOPHILS # (AUTO) 0.1 (0.0-0.1); BASOPHILS % 0.6 % (0.0-1.0); EOSINOPHILS # (AUTO) 0.3 (0.0-0.4); EOSINOPHILS % 2.7 % (0.0-6.0); HEMATOCRIT 33.2 % (34.2-44.1); HEMOGLOBIN 10.5 g/dL (12.0-16.0); LYMPHOCYTES # (AUTO) 1.4 (1.0-3.2); LYMPHOCYTES % 14.5 % (18.0-39.1); MEAN CORPUSCULAR HEMOGLOBIN 32.8 pg (28-32); MEAN CORPUSCULAR HGB CONC 31.6 g/dL (31-35); MEAN CORPUSCULAR VOLUME 103.8 fL (81-99); MONOCYTES # (AUTO) 1.3 (0.2-0.8); MONOCYTES % 14.1 % (4.4-11.3); NEUTROPHILS # (AUTO) 6.1 (2.1-6.9); NEUTROPHILS % 65.5 % (38.7-80.0); PLATELET COUNT 158 x10e3/uL (140-360); RED CELL DISTRIBUTION WIDTH 14.4 % (11.7-14.4)
[2020-04-21 04:51] LABS: ANION GAP 11.9 mmol/L (8-16); BLOOD UREA NITROGEN 43 mg/dL (7-26); BUN/CREATININE RATIO 56 (6-25); CALCIUM 8.3 mg/dL (8.4-10.2); CARBON DIOXIDE 23 mmol/L (22-29); CHLORIDE 110 mmol/L (98-107); CREATININE, SERUM 0.77 mg/dL (0.57-1.11); EST GLOMERULAR FILTRATION RATE > 60 ML/MIN (60-); GLUCOSE 134 mg/dL (74-118); POTASSIUM 3.9 mmol/L (3.5-5.1); SODIUM 141 mmol/L (136-145)
[2020-04-21] MEDS: CEFTRIAXONE SOD 1 GM/NS 50 ML 50 ML IV SCH ×2 (05:26→17:12)
[2020-04-21] MEDS: LEVOTHYROXINE SODIUM 100 MCG TAB PO SCH (05:29)
[2020-04-21] MEDS: FAMOTIDINE 20 MG/2 ML VIAL IV SCH ×2 (08:18→20:33)
[2020-04-21] MEDS: INSULIN LISPRO 100 UNIT/1 ML 3ML VIAL SQ SCH ×4 (08:19→20:38)
[2020-04-21] MEDS: METOPROLOL TARTRATE 25 MG TAB PO SCH ×2 (08:20→17:12)
[2020-04-21] MEDS: ENOXAPARIN SOD INJ 40 MG/0.4 ML SYR SC SCH ×2 (08:23→20:33)
--- NOTE | 2020-04-21 13:07 | NUR ---
SPOKE WITH DAUGHTER ERLINDA FITZGERALD [phone] LET HER KNOW ABOUT REFERRAL FOR SNF, SHE AGREED TO [facility], COMPLETED RTF, COVID FORM AND PASRR, FAXED CLINICALS TO FACILITY NOTIFIED REP AND PUT PACKET AT DESK PENDING AUTH.
[2020-04-21] MEDS: AMLODIPINE BESYLATE 5 MG TAB PO SCH (13:10)
--- NOTE | 2020-04-21 13:13 | NUR ---
WOUND CARE CONSULT FOR 79 YO FEMALE HX OFSYNCOPE,RENAL INSUFF,RHABDOMYOLYSIS LISSY 16 ON MODERATE PUP STATUS AND INTERVENTIONS AND ALTERNATING PRESSURE MATTRESS LABS: WBC-9.28 HGB_10.5 GLUCOSE-134 SKIN ASSESSMENT COMPLETE PATIENT PRESENTS WITH LEFT KNEE UNGRADEABLE WOUND 75%YELLOW SLOUGH 25% BROWN ESCHAR 4CM X8CM RECOMMENDATIONS: NURSING TO CONTINUE TO MAINTAIN MODERATE PUP STATUS AND INTERVENTIONS AND ALTERNATING PRESSURE MATTRESS NURSING TO CONTINUE TO ASSIST PATIENT OUT OF BED FOR MEALS AND MUCH TOLERATED NURSING TO CONTINUE TO ASSIST PATIENT NEEDED WITH MEALS AND NUTRITIONAL SUPPLEMENTS TO ENSURE PROPER REQUIREMENTS FOR HEALING NURSING TO CONTINUE TO OFFLOAD FEET AND HEELS NEEDED WITH PILLOW SUSPENSION WHEN IN BED NURSING TO CLEAN LEFT KNEE UNGRADEABLE WOUND WITH NORMAL SALINE DAILY AND APPLY SANTYL OINTMENT AND 4X4 SECURE WITH FOAM TAPE Addendum: 04/21/20 at 1320 by Rogelio Matias RN Amended: Links added.
[2020-04-22] VITALS (9 sets, daily range): BP systolic 138–168; BP diastolic 48–62
[2020-04-22] MEDS: TRAMADOL HCL 50 MG TAB PO PRN (00:14)
[2020-04-22 04:35] LABS: BASOPHILS # (AUTO) 0.1 (0.0-0.1); BASOPHILS % 0.9 % (0.0-1.0); EOSINOPHILS # (AUTO) 0.3 (0.0-0.4); EOSINOPHILS % 3.4 % (0.0-6.0); HEMATOCRIT 34.9 % (34.2-44.1); LYMPHOCYTES # (AUTO) 1.5 (1.0-3.2); LYMPHOCYTES % 18.1 % (18.0-39.1); MEAN CORPUSCULAR HEMOGLOBIN 31.9 pg (28-32); MEAN CORPUSCULAR HGB CONC 31.5 g/dL (31-35); MEAN CORPUSCULAR VOLUME 101.2 fL (81-99); MONOCYTES # (AUTO) 1.2 (0.2-0.8); MONOCYTES % 14.5 % (4.4-11.3); NEUTROPHILS # (AUTO) 4.8 (2.1-6.9); NEUTROPHILS % 58.8 % (38.7-80.0); PLATELET COUNT 180 x10e3/uL (140-360); RED BLOOD COUNT 3.45 x10e6/uL (3.6-5.1); RED CELL DISTRIBUTION WIDTH 14.3 % (11.7-14.4)
[2020-04-22 04:57] LABS: ALANINE AMINOTRANSFERASE 38 IU/L (0-55); ALBUMIN 2.3 g/dL (3.5-5.0); ALBUMIN/GLOBULIN RATIO 0.6 (0.8-2.0); ALKALINE PHOSPHATASE 80 IU/L (40-150); ANION GAP 12.6 mmol/L (8-16); BLOOD UREA NITROGEN 28 mg/dL (7-26); BUN/CREATININE RATIO 39 (6-25); CALCIUM 8.2 mg/dL (8.4-10.2); CARBON DIOXIDE 24 mmol/L (22-29); CHLORIDE 109 mmol/L (98-107); CREATININE, SERUM 0.71 mg/dL (0.57-1.11); EST GLOMERULAR FILTRATION RATE > 60 ML/MIN (60-); GLUCOSE 155 mg/dL (74-118); POTASSIUM 3.6 mmol/L (3.5-5.1); SODIUM 142 mmol/L (136-145)
[2020-04-22] MEDS: CEFTRIAXONE SOD 1 GM/NS 50 ML 50 ML IV SCH ×2 (06:23→17:59)
[2020-04-22] MEDS: LEVOTHYROXINE SODIUM 100 MCG TAB PO SCH (06:23)
[2020-04-22] MEDS: FAMOTIDINE 20 MG/2 ML VIAL IV SCH ×2 (08:13→19:38)
[2020-04-22] MEDS: ENOXAPARIN SOD INJ 40 MG/0.4 ML SYR SC SCH ×2 (08:15→19:38)
[2020-04-22] MEDS: COLLAGENASE 5 GM TUBE TOP SCH (08:15)
[2020-04-22] MEDS: AMLODIPINE BESYLATE 5 MG TAB PO SCH ×2 (08:15→09:00)
[2020-04-22] MEDS: INSULIN LISPRO 100 UNIT/1 ML 3ML VIAL SQ SCH ×4 (08:15→20:29)
[2020-04-22] MEDS: METOPROLOL TARTRATE 25 MG TAB PO SCH ×2 (08:15→17:59)
--- NOTE | 2020-04-22 09:20 | NUR ---
CONTACTED [facility], STILL PENDING AUTH
--- NOTE | 2020-04-22 16:22 | NUR ---
WOUND CARE SCREENING CONSULT FOR 79 YO FEMALE ADMITTED TO [facility] WITH A PRESENT HX OF RENAL INSUFFICIENCY RHABDOMYOLYSIS AND SYNCOPE. LISSY 14 ON MODERATE PUP STATUS AND INTERVENTIONS SURFACE: REGULAR VISCO MATTRESS. LABS: WBC- 8.21 HGB- 11.0 ALBUMIN-2.3 SKIN ASSESSMENT COMPLETE PATIENT PRESENTS WITH DENUTED SKIN TO SACROGLUTEAL FOLD RELATED TO MOISTURE. MEASURING 3 CM X 0.2CM X 0.1 CM; MINIMAL SEROUS DRAINAGE. RECOMMENDATIONS NURSING TO CONTINUE WITH PRIOR WOUND CARE ORDERS. NURSING TO CLEAN SACRO-GLUTEAL FOLD WITH NORMAL SALINE, PAT DRY WITH 4X4 GAUZE, APPLY VENELEX, AND COVER WITH ALLEVYN FOAM DAILY. NURSING TO CONTINUE TO MONITOR PATIENT AND KEEP SKIN CLEAN AND FREE FROM STOOL OR IRRITATING MOISTURE AND CONTINUE TO FOLLOW MODERATE PUP INTERVENTIONS DAILY. NURSING TO ENCOURAGE PT TO SELF REPOSITION IN BED NEEDED. NURSING TO RE- CONSULT WOUND CARE NEEDED. Addendum: 04/22/20 at 1625 by Chrissy Dempsey RN Amended: Links added.
[2020-04-22] MEDS: BALSAM PERU/CASTOR OIL 60 GM OINT...G. TP SCH (18:02)
[2020-04-22] MEDS ORDERED: SODIUM CHLORIDE 0.9% 250ML 250 ML ONE (23:41)
[2020-04-23] VITALS (9 sets, daily range): BP systolic 114–172; BP diastolic 52–74
[2020-04-23] MEDS: LEVOTHYROXINE SODIUM 100 MCG TAB PO SCH (05:37)
[2020-04-23] MEDS: CEFTRIAXONE SOD 1 GM/NS 50 ML 50 ML IV SCH ×2 (05:37→18:15)
--- NOTE | 2020-04-23 05:45 | NUR ---
Patient transferred from [facility] via stretcher. Patient had no complaints of pain. Respirations even and non -labored. Harmon catheter draining light rachel clear urine. Fall precautions implemented. Patient instructed to call for assistance when needed. Call light within reach.
--- NOTE | 2020-04-23 06:20 | NUR ---
TRIED TO CALL PT DAUGHTER ERLINDA FITZGERALD WITH NUMBER LISTED [phone] AND THE NUMBER IS DISCONNECTED, NOTIFIED HOUSE HLEADIO AND RN ON 2ND FLOOR FOR THE PT.
[2020-04-23] MEDS: FAMOTIDINE 20 MG/2 ML VIAL IV SCH (08:09)
[2020-04-23] MEDS: METOPROLOL TARTRATE 25 MG TAB PO SCH ×2 (08:10→16:32)
[2020-04-23] MEDS: ENOXAPARIN SOD INJ 40 MG/0.4 ML SYR SC SCH (08:10)
[2020-04-23] MEDS: AMLODIPINE BESYLATE 5 MG TAB PO SCH (08:10)
[2020-04-23] MEDS: INSULIN LISPRO 100 UNIT/1 ML 3ML VIAL SQ SCH ×3 (08:57→16:34)
--- NOTE | 2020-04-23 09:31 | NUR ---
CALLED [facility], STILL PENDING
[2020-04-23] MEDS: COLLAGENASE 5 GM TUBE TOP SCH (10:39)
[2020-04-23] MEDS: BALSAM PERU/CASTOR OIL 60 GM OINT...G. TP SCH (10:39)
[2020-04-23] MEDS: TRAMADOL HCL 50 MG TAB PO PRN (14:03)
--- NOTE | 2020-04-23 15:36 | NUR ---
[facility] FACILITY DISCHARGE INFORMATION PATIENT HAS BEEN ACCEPTED TO: NAME: [facility] [id number] ACCEPTING FOLDED CLOTH TAPER:KISHORE KEITA ACCEPTING MD:KELLY ROOM:[address] NURSE CALL REPORT TO: [phone] IMM SIGNED AND OBTAINED (if applicable): IMM THE FOLLOWING DOCUMENTS MUST ACCOMPANY PATIENT FOR TRANSFER: COPIED CHART: PACKET
--- NOTE | 2020-04-23 16:05 | NUR ---
[facility] ARRANGED TO TRANSPORT PATIENT. ATTEMPTED TO CALL REPORT TO [facility]. NURSE UNAVAILABLE. LEFT MESSAGE FOR NURSE TO CALL BACK FOR REPORT.
--- NOTE | 2020-04-23 16:51 | NUR ---
NURSE AT [facility] STILL UNABLE TO TAKE REPORT FOR PATIENT. WILL WAIT FOR CALL BACK OR ATTEMPT AGAIN IN 30 MIN.
--- NOTE | 2020-04-23 17:45 | NUR ---
REPORT GIVEN TO WANDA KONG. DAUGHTER ERLINDA CALLED TO NOTIFY OF TRANSFER BUT NO ANSWER. IV ACCESS REMOVED.
[2020-04-23] MEDS ORDERED: ONDANSETRON HCL 4 MG ORAL DISINTEGRATING TAB PO PRN (18:15)
--- NOTE | 2020-04-24 10:13 | Discharge Summary ---
[employer]ETING [employer]JECT LEAD: Hunter Gonzalez MD FINAL DIAGNOSES: 1. Sepsis without shock. 2. Complicated urinary tract infection associated urinary retention. 3. Status post rhabdomyolysis. 4. Status post acute renal failure. 5. Medical debility with recurrent fall. 6. Status post dehydration. 7. Multiple bruises. 8. Status post toxic encephalopathy secondary to multiple factors including infection as mentioned above. SUMMARY: The patient is a 79-year-old female, found at home came into the hospital, but basically with rhabdomyolysis, acute renal failure, severe dehydration and also urinary retention associated with urinary tract infection E coli. The patient was placed on antibiotics. Consultation with Dr. Zuhair Vieira, Infectious Disease; Dr. Hunter Gonzalez for acute renal failure. The patient did receive IV fluid rehydration and Rocephin 1 g q.12 hours. The patient did receive physical therapy. She had multiple abrasions due to fall, of the lower extremity and also her facial abrasion as well, but without any complicated injury. No fractures of the bones. The patient was admitted. She first was confused, toxic due to infection and dehydration and rhabdomyolysis with acute renal failure, but subsequently with treatment she was doing much better. The patient was transferred from [facility] to medical floor subsequently. All her electrolyte was corrected. The patient did receive physical therapy. She was weak and overall debilitated, but improving during the hospitalization. She socially lives by herself. Social displacement and placement need to obtain. The patient was otherwise stable. She will go to skilled facility. Continue with physical therapy, give the patient Keflex for 7 days orally and a Harmon catheter to be removed at a later date. The patient will have repeat electrolytes and wound care along with fall precautions, skin care, etc. The patient is otherwise stable. The patient will follow up with her family physician upon discharge. She will continue with her current medication, medication reconciliation was done. All instruction was given. The patient will be discharged to Skilled Facility [facility]. The patient is otherwise stable and discharged today. MD DOMINGA Blankenship/NIKIAL /[id number]
== END 2020-04-23 22:14 | DRG 871 ==
LOC: ER 15:20 → ERHOLD 19:59 → MED/SURG2 23:30 → IMCU 04-18 16:48 → MED/SURG2 04-23 05:37
PROVIDERS: ADMIT Internal Medicine; ATTEND Internal Medicine
DX: A41.50 Gram-negative sepsis, unspecified (principal); G92 Toxic encephalopathy; E87.2 Acidosis; N17.9 Acute kidney failure, unspecified; N39.0 Urinary tract infection, site not specified; M62.82 Rhabdomyolysis; Z91.81 History of falling; I10 Essential (primary) hypertension; E03.9 Hypothyroidism, unspecified; Z90.49 Acquired absence of other specified parts of digestive tract; E89.0 Postprocedural hypothyroidism; M54.9 Dorsalgia, unspecified; Z88.0 Allergy status to penicillin; N39.46 Mixed incontinence; E66.9 Obesity, unspecified; E11.65 Type 2 diabetes mellitus with hyperglycemia; R65.20 Severe sepsis without septic shock; I48.0 Paroxysmal atrial fibrillation; E87.6 Hypokalemia; R53.81 Other malaise; B96.20 Unspecified Escherichia coli [E. coli] as the cause of diseases classified elsewhere; S00.81XA Abrasion of other part of head, initial encounter; S80.212A Abrasion, left knee, initial encounter; S90.411A Abrasion, right great toe, initial encounter; W18.39XA Other fall on same level, initial encounter; Y93.89 Activity, other specified; Y92.019 Unspecified place in single-family (private) house as the place of occurrence of the external cause; M48.061 Spinal stenosis, lumbar region without neurogenic claudication; G47.33 Obstructive sleep apnea (adult) (pediatric); B96.1 Klebsiella pneumoniae [K. pneumoniae] as the cause of diseases classified elsewhere; Z68.33 Body mass index [BMI] 33.0-33.9, adult; Z79.84 Long term (current) use of oral hypoglycemic drugs; Z11.59 Encounter for screening for other viral diseases
CPT/HCPCS: 36415; 70450; 71045; 72125; 72128; 72131; 72170; 80048; 80053; 80061; 81001; 82550; 82552; 82553; 82948; 83036; 83735; 83880; 84443; 84484; 85025; 85610; 85730; 87040; 87071; 87086; 87186; 87205; 93005; 93306; 94640; 94660; 96372; 97139; 99284; J0696; J1650; J1940; J7030; J7050; J7121; U0002

== ENCOUNTER 2021-12-31 04:53 | Inpatient (IN) | payer MEDICARE, OTHER ==
[~2021-12-31] VITALS: Ht 162.6 cm; Wt 88.5 kg
[~2021-12-31 04:53] MED LIST changes: -ZYRTEC10 M3; +ZYRTEC10 M3 PO
[2021-12-31 06:26] LABS: BASOPHILS # (AUTO) 0.1 (0.0-0.1); BASOPHILS % 0.6 % (0.0-1.0); EOSINOPHILS # (AUTO) 0.5 (0.0-0.4); EOSINOPHILS % 6.2 % (0.0-6.0); HEMATOCRIT 34.4 % (34.2-44.1); HEMOGLOBIN 11.1 g/dL (12.0-16.0); LYMPHOCYTES % 25.7 % (18.0-39.1); MEAN CORPUSCULAR HEMOGLOBIN 30.8 pg (28-32); MEAN CORPUSCULAR HGB CONC 32.3 g/dL (31-35); MEAN CORPUSCULAR VOLUME 95.6 fL (81-99); MONOCYTES # (AUTO) 0.8 (0.2-0.8); MONOCYTES % 10.5 % (4.4-11.3); NEUTROPHILS # (AUTO) 4.4 (2.1-6.9); NEUTROPHILS % 56.2 % (38.7-80.0); PLATELET COUNT 318 x10e3/uL (140-360)
[2021-12-31 06:30] LABS: INR 0.93; PARTIAL THROMBOPLASTIN TIME 34.1 seconds (23.8-35.5); PROTHROMBIN TIME 13.3 seconds (11.9-14.5)
[2021-12-31 06:41] LABS: ALBUMIN 3.1 g/dL (3.5-5.0); ALBUMIN/GLOBULIN RATIO 0.6 (0.8-2.0); ANION GAP 11.2 mmol/L (8-16); CALCIUM 8.9 mg/dL (8.4-10.2); CREATININE, SERUM 0.81 mg/dL (0.57-1.11); POTASSIUM 4.2 mmol/L (3.5-5.1)
[2021-12-31 06:48] LABS: CREATINE KINASE MB 1.2 ng/mL (0-5.0)
[2021-12-31 07:21] LABS: CLARITY,URINE SL CLOUDY (CLEAR); COLOR,URINE YELLOW (YELLOW); KETONES,URINE NEGATIVE (NEGATIVE); LEUKOCYTE ESTERASE ,URINE SMALL (NEGATIVE); NITRITE,URINE NEGATIVE (NEGATIVE); PROTEIN,URINE DIPSTICK 2+ (NEGATIVE); RBC,URINE >50 /HPF (0-5); URINE UROBILINOGEN 0.2 mg/dL (0.2 - 1)
[2021-12-31 07:22] LABS: BACTERIA,URINE FEW /HPF; EPITHELIAL CELLS,URINE FEW /LPF
[2021-12-31] MEDS ORDERED: IOPAMIDOL 370 MG/ML 100 ML INFUS..BTL INJ ONE (07:37)
[2021-12-31] MEDS ORDERED: SODIUM CHLORIDE 0.9% 250ML 250 ML ONE ×2 (07:37→22:24)
[2021-12-31] MEDS ORDERED: ALBUTEROL/IPRATROPIUM 3 ML NEB ONE ×2 (07:39→07:40)
[2021-12-31] MEDS ORDERED: ONDANSETRON HCL INJ 2MG/ML 2ML 2 MG/ML VIAL IV PRN (07:45)
[2021-12-31 09:00] VITALS: BP 147/82
[2021-12-31] MEDS: SODIUM CHLORIDE 0.9% 1000ML 1,000 ML IV SCH ×2 (10:01→17:45)
[2021-12-31] MEDS ORDERED: ASPIRIN CHEW81 MG PO (10:24)
[2021-12-31] MEDS ORDERED: GABAPENTIN100 MG PO (10:24)
[2021-12-31] MEDS ORDERED: HYDRALAZINE HCL25 MG PO (10:24)
[2021-12-31] MEDS ORDERED: BUSPIRONE HCL5 MG PO (10:24)
[2021-12-31] MEDS ORDERED: LASIX40 MG PO (10:24)
[2021-12-31] MEDS ORDERED: FAMOTIDINE20 MG PO (10:24)
[2021-12-31] MEDS ORDERED: SENNA LAX8.6 MG PO (10:24)
[2021-12-31] MEDS ORDERED: MIRALAX17 GM PO (10:24)
[2021-12-31] MEDS ORDERED: ARICEPT5 MG PO (10:24)
[2021-12-31] MEDS ORDERED: ONDANSETRON ODT4 MG PO (10:24)
[2021-12-31] MEDS ORDERED: DEXTROSE 50% SYRINGE 50 ML IV PRN (11:45)
[2021-12-31 11:57] VITALS: BP 138/60
[2021-12-31] MEDS: INSULIN REGULAR, HUMAN 100 UNIT/1 ML SQ SCH ×3 (12:00→21:45)
[2021-12-31 15:42] VITALS: BP 140/54
[2021-12-31] MEDS ORDERED: GLIPIZIDE5 MG PO (16:42)
[2021-12-31] MEDS ORDERED: CYMBALTA30 MG PO (16:42)
[2021-12-31] MEDS ORDERED: POTASSIUM CHLO20 ME1 PO (16:42)
[2021-12-31] MEDS ORDERED: METHOCARBAMOL500 MG PO (16:42)
[2021-12-31] MEDS ORDERED: AMLODIPINE BESY10 MG PO (16:42)
[2021-12-31] MEDS ORDERED: ONDANSETRON HCL 4 MG ORAL DISINTEGRATING TAB PO PRN (16:45)
[2021-12-31] MEDS ORDERED: METHOCARBAMOL 500 MG TAB PO PRN (16:45)
[2021-12-31] MEDS ORDERED: POLYETHYLENE GLYCOL 3350 17 GM PACK PO PRN (16:45)
[2021-12-31] MEDS ORDERED: SENNOSIDES 8.6 MG TAB PO PRN (16:45)
[2021-12-31] MEDS: FAMOTIDINE 20 MG TAB PO SCH (17:10)
[2021-12-31] MEDS: GLIPIZIDE 5 MG TAB PO SCH (17:10)
[2021-12-31] MEDS: BUSPIRONE HCL 5 MG TAB PO SCH (17:10)
[2021-12-31 17:18] VITALS: BP 140/54
[2021-12-31 20:00] VITALS: BP 133/61
[2021-12-31 21:00] VITALS: BP 133/61
[2021-12-31] MEDS: DONEPEZIL HCL 5 MG TAB PO SCH (21:45)
[2021-12-31] MEDS: INSULIN GLARGINE 100 UNITS/ML VIAL SQ SCH (21:45)
[2021-12-31] MEDS: TRAMADOL HCL 50 MG TAB PO PRN (23:20)
[2022-01-01] VITALS (7 sets, daily range): BP systolic 148–157; BP diastolic 70–78
[2022-01-01 07:33] LABS: BASOPHILS # (AUTO) 0.1 (0.0-0.1); BASOPHILS % 0.8 % (0.0-1.0); EOSINOPHILS # (AUTO) 0.3 (0.0-0.4); EOSINOPHILS % 3.3 % (0.0-6.0); HEMATOCRIT 37.2 % (34.2-44.1); HEMOGLOBIN 12.1 g/dL (12.0-16.0); LYMPHOCYTES # (AUTO) 1.5 (1.0-3.2); MEAN CORPUSCULAR HEMOGLOBIN 30.9 pg (28-32); MEAN CORPUSCULAR HGB CONC 32.5 g/dL (31-35); MEAN CORPUSCULAR VOLUME 94.9 fL (81-99); MONOCYTES # (AUTO) 0.5 (0.2-0.8); MONOCYTES % 6.4 % (4.4-11.3); NEUTROPHILS # (AUTO) 5.9 (2.1-6.9); NEUTROPHILS % 70.1 % (38.7-80.0); PLATELET COUNT 322 x10e3/uL (140-360); RED BLOOD COUNT 3.92 x10e6/uL (3.6-5.1); RED CELL DISTRIBUTION WIDTH 12.9 % (11.7-14.4)
[2022-01-01 07:56] LABS: ALBUMIN 3.1 g/dL (3.5-5.0); ALBUMIN/GLOBULIN RATIO 0.6 (0.8-2.0); ANION GAP 13.8 mmol/L (8-16); CALCIUM 8.8 mg/dL (8.4-10.2); CREATININE, SERUM 0.76 mg/dL (0.57-1.11); POTASSIUM 3.8 mmol/L (3.5-5.1)
[2022-01-01] MEDS: LEVOTHYROXINE SODIUM 100 MCG TAB PO SCH (08:00)
[2022-01-01] MEDS: INSULIN REGULAR, HUMAN 100 UNIT/1 ML SQ SCH ×4 (08:00→21:01)
[2022-01-01] MEDS: HYDRALAZINE HCL 25 MG TAB PO SCH (08:41)
[2022-01-01] MEDS: GLIPIZIDE 5 MG TAB PO SCH ×2 (08:41→16:53)
[2022-01-01] MEDS: ASPIRIN 81 MG CHEW TAB PO SCH (08:41)
[2022-01-01] MEDS: BUSPIRONE HCL 5 MG TAB PO SCH ×2 (08:41→16:53)
[2022-01-01] MEDS: AMLODIPINE BESYLATE 10 MG TAB PO SCH (08:42)
[2022-01-01] MEDS: LORATADINE 10 MG TAB PO SCH (08:42)
[2022-01-01] MEDS: GABAPENTIN 100 MG CAP PO SCH (08:42)
[2022-01-01] MEDS: POTASSIUM CHLORIDE 20 MEQ TAB CR PO SCH (08:42)
[2022-01-01] MEDS: DULOXETINE HCL 30 MG DELAYED RELEASE PO SCH (08:42)
[2022-01-01] MEDS: FUROSEMIDE 40 MG TAB PO SCH (08:42)
[2022-01-01] MEDS: FAMOTIDINE 20 MG TAB PO SCH ×2 (08:43→16:53)
[2022-01-01] MEDS: DONEPEZIL HCL 5 MG TAB PO SCH (21:00)
[2022-01-01] MEDS: INSULIN GLARGINE 100 UNITS/ML VIAL SQ SCH (21:01)
[2022-01-01] MEDS: ACETAMINOPHEN 325 MG TAB PO PRN (21:01)
[2022-01-02] VITALS: BP 140/68
[2022-01-02 04:00] VITALS: BP 159/76
[2022-01-02 08:54] VITALS: BP 156/73
[2022-01-02 08:55] VITALS: BP 156/73
[2022-01-02] MEDS: GLIPIZIDE 5 MG TAB PO SCH ×2 (09:34→18:44)
[2022-01-02] MEDS: LEVOTHYROXINE SODIUM 100 MCG TAB PO SCH (09:34)
[2022-01-02] MEDS: INSULIN REGULAR, HUMAN 100 UNIT/1 ML SQ SCH ×3 (09:35→16:30)
[2022-01-02] MEDS: HYDRALAZINE HCL 25 MG TAB PO SCH (09:35)
[2022-01-02] MEDS: LORATADINE 10 MG TAB PO SCH (09:35)
[2022-01-02] MEDS: GABAPENTIN 100 MG CAP PO SCH (09:35)
[2022-01-02] MEDS: DULOXETINE HCL 30 MG DELAYED RELEASE PO SCH (09:35)
[2022-01-02] MEDS: ASPIRIN 81 MG CHEW TAB PO SCH (09:35)
[2022-01-02] MEDS: FUROSEMIDE 40 MG TAB PO SCH (09:35)
[2022-01-02] MEDS: BUSPIRONE HCL 5 MG TAB PO SCH ×2 (09:35→18:44)
[2022-01-02] MEDS: POTASSIUM CHLORIDE 20 MEQ TAB CR PO SCH (09:35)
[2022-01-02] MEDS: DONEPEZIL HCL 5 MG TAB PO SCH (09:36)
[2022-01-02] MEDS: TRAMADOL HCL 50 MG TAB PO PRN (09:36)
[2022-01-02] MEDS: AMLODIPINE BESYLATE 10 MG TAB PO SCH (09:36)
[2022-01-02] MEDS: FAMOTIDINE 20 MG TAB PO SCH ×2 (09:36→18:44)
[2022-01-02 12:00] VITALS: BP 143/68
[2022-01-02] MEDS: ACETAMINOPHEN 325 MG TAB PO PRN (12:19)
[2022-01-02] MEDS ORDERED: ONDANSETRON HCL 4 MG ORAL DISINTEGRATING TAB PO PRN (16:30)
[2022-01-02] MEDS ORDERED: MEROPENEM500 MG IV (16:43)
[2022-01-02 17:11] VITALS: BP 148/64
== END 2022-01-02 19:00 | DRG 52 ==
LOC: ER 05:12 → ERHOLD 07:45 → MED/SURG2 08:45
PROVIDERS: ADMIT Internal Medicine; ATTEND Internal Medicine
DX: G82.50 Quadriplegia, unspecified (principal); N39.0 Urinary tract infection, site not specified; Z16.12 Extended spectrum beta lactamase (ESBL) resistance; N31.9 Neuromuscular dysfunction of bladder, unspecified; Z74.09 Other reduced mobility; K21.9 Gastro-esophageal reflux disease without esophagitis; B96.20 Unspecified Escherichia coli [E. coli] as the cause of diseases classified elsewhere; R31.9 Hematuria, unspecified; I10 Essential (primary) hypertension; M06.9 Rheumatoid arthritis, unspecified; E03.9 Hypothyroidism, unspecified; F41.9 Anxiety disorder, unspecified; F32.A Depression, unspecified; Z20.822 Contact with and (suspected) exposure to COVID-19; Z90.49 Acquired absence of other specified parts of digestive tract; Z90.710 Acquired absence of both cervix and uterus
CPT/HCPCS: 36415; 71045; 74178; 80053; 81001; 82550; 82553; 82948; 83735; 83880; 84484; 85025; 85610; 85730; 87040; 87086; 87186; 94799; 96361; 99284; J0696; J1815; J1817; J2185; J7030; J7050; Q9967; U0002